=== PATIENT | female | born 1970 | race Two or more races ===

== ENCOUNTER 2024-09-25 14:10 | Outpatient (REF) | payer SELFPAY ==
[2024-09-25 16:04] LABS: Appearance Urine Clear; Color Urine Yellow; Glucose Urine UA Negative (Negative); Leukocyte Esterase Urine Negative (Negative); Nitrite Urine Negative (Negative); PH 6.5 (5.0-9.0); Specific Gravity - Urine 1.015 (1.005-1.025); Urine Blood Negative (Negative); Urine Ketones Negative (Negative); Urine Protein Negative (Neg-Trace)
[2024-09-25 16:07] LABS: Bacteria Urine None Seen (None Seen); Hyaline Casts Urine 0-2 /LPF (0-2); RBC Urine 0-2 /HPF (0-2); WBC Urine 0-5 /HPF (0-5)
--- OUTSIDE RECORDS SUMMARY | 2024-09-25 16:12 | XMS_ITS | Encounter Summary ---
Author Organization [facility] Address [address] [place] [address] Care Team Providers Care Gallery Or Museum Technician Name Role Phone Unavailable Primary Care Provider Unavailabl e Reason for Referral * Imaging (Routine) - Authorized Specialty Diagnoses / Procedures Referred By Satnam muhammad Referred To Contact Radiology Diagnoses Encounter for screening mammogram for malignant neoplasm of breast Procedures BI Mammogram Screening Tomosynthesis Bilateral Scarlett Perez MD [address] [place] [phone] Phone: tel: fax: [address] Phone: tel: fax: Referral ID Status Reason Start Date Expiration Date V isits Requested Visits Authorized [id number] Authorized 09/25/2024 09/25/2025 1 1 Reason for Visit * Reason Comments Generalized Body Aches Encounter Details Date Type Department Care Team (Latest Contact Info) Description 09/25/2024 1:40 PM EDT Office Visit [facility] [address] [place] [address] [phone] Scarlett Perez MD [address] [place] [address] [phone] H/O thyroidectomy (Primary Dx); Mixed hyperlipidemia; Sore throat; Primary HSV infection of mouth; Encounter for screening mammogram for malignant neoplasm of breast Social History Tobacco Use Types Packs/Day Years Used Date Smoking Tobacco: Never Smokeless Tobacco: Never Alcohol Use Standard Drinks/Week Comments Defer 0 (1 standard drink = 0.6 oz pur e alcohol) Alcohol Answer Date Recorded How often do you have a drink containing alcohol ? 0 09/25/2024 How many drinks containing a lcohol do you have on a typical day when you are drinking? 0 09/25/2024 How often do you have six or more drinks on one occasion? 0 09/25/2024 Comments Unknown Sex and Gender Information Value Date Recorded Sex Assigned at Female 09/05/2024 9:45 AM EST Legal Sex Female 9:44 AM EST Gender Identity Female 09/05/2024 9:45 AM EST Sexual Orientation Straight 09/05/2024 9 :45 AM EST documented as of this encounter Last Filed Vital Signs Vital Sign Reading Time Taken Comments Blood Pressure 122/73 09/25/2024 1:39 PM EDT Pulse 64 09/25/2024 1:39 PM EDT Temperature 36.7 ??C (98.1 ??F) 09/25/2024 1:39 PM ED T Respiratory Rate 18 09/25/2024 1:39 PM EDT Oxygen Saturation 98% 09/25/2024 1:39 PM EDT Inhaled Oxygen Concentration - - Weight 71.6 kg (157 lb 12.8 oz) 09/25/2024 1:39 PM EDT Height - - Body Mass Index - - documented in this encounter Progress Notes * Scarlett Perez MD - 09/25/2024 1:40 PM EDT SUBJECTIVE: Bonnie Worthy is a 53 y.o. year old female who presents for acute visit. Denies recent illness, ER visit, or hospitalization. Acute Concerns: LEARY, body aches, chills, L sided back pain, L ear pain for one day. She also notes L sided ear pain,and a cold sore on her upper lip. She has been vaccinated against Flu, though not against COVID this year. Flu and COVID negative in clinic Interim Updates: PMH: hypothyroidism PSH: thyroidectomy 20 years ago Hysterectomy 16 years ago Gallbladder 25 years ago , kids are 31 and 21 Meds: synthroid 100mcg (but has been out for over one month) No smoking, drinking, or illicit drug use Health Maintenance Mammo- due Pap- not needed due to her history of hysterectomy Patient Active Problem List Diagnosis Prediabetes Seasonal allergies Mixed hyperlipidemia H/O thyroidectomy History reviewed. No pertinent surgical history. No family history on file. Social History Social History Narrative Not on file Review of Systems Constitutional: Positive for activity change, appetite change and chills. Negative for diaphoresis,fatigue, fever and unexpected weight change. HENT: Positive for dental problem, ear pain and sore throat. Negative for congestion, drooling, eardischarge, mouth sores and nosebleeds. Lip lesion Eyes: Negative for photophobia, pain, discharge, redness, itching and visual disturbance. Respiratory: Negative for cough and shortness of breath. Cardiovascular: Negative. Gastrointestinal: Negative. Musculoskeletal: Negative. Skin: Negative. Neurological: Positive for headaches. Psychiatric/Behavioral: Negative. OBJECTIVE: Vitals: 09/25/24 1339 BP: 122/73 BP Location: Left arm Patient Position: Sitting BP Cuff Size: Adult Pulse: 64 Resp: 18 Temp: 98.1 ??F (36.7 ??C) TempSrc: Oral SpO2: 98% Weight: 157 lb 12.8 oz (71.6 kg) Physical Exam Vitals and nursing note reviewed. Constitutional: Appearance: Normal appearance. HENT: Head: Normocephalic and atraumatic. Right Ear: Hearing, tympanic membrane, ear canal and external ear normal. Left Ear: A middle ear effusion is present. Mouth/Throat: Comments: Upper lip with erythematous ulcerated lesion Cardiovascular: Rate and Rhythm: Normal rate and regular rhythm. Pulses: Normal pulses. Heart sounds: Normal heart sounds. Pulmonary: Effort: Pulmonary effort is normal. Breath sounds: Normal breath sounds. Skin: General: Skin is warm and dry. Neurological: General: No focal deficit present. Mental Status: She is alert and oriented to person, place, and time. Psychiatric: Mood and Affect: Mood normal. Behavior: Behavior normal. ASSESSMENT/PLAN Problem List Items Addressed This Visit Mixed hyperlipidemia Relevant Orders Comprehensive Metabolic Panel Lipid Panel, Standard Hemoglobin A1c H/O thyroidectomy - Primary Relevant Orders TSH W/Reflex to FT4 Other Visit Diagnoses Sore throat Relevant Orders POCT Rapid COVID Ag Influenza A (ID NOW Rapid Molecular) Influenza B (ID NOW Rapid Molecular) Urinalysis, Complete, with Reflex to Culture Primary HSV infection of mouth Relevant Medications valACYclovir (Valtrex) 1 g tablet Encounter for screening mammogram for malignant neoplasm of breast Relevant Orders BI Mammogram Screening Tomosynthesis Bilateral Follow Up: with new PCP months or sooner prn Allergies Allergen Reactions Fish-Derived Products Penicillin G Current Outpatient Medications: acetaminophen (Tylenol) 500 MG tablet, Take 1 tablet (500 mg) by mouth every 6 (six) hours if needed for mild pain for up to 7 days., Disp: 28 tablet, Rfl: 0 cetirizine (ZyrTEC) 10 MG tablet, Take 1 tablet (10 mg) by mouth Once per day. For ear pain, Disp: 30 tablet, Rfl: 0 clindamycin (Cleocin) 150 MG capsule, Take 2 capsules (300 mg) by mouth 4 times daily for 7 days., Disp: 56 capsule, Rfl: 0 ibuprofen 400 MG tablet, Take 1.5 tablets (600 mg) by mouth every 6 (six) hours for 7 days., Disp: 42 tablet, Rfl: 0 levothyroxine (Synthroid, Levoxyl) 100 MCG tablet, Take 100 mcg by mouth before breakfast., Disp: ,Rfl: valACYclovir (Valtrex) 1 g tablet, Take 2 tablets (2,000 mg) by mouth 2 times daily for 1 day., Disp: 4 tablet, Rfl: 5 Hong Konger Translation: Patient is bilingual and declines translation services documented in this encounter Plan of Treatment Upcoming Encounters Date Type Department Care Team (Late st Contact Info) Description 10/09/2024 11:00 AM EDT Office Visit [facility] [address] [place] [address] Espinal Saranyaanpreet [address] [place] [address] Scheduled Orders Name Type Priority Associated Diagnoses Orde r Schedule POCT Rapid COVID Ag Point of Care Testing Routine Sore throat Ordered: 09/25/2024 Influenza A (ID NOW Rapid Molecular) Point of Care Testing Routine Sore throat Ordered: 09/25/2024 Influenza B (ID NOW Rapid Molecular) Point of Care Testing Routine Sore throat Ordered: 09/25/2024 Comprehensive Metabolic Panel Lab Routine Mixed hyperlipidemia Expected: 09/25/2024 (Approximate), Expires: 09/25/2025 TSH W/Reflex to FT4 Lab Routine H/O thyroidectomy Expected: 09/25/2024 (Approximate), Expires: 09/25/2025 Lipid Panel, Standard Lab Routine Mixed hyperlipidemia Expected: 09/25/2024 (Approximate), Expires: 09/25/2025 Hemoglobin A1c Lab Routine Mixed hyperlipidemia Expected: 09/25/2024 (Approximate), Expires: 09/25/2025 BI Mammogram Screening Tomosynthesis Bilateral Imaging Routine Encounter for screening mammogram for malignant neoplasm of breast Expected: 09/25/2024, Expires: 11/25/2025 documented as of this encounter Procedures Procedure Name Priority Date/Time Associated Diagnosis Comments URINALYSIS, COMPLETE, WITH REFLEX TO CULTURE Routine 09/25/2024 2:13 PM EDT Sore throat documented in this encounter Results * Urinalysis, Complete, with Reflex to Culture (09/25/2024 2:13 PM EDT) Color Urine Yellow [facility] Appearance Urine Clear [facility] PH 6.5 5.0 - 9.0 [facility] Glucose Urine UA Negative Negative mg/dL [facility] Urine Blood Negative Negative [facility] Specific [place] - Urine 1.015 1.005 - 1.025 [facility] Urine Protein Negative Neg-Trace mg/dL [facility] Urine Ketones Negative Negative mg/dL [facility] Nitrite Urine Negative Negative [facility] Leukocyte Esterase Urine Negative Negative [facility] RBC Urine 0-2 0 - 2 /HPF [facility] Urine WBC 0-5 0 - 5 /HPF [facility] Urine Squamous Epithelial Cell 6-10 0 - 2 /HPF [facility] Urine Bacteria None Seen None Seen [facility] Hyaline Casts, Urine 0-2 0 - 2 /LPF [facility] Urine 09/25/2024 2:13 PM EDT 09/25/2024 3:58 PM EDT Narrative [facility] - 09/25/2024 4:07 PM EDT Urine, Clean Catch us Scarlett Perez MD LAB URINE ORDERABLES Final Res ult [facility] [address] [place] [address] [phone] documented in this encounter Visit Diagnoses Diagnosis H/O thyroidectomy- Primary Mixed hyperlipidemia Sore throat Acute pharyngitis Primary HSV infection of mouth Encounter for screening mammogram for malignant neoplasm of breast documented in this encounter
--- OUTSIDE RECORDS SUMMARY | 2024-09-25 16:12 | XMS_ITS | Encounter Summary ---
Author Organization [employer] Address [address] [place] [address] Care Team Providers Care Concrete Smoother Name Role Phone Unavailable Primary Care Provider Unavailabl e Reason for Visit * Reason Comments Routine Cleaning Dental Exam Encounter Details Date Type Department Care Team ([facility] st Contact Info) Description 09/06/2024 11:00 AM EST Office Visit [facility] [address] [place] [address] Shelby Abraham Social History Tobacco Use Types Packs/Day Years Used Date Smoking Tobacco: Never Smokeless Tobacco: Never Tobacco Cessation:Counseling Given: Not Answered Alcohol Use Standard Drinks/Week Comments Defer 0 (1 standard drink = 0.6 oz pur e alcohol) Comments Unknown Sex and Gender Information Value Date Recorded Sex Assigned at Female 09/05/2024 9:45 AM EST Legal Sex Female 9:44 AM EST Gender Identity Female 09/05/2024 9:45 AM EST Sexual Orientation Straight 09/05/2024 9: 45 AM EST documented as of this encounter Last Filed Vital Signs Vital Sign Reading Time Taken Comments Blood Pressure 128/84 09/06/2024 10:52 AM EST Pulse - - Temperature - - Respiratory Rate - - Oxygen Saturation - - Inhaled Oxygen Concentration - - Weight - - Height - - Body Mass Index - - documented in this encounter Progress Notes * Shelby Abraham - 09/06/2024 11:00 AM EST Patient ID: Bonnie Worthy is a 53 y.o. female. Time Out: Timeout Date: 09/06/24, Timeout Time: 1114 Location: [facility] Tooth: Maxilla and Mandible Procedure: X-rays and Prophylaxis Verified the above with patient, nurse assistant, and provider. Confirmed via patient's chart, intraorally and by radiographs. Stripper Machine Operator: not applicable Medical Hx: Vitals: Blood pressure 128/84. Medications, Med Hx reviewed with patient and updated in chart. Treatment Provided Dental procedures in this visit D1110 - PROPHYLAXIS - ADULT (Completed) Service provider: Shelby Salinas provider: Estrella Espinal [id number] - CASE PRESENTATION, DETAILED AND EXTENSIVE TREATMENT PLANNING (Completed) Service provider: Shelby Abraham Billjames provider: Estrella Espinal D1330 - ORAL HYGIENE INSTRUCTIONS (Completed) Service provider: Shelby Abraham Billjames provider: Estrella Espinal D0210 - INTRAORAL - COMPLETE SERIES OF RADIOGRAPHIC IMAGES (Completed) Service provider: Shelby Abraham Billjames provider: Estrella Espinal Instruments Used: Ultrasonic Scalers, Hand Scalers, and Prophy angle Fluoride: N/A Oral Cancer Screening: No lesions Head/Neck Exam: No Lesions Calculus: Light and Generalized Plaque: Light and Generalized Stain: Heavy and Generalized Bleeding: Light and Localized Gingiva: Perio Charting Completed, Recession- localized, and Erythematous OH: Poor Perio Chart: Completed Oral hygiene instructions provided to patient including brushing technique and flossing. Recommendations: Sidney two times daily, modified shah technique, Floss daily, Electric toothbrush, Soft bristle toothbrush, Sidney Tongue, Anti-sensitivity toothpaste Recall Frequency: 6 mo NV: Exam Hygienist: Shelby Abraham RDH documented in this encounter Plan of Treatment Upcoming Encounters Date Type Department Care Team (Late st Contact Info) Description 10/09/2024 11:00 AM EDT Office Visit [facility] [address] [place] [address] Espinal[place] cardenasrandall [address] [place] [address] Scheduled Orders Name Type Priority Associated Diagnoses Orde r Schedule COMPREHENSIVE ORAL EVALUATION - NEW OR ESTABLISHED PATIENT Dental Routine 1 Occurrence s starting 09/06/2024 documented as of this encounter Procedures Procedure Name Priority Date/Time Associated Diagnosis Comments PROPHYLAXIS - ADULT Routine 09/06/2024 1 1:00 AM EST ORAL HYGIENE INSTRUCTIONS Routine 02/19/ 2025 11:00 AM EST INTRAORAL - COMPLETE SERIES OF RADIOGRAPHIC IMAGES Routine 09/06/2024 11:00 AM EST CASE PRESENTATION, DETAILED AND EXTENSIVE TREATMENT PLANNING Routine 09/06/2024 11:00 AM EST documented in this encounter Visit Diagnoses Not on filedocumented in this encounter
--- OUTSIDE RECORDS SUMMARY | 2024-09-25 16:12 | XMS_ITS | Encounter Summary ---
Author Organization [employer] Address [address] [facility] [address] [place] [address] Care Team Providers Care Logistics Planner Name Role Phone Unavailable Primary Care Provider Unavailabl e Reason for Visit * Reason Comments Dental Pain Lower anterior gums hurt/ swollen Encounter Details Date Type Department Care Team ([facility] st Contact Info) Description 09/18/2024 2:00 PM EST Office Visit [facility] [address] [place] [address] Estrella Espinal [address] [place] [address] Social History Tobacco Use Types Packs/Day Years [...] AM EST documented as of this encounter Progress Notes * Estrella Espinal - 09/18/2024 2:00 PM EST Images from the original note were not included. Dental procedures in this visit D0140 - LIMITED ORAL EVALUATION - PROBLEM FOCUSED (Completed) Service provider: Estrella Espinal Billing provider: Estrella Espinal [id number] - CASE PRESENTATION, DETAILED AND EXTENSIVE TREATMENT PLANNING (Completed) Service provider: Estrella Espinal Billing provider: Estrella Espinal Patient ID: Bonnie Worthy is a 53 y.o. female. Time Out: Timeout Date: 09/18/24 (emergency), Timeout Time: 1414 Location: [facility] Tooth: Lower anterior teeth Procedure: Exam Verified the above with patient, radiology assistant, and provider. Confirmed via patient's chart, intraorally and by radiographs. Fur Trimmer: Yes. Language: Burmese. Fur Trimmer's Name: Pt's relative Chief Complaint Patient presents with Dental Pain Lower anterior gums hurt/ swollen Medical Hx: Vitals: There were no vitals taken for this visit. Past Medical History: Diagnosis Date Disease of thyroid gland History of ST elevation myocardial infarction (STEMI) Medications: Outpatient Encounter Medications as of 09/18/2024 Medication Sig Dispense Refill levothyroxine (Synthroid, Levoxyl) 100 MCG tablet Take 100 mcg by mouth before breakfast. acetaminophen (Tylenol) 500 MG tablet Take 1 tablet (500 mg) by mouth every 6 (six) hours if neededfor mild pain for up to 7 days. 28 tablet 0 albuterol 108 (90 Base) MCG/ACT inhaler Inhale 2 puffs every 4 (four) hours if needed. (Patient nottaking: Reported on 09/18/2024) clindamycin (Cleocin) 150 MG capsule Take 2 capsules (300 mg) by mouth 4 times daily for 7 days. 56capsule 0 ibuprofen 400 MG tablet Take 1.5 tablets (600 mg) by mouth every 6 (six) hours for 7 days. 42 tablet 0 loratadine (Claritin) 10 MG tablet Take 10 mg by mouth if needed each day. (Patient not taking: Reported on 09/18/2024) montelukast (Singulair) 10 MG tablet Take 10 mg by mouth at bedtime. (Patient not taking: Reported on 09/18/2024) Multiple Vitamin (Multi-Vitamin) tablet Take 1 tablet by mouth Once per day. (Patient not taking: Reported on 09/18/2024) omeprazole (PriLOSEC) [address] capsule Take 20 mg by mouth before breakfast. (Patient not taking: Reported on 09/18/2024) No facility-administered encounter medications on file as of 09/18/2024. 53 y/o female presents for an emergency exam seen by Dr. Estrella Espinal DMD. Chief Complaint: I have pain in lower anterior teeth since I got cleaning couple of days back Medical History: Patient does not report any changes in health issues that could alter the Treatment Plan. Medical consult / medical clearance needed: None KLETSEL DEHE WINTUN: Pain: moderate Duration: intermittent Pain radiating: no Postural variation: no Allergies: Reviewed in EHR Medications: Reviewed in EHR Radiographs X-rays taken today: none taken today Discussion: -Pt stated that patient has pain in lower anterior teeth since pt got cleaning done and also has sensitivity to cold and hot foods and beverages. -Upon exam, periapical abscess evident in relation to #23, #24 with redness, tenderness and inflammation in lower anterior gingival tissues in relation to #22-#27 region. -Redness and inflammation noted in relation #22. -#23, 24 grade 1-2 mobile; #25 chipped tooth (missing filling/trauma/accident??- pt not sure). -Periapical radiolucency evident in relation to #22, #24, #25 and periapical abscess in relation to#24, #25. -Pt was prescribed antibiotics and pain medications and re-evaluation will be done after 3 weeks. -Pt was also recommended comprehensive exam. -OHI reviewed. Emphasis was laid on maintaining good oral hygiene regimen at home along with regular visits to dentist. -Pt understood, was satisfied with our conversation and agreed with tx plan; dismissed in good condition. -All questions answered. Soft tissue exam: redness and inflammation in lower anterior gingiva and periapical abscess in relation to #24,25; OCS- negative Head and neck exam: Lymph Nodes, Lips, Palate, Buccal Mucosa, Floor of Mouth, Tongue, Tonsils, Alveolar Ridges, Oropharynx, Salivary Ducts, Vestibules - no abnormal findings. TMJ/Occlusal - TMJ is within normal limits. Oral Cancer Risk - low Oral Hygiene Instruction Provided - Yes Oral Hygiene Instructions: Cable two times daily, modified shah technique, Floss daily, Electric toothbrush, Soft bristle toothbrush, Cable Tongue. Referrals - None Treatment plan: -re-evaluation after 3 weeks -exam/x-rays as needed All questions answered and expressed understanding. Dismissed in good condition. Rx: Clindamycin 300 mg 4 times a day for 7 days Ibuprofen 600 mg every 6 hours prn for pain for 7 days Acetaminophen 500 mg every 6 hours prn for pain for 7 days NOTE- Pt mentioned pt is allergic to penicillins but was not sure, so clindamycin was prescribed. NV: re-evaluation after 3 weeks Mule Tender: Dulce Camarillo Dentist: Dr. Estrella Espinal, DMD documented in this encounter Plan of Treatment Upcoming Encounters Date Type Department Care Team ([facility] st Contact Info) Description 10/09/2024 11:00 AM EDT Office Visit [facility] [address] [place] [address] Estrella Espinal [address] [place] [address] Scheduled Orders Name Type Priority Associated Diagnoses Orde r Schedule RE-EVAL - LIMITED, PROBLEM FOCUSED (EST PATIENT; NOT POST-OP VISIT) Dental Routine [address] arting 09/18/2024 documented as of this encounter Procedures Procedure Name Priority Date/Time Associated Diagnosis Comments LIMITED ORAL EVALUATION - PROBLEM FOCUSED Routine 09/18/2024 2:00 PM EST CASE PRESENTATION, DETAILED AND EXTENSIVE TREATMENT PLANNING Routine 09/18/2024 2:00 PM EST documented in this encounter Visit Diagnoses Not on filedocumented in this encounter
--- OUTSIDE RECORDS SUMMARY | 2024-09-25 16:13 | XMS_ITS | Clinical Summary ---
Author Organization [employer] Address [address] [place] [address] Care Team Providers Care Erp Specialist Name Role Phone Unavailable Primary Care Provider Unavailabl e Allergies Active Allergy Reactions Criticality Noted Date Comments Fish-Derived Products 02/25/2024 Penicillin G 09/18/2024 Medications levothyroxine (Synthroid, Levoxyl) 100 MCG tablet Take 100 mcg by mouth before breakfast. 06/14/20 24 Active clindamycin (Cleocin) 150 MG capsule Take 2 capsules (300 mg) by mouth 4 times daily for 7 days. 56 capsule 09/19/19 25 025 Active ibuprofen 400 MG tablet Take 1.5 tablets (600 mg) by mouth every 6 (six) hours for 7 days. 42 tablet 09/19/19 25 025 Active acetaminophen (Tylenol) 500 MG tablet Take 1 tablet (500 mg) by mouth every 6 (six) hours if needed for mild pain for up to 7 days. 28 tablet 09/26/19 25 025 Active cetirizine (ZyrTEC) 10 MG tablet Take 1 tablet (10 mg) by mouth Once per day. For ear pain 30 tablet 09/26/19 25 025 Active valACYclovir (Valtrex) 1 g tabletIndicati ons:Primary HSV infection of mouth Take 2 tablets (2,000 mg) by mouth 2 times daily for 1 day. 4 tablet 5 09/26/19 25 025 Active albuterol 108 (90 Base) MCG/ACT inhaler Inhale 2 puffs every 4 (four) hours if needed. 02/25/20 24 025 Discontinued(Th erapy completed) omeprazole (PriLOSEC) [address] capsule Take 20 mg by mouth before breakfast. 06/14/20 025 Discontinued( erapy completed) Multiple Vitamin (Multi-Vitamin ) tablet Take 1 tablet by mouth Once per day. 04/18/20 025 Discontinued( erapy completed) montelukast (Singulair) 10 MG tablet Take 10 mg by mouth at bedtime. 02/25/20 025 Discontinued( erapy completed) loratadine (Claritin) 10 MG tablet Take 10 mg by mouth if needed each day. 02/25/20 025 Discontinued( erapy completed) acetaminophen (Tylenol) 500 MG tablet Take 1 tablet (500 mg) by mouth every 6 (six) hours if needed for mild pain for up to 7 days. 28 tablet 09/19/19 Discontinued(Re order (will not trigger notification to Pharmacy)) Active Problems Problem Noted Date Diagnosed Date Prediabetes 02/28/2024 Seasonal allergies 02/28/2024 Mixed hyperlipidemia 02/28/2024 H/O thyroidectomy 02/28/2024 Encounters Date Type Department Care Team Description 09/25/2024 1:40 PM EDT Office Visit [facility] [address] [place] [id number] Scarlett Perez MD H/O thyroidectomy (Primary Dx); Mixed hyperlipidemia; Sore throat; Primary HSV infection of mouth; Encounter for screening mammogram for malignant neoplasm of breast 09/18/2024 2:00 PM EST Office Visit [facility] [address] [place] [address] sEtrella Espinal 09/06/2024 11:00 AM EST Office Visit [facility] [address] [place] [address] Shelby Abraham from Last 3 Months Social History Tobacco Use Types Packs/Day Years [...] Orientation Straight 09/05/2024 9: 45 AM EST Last Filed Vital Signs Vital Sign Reading [...] - - Body Mass Index - - Plan of Treatment Upcoming Encounters Date Type Department Care Team (Late st Contact Info) Description 10/09/2024 11:00 AM EDT Office Visit [facility] [address] [place] [phone] Estrella Espinal [address] [place] [address] Health Maintenance Due Date Last Done Comments CT Colonography 1968 Colonoscopy 1968 Colorectal Cancer Screening 1968 Dental Oral Exam 1968 Depression Screening 1968 Diabetes: Hemoglobin A1C 1968 FIT DNA/Cologuard 1968 FIT 1968 FOBT 1968 SDOH Screening 1968 Sigmoidoscopy 1968 Hepatitis C Screening 1986 DTaP/Tdap/Td Vaccines (1 - Tdap) 10/27/1987 Hepatitis B Vaccines (1 of 3 - 19+ 3-dose series) 10/27/1987 Pap Smear 1989 Cervical Cancer Screening 1998 HPV/Cotest 1998 Mammogram 2008 Pneumococcal Vaccine: 50+ Ye ars (1 of 1 - PCV) 2018 Zoster Vaccines (1 of 2) 2018 COVID-19 Vaccine ( - 2023-2 5 season) 2024 Dental Prophylaxis 03/07/2025 09/06/2024 Dental X-Ray: Bitewings 09/07/2025 09/06/2024 Alcohol/Substance Use Screening 09/25/2025 Tobacco Screening 09/25/2025 09/25/2024 Dental X-Ray: Full Mouth 09/07/2027 09/06/2024 RSV Patients and Pa tients Aged 60 years or older (1 - 1-dose 75+ series) 10/27/2043 HIV Screening Completed 02/25/2024 Influenza Vaccine Completed 04/18/2024 HIB Vaccines Aged Out No longer eligi ble based on patient's age to complete this topic HPV Vaccines Aged Out No longer eligi ble based on patient's age to complete this topic Hepatitis A Vaccines Aged Out No long er eligible based on patient's age to complete this topic IPV Vaccines Aged Out No longer eligi ble based on patient's age to complete this topic Meningococcal Vaccine Aged Out No jostin alee eligible based on patient's age to complete this topic RSV under 20 months Aged Out No longe r eligible based on patient's age to complete this topic Rotavirus Vaccines Aged Out No longer eligible based on patient's age to complete this topic Procedures Procedure Name Priority Date/Time Associated Diagnosis Comments URINALYSIS, COMPLETE, WITH REFLEX TO CULTURE Routine 09/25/2024 2:13 PM EDT Sore throat CASE PRESENTATION, DETAILED AND EXTENSIVE TREATMENT PLANNING Routine 09/18/2024 2:00 PM EST LIMITED ORAL EVALUATION - PROBLEM FOCUSED Routine 09/18/2024 2:00 PM EST INTRAORAL - COMPLETE SERIES OF RADIOGRAPHIC IMAGES Routine 09/06/2024 11:00 AM EST ORAL HYGIENE INSTRUCTIONS Routine 09/06/2024 11:00 AM EST CASE PRESENTATION, DETAILED AND EXTENSIVE TREATMENT PLANNING Routine 09/06/2024 11:00 AM EST PROPHYLAXIS - ADULT Routine 09/06/2024 1 1:00 AM EST from Last 3 Months Results * Urinalysis, Complete, with Reflex to Culture (09/25/2024 2:13 PM EDT) Color Urine Yellow [facility] Appearance Urine Clear [facility] PH 6.5 5.0 - 9.0 [facility] Glucose Urine UA Negative Negative mg/dL [facility] Urine Blood Negative Negative [facility] Specific [place] - Urine 1.015 1.005 - 1.025 [facility] Urine Protein Negative Neg-Trace mg/dL [facility] Urine Ketones Negative Negative mg/dL [facility] Nitrite Urine Negative Negative [facility] Leukocyte Esterase Urine Negative Negative [facility] RBC Urine 0-2 0 - 2 /HPF [facility] Urine WBC 0-5 0 - 5 /HPF [facility] Urine Squamous Epithelial Cell 6-10 0 - 2 /HPF [facility] Urine Bacteria None Seen None Seen [facility] Hyaline Casts, Urine 0-2 0 - 2 /LPF [facility] Urine 09/25/2024 2:13 PM EDT 09/25/2024 3:58 PM EDT Narrative [facility] - 09/25/2024 4:07 PM EDT Urine, Clean Catch us Scarlett Perez MD LAB URINE ORDERABLES Final Res ult [facility] [address] [place] [address] [phone] from Last 3 Months Insurance [employer] HSN FULL DENTAL - HSN FULL (MEDICAID)
--- OUTSIDE RECORDS SUMMARY | 2024-09-25 16:13 | XMS_ITS | Clinical Summary ---
Author Organization [facility] Address [address] [place] [address] Care Team Providers Care Risk Manager Name Role Phone Robin Arriola NP Primary Care Provider [phone] Source Comments PLEASE NOTE, if this patient is a minor, it may be UNLAWFUL to discuss sensitive information that is contained in these records (such as FAMILY PLANNING, MENTAL HEALTH or SUBSTANCE ABUSE) with the minor patient's parent or other person without the patient's specific authorization.[facility] Allergies Active Allergy Reactions Criticality Noted Date Comments Diphth,Pertus(Acell),Tetanus Swelling 024 Fish Containing Products 02/25/2024 Medications loratadine (CLARITIN) 10 mg tabletIndications: Seasonal allergies Take 1 Tablet by mouth once daily as needed for allergies 90 Tablet 4 Active acetaminophen (TYLENOL) 500 mg tabletIndications: Body aches Take 1 Tablet by mouth every 6 (six) hours as needed for pain 30 Tablet 4 Active albuterol HFA 90 mcg/actuation inhalerIndications :SOB (shortness of breath) Inhale 2 Puffs into the lungs every 4 (four) hours as needed for shortness of breath 18 g 1 4 Active montelukast (SINGULAIR) 10 mg tabletIndications: SOB (shortness of breath) Take 1 Tablet by mouth nightly at bedtime 90 Tablet 4 Active multivitamin tabletIndications: Other fatigue Take 1 Tablet by mouth once daily for 90 days 30 Tablet 4 Active fluticasone (FLONASE) 50 mcg/actuation nasal sprayIndications:S easonal allergies,Need for vaccination Place 1 [place] in both nostrils once daily for 30 days 16 g 3 4 Active PARoxetine (PAXIL) 20 mg tabletIndications: Anxiety and depression Take 1 Tablet by mouth every morning for 120 days 30 Tablet 3 4 Active levothyroxine 100 mcg tabletIndications: H/O thyroidectomy Take 1 Tablet by mouth every morning before breakfast 90 Tablet 1 4 Active omeprazole (PRILOSEC) [address] capsuleIndications :Dyspepsia Take 1 Capsule by mouth every morning before breakfast 90 Capsule 4 Active Active Problems Problem Noted Date Diagnosed Date Prediabetes 02/28/2024 Mixed hyperlipidemia 02/28/2024 H/O thyroidectomy 02/28/2024 Seasonal allergies 02/28/2024 Immunizations Name Administration Dates Next Due Influenza (FLUBLOK),recombin ant,injectable,preservative Free 04/18/2024 Family History Medical History Relation Name Comments No Known Problems Brother X1 No Known Problems Father Coronary Artery Disease Mother Diabetes Mellitus II Mother HTN Mother Relation Name Status Comments Brother X1 Alive Father Mother Alive Social History Tobacco Use Types Packs/Day Years Used Date Smoking Tobacco: Never Smokeless Tobacco: Never Alcohol Use Standard Drinks/Week Comments Not Currently 0 (1 standard drink = 0.6 oz pur e alcohol) Social Connections Answer Date Recorded Connectedness 0 04/04/2024 Financial Resource Strain Answer Date R ecorded Financial Resource Strain 0 2023 Stress Answer Date Recorded Stress 0 02/25/2024 Physical Activity Answer Date Recorded Physical Activity 0 02/25/2024 Food Insecurity Answer Date Recorded Food 0 04/13/2024 Transportation Needs Answer Date Record ed Transportation 0 02/25/2024 Housing Stability Answer Date Recorded Housing 0 02/25/2024 Safety and Environment Answer Date Mack rded Safety 0 02/25/2024 Utilities Answer Date Recorded Utilities 0 02/25/2024 Employment Answer Date Recorded Stress 0 04/04/2024 Comments No Sex and Gender Information Value Date Recorded Sex Assigned at Female 02/24/2024 7:22 AM PDT Legal Sex Female 7:20 AM PDT Gender Identity Female 02/24/2024 7:22 AM PDT Sexual Orientation Straight 02/24/2024 7: 22 AM PDT Last Filed Vital Signs Vital Sign Reading Time Taken Comments Blood Pressure 130/80 04/18/2024 1:16 PM EDT Pulse 66 04/18/2024 1:16 PM EDT Temperature 36.9 ??C (98.5 ??F) 02/25/2024 9:30 AM ED T Respiratory Rate 16 04/18/2024 1:16 PM EDT Oxygen Saturation 98% 04/18/2024 1:16 PM EDT Inhaled Oxygen Concentration - - Weight 68 kg (150 lb) 06/14/2024 9:17 AM EST Height 132.1 cm (4' 4 ) 04/18/2024 1:16 PM EDT Body Mass Index 39 04/18/2024 1:16 PM EDT Plan of Treatment Health Maintenance Due Date Last Done Comments Imm-DTaP/Tdap/Td (1 - Tdap) 10/27/1987 Imm-Hepatitis B (1 of 3 - 19 + 3-dose series) 10/27/1987 Breast Cancer Screening (Mammogram) 2008 CT Colonography 2013 Colonoscopy 2013 Colorectal Cancer Screening 2013 FIT/gFOBT 2013 Fecal DNA 2013 Flexible Sigmoidoscopy 2013 Imm-Zoster, Recombinant (1 of 2) 2018 [id number] ( season) 2024 Alcohol and Drug Screen 07/19/2024 04/18/2024 Depression Monitoring 07/19/2024 04/18/2024 Diabetes Screening 02/24/2025 02/25/2024, 02/25/2024 Tobacco Screening 02/24/2025 02/25/2024 Hypertension Screening (#1) 04/18/2025 TSH Monitoring 04/19/2025 04/19/2024, 02/25/2024 Lipid Screening 02/24/2027 02/25/2024 HIV Screening Completed 02/25/2024 Hepatitis C Screening Completed 02/25/2024 Imm-Influenza Completed 04/18/2024 Procedures Procedure Name Priority Date/Time Associated Diagnosis Comments TSH W/RFLX FREE T4 Routine 04/19/2024 10 :00 AM EDT H/O thyroidectomy HIV 1/2 AG & AB W/RFLX (4TH GEN) Routine 02/25/2024 10:05 AM EDT Encounter to establish care Other fatigue SOB (shortness of breath) ACUTE HEPATITIS PANEL W/RFLX Routine 02/25/2024 10:05 AM EDT Encounter to establish care Other fatigue SOB (shortness of breath) HGA1C W/EAG Routine 02/25/2024 10:05 AM EDT Encounter to establish care Other fatigue SOB (shortness of breath) LIPIDS W RFLX TO DIRECT LDL Routine 02/25/2024 10:05 AM EDT Encounter to establish care Other fatigue SOB (shortness of breath) from Last 3 Months or Most Recently Relevant to Health Maintenance Results * TSH W/RFLX FREE T4 (04/19/2024 10:00 AM EDT) TSH W/REFLEX TO FT4 1.39 0.40 - 4.50 mIU/L [facility] Comment: ?Reference Range ?> or = 20 Years ??0.40-4.50 ? Ranges ?First trimester ?0.26-2.66 ?Second trimester ?? 0.55-2.73 ?Third trimester ?0.43-2.91 Blood Blood / Unknown 04/19/2024 1 0:00 AM EDT 04/19/2024 10:01 AM EDT Narrative [facility] - 04/20/2024 6:34 AM EDT FASTING:NO us Trevon Ramirez BARBERING TEACHER LAB - BLOOD DRAW Final Resul t [facility] [address] [address], [employer] [facility] [address] [place] [address] * HIV 1/2 AG & AB W/RFLX (4TH GEN) (02/25/2024 10:05 AM EDT) HIV AG/AB, 4TH GEN NON-REAC TIVE NON-REAC TIVE [facility] Comment: HIV-1 antigen and HIV-1/HIV-2 antibodies were not detected. There is no laboratory evidence of HIV infection. PLEASE NOTE: This information has been disclosed to you from records whose confidentiality may be protected by state law. ??If your state requires such protection, then the state law prohibits you from making any further disclosure of the information without the specific written consent of the person to whom it pertains, or as otherwise permitted by law. A general authorization for the release of medical or other information is NOT sufficient for this purpose. ?? For additional information please refer to http://education.[employer]/faq/EUC127 (This link is being provided for informational/ educational purposes only.) The performance of this assay has not been clinically validated in patients less than 2 years old. Blood Blood / Unknown 02/25/2024 1 0:05 AM EDT 02/25/2024 10:05 AM EDT Narrative [facility] - 02/26/2024 8:37 AM EDT FASTING:YES us Laura Mejia PA-C LAB - BLOOD DRAW Final Resul t [facility] [address] [address], [employer] [facility] [address] [place] [address] * (ABNORMAL) HGA1C W/EAG (02/25/2024 10:05 AM EDT) Pathologist [facility] HEMOGLOBIN A1C 6.0(H) <5.7 % of total Hgb [facility] Comment: For someone without known diabetes, a hemoglobin A1c value between 5.7% and 6.4% is consistent with prediabetes and should be confirmed with a follow-up test. For someone with known diabetes, a value <7% indicates that their diabetes is well controlled. A1c targets should be individualized based on duration of diabetes, age, comorbid conditions, and other considerations. This assay result is consistent with an increased risk of diabetes. Currently, no consensus exists regarding use of hemoglobin A1c for diagnosis of diabetes for children. EAG (MG/DL) 126 mg/dL [employer] [facility] EAG (MMOL/L) 7.0 mmol/L [employer] [facility] Blood Blood / Unknown 02/25/2024 1 0:05 AM EDT 02/25/2024 10:05 AM EDT Narrative [facility] - 02/26/2024 8:37 AM EDT FASTING:YES Laura Mejia PA-C LAB - BLOOD DRAW Edited Resu lt - Final [facility] [address] [address], [employer] [address] [address] * ACUTE HEPATITIS PANEL W/RFLX (02/25/2024 10:05 AM EDT) HEPATITIS A IGM ANTIBODY NON-REACT ELLYN NON-REACT ELLYN [facility] COMMENT [facility] HEPATITIS B SURFACE ANTIGEN NON-REACT ELLYN NON-REACT ELLYN [facility] COMMENT [facility] HEPATITIS B CORE IGM ANTIBODY NON-REACT ELLYN NON-REACT ELLYN [facility] COMMENT [facility] HEPATITIS C ANTIBODY NON-REACT ELLYN NON-REACT ELLYN [facility] Comment: HCV antibody was non-reactive. There is no laboratory evidence of HCV infection. In most cases, no further action is required. However, if recent HCV exposure is suspected, a test for HCV RNA (test code 07411) is suggested. For additional information please refer to http://education.[employer]/faq/JPC36r7 (This link is being provided for informational/ educational purposes only.) Blood Blood / Unknown 02/25/2024 1 0:05 AM EDT 02/25/2024 10:05 AM EDT Narrative [facility] - 02/26/2024 8:37 AM EDT FASTING:YES For additional information, please refer to http://[employer]/faq/ITW202 (This link is being provided for informational/ educational purposes only.) For additional information, please refer to http://[employer]/faq/DXD528 (This link is being provided for informational/ educational purposes only.) For additional information, please refer to http://[employer]/faq/KMB216 (This link is being provided for informational/ educational purposes only.) us Laura Mejia PA-C LAB - BLOOD DRAW Final Resul t [facility] [address] [place] [id number], [employer] [address] [address] * (ABNORMAL) LIPIDS W RFLX TO DIRECT LDL (02/25/2024 10:05 AM EDT) [facility] Signature CHOLESTEROL, TOTAL 242(H) <200 mg/dL [employer] [facility] HDL CHOLESTEROL 71 > OR = 50 mg/dL [employer] [facility] TRIGLYCERIDES 140 <150 mg/dL [employer] [facility] LDL-CHOLESTEROL 145(H) 99 mg/dL (calc) [facility] Comment: Reference range: <100 Desirable range <100 mg/dL for primary prevention; ?? <70 mg/dL for patients with CHD or diabetic patients with > or = 2 CHD risk factors. LDL-C is now calculated using the Velma calculation, which is a validated novel method providing better accuracy than the Friedewald equation in the estimation of LDL-C. Rosas GARCIA et al. TRUMAN. 2013;310(19): 7417-2943 (http://education.[employer]/faq/DAG703) CHOL/HDLC RATIO 3.4 <5.0 (calc) [facility] NON-HDL CHOLESTEROL 171(H) <130 mg/dL (calc) [facility] Comment: For patients with diabetes plus 1 major ASCVD risk factor, treating to a non-HDL-C goal of <100 mg/dL (LDL-C of <70 mg/dL) is considered a therapeutic option. Blood Blood / Unknown 02/25/2024 1 0:05 AM EDT 02/25/2024 10:05 AM EDT Narrative [facility] - 02/26/2024 8:37 AM EDT FASTING:YES Laura Mejia PA-C LAB - BLOOD DRAW Final Resul t [facility] [address] [address], [facility] [address] [place] [address] from Last 3 Months or Most Recently Relevant to Health Maintenance Insurance [place] MEDICA[employer] [place] Care Teams Risk Manager Relationship Specialty Start Date End Date Robin Arriola NP [address] [place] [address] PCP - General Family Medicine, KETTLE OPERATOR HEAD 05/11/24
[2024-09-25 16:35] LABS: Estimated Average Glucose 117 mg/dL; Hemoglobin A1C 129.7819 umol/L; Hemoglobin A1c % 5.7 % (<6.0)
[2024-09-25 17:32] LABS: Alanine Aminotransferase 43 U/L (0-31); Albumin Level 3.8 g/dL (3.5-5.0); Alkaline Phosphatase 103 U/L (39-117); Anion Gap 13 (12-20); Aspartate Amino Transferase 32 U/L (5-31); Bilirubin Total 0.5 mg/dL (0.0-1.0); Blood Urea Nitrogen 14 mg/dL (9-16); Calcium 8.6 mg/dL (8.4-10.2); Carbon Dioxide 26 mmol/L (22-29); Chloride 107 mmol/L (96-108); Cholesterol 149 mg/dL (<200); Estimated Glomerular Filt Rate > 60; Glucose Random 117 mg/dL (60-115); HDL Cholesterol 47 mg/dL (>40); LDL Cholesterol Calculated 67 mg/dL (<100); Potassium 4.2 mmol/L (3.3-5.1); Sodium 142 mmol/L (135-145); TSH reflex Free T4 1.73 uIU/mL (0.32-4.0); Total Protein 7.5 g/dL (6.5-8.0); Triglycerides 176 mg/dL (<150)
== END 2024-09-25 14:11 | disposition home or self-care (01) ==
LOC: HO.HHCL 14:10
PROVIDERS: Visit Provider General Practice
DX: E78.2 Mixed hyperlipidemia (principal); J02.9 Acute pharyngitis, unspecified; E89.0 Postprocedural hypothyroidism; Z13.1 Encounter for screening for diabetes mellitus
CPT/HCPCS: 36415; 80053; 80061; 81001; 83036; 84443

== ENCOUNTER 2024-11-23 10:33 | Outpatient (REF) | payer SELFPAY ==
--- OUTSIDE RECORDS SUMMARY | 2024-11-23 11:55 | XMS_ITS | Encounter Summary ---
Author Organization [employer] Address [address] [place] [address] Care Team Providers Care Customer Support Consultant Name Role Phone Unavailable Primary Care Provider Unavailabl e Reason for Visit * Reason Comments Rash Facial Swelling Encounter Details Date Type Department Care Team ([facility] Contact Info) Description 11/23/2024 9:40 AM EDT Office Visit [facility] [address] [place] [phone] Carmen Lombardi MD [address] [place] [phone] Facial swelling (Primary Dx); Rash Social History Tobacco Use Types Packs/Day Years [...] Sign Reading Time Taken Comments Blood Pressure 128/75 11/23/2024 9:42 AM EDT Pulse 74 11/23/2024 9:42 AM EDT Temperature 36.7 ??C (98 ??F) 11/23/2024 9:42 AM EDT Respiratory Rate 16 11/23/2024 9:42 AM EDT Oxygen Saturation 98% 11/23/2024 9:42 AM EDT Inhaled Oxygen Concentration - - Weight 72.8 kg (160 lb 9.6 oz) 11/23/2024 9:42 A M EDT Height - - Body Mass Index - - documented in this encounter Progress Notes * Kameron Armand - 11/23/2024 9:40 AM EDT Subjective Patient ID: Bonnie Worthy is a 54 y.o. female with past medical history of prediabetes, elevated cholesterol, and thyroid disease S/P thyroidectomy who presents to walk in clinic for Rash and Facial Swelling. Pt reports she has had 4 days of facial and arm rashes. She also reports hot flashes, dizziness andarm/leg pains. Pt notes she thinks she is going through menopause. Denies any allergen exposure, but notes she had a similar reaction to allergies in the past not to this extent. Review of Systems Constitutional: Negative for fatigue, fever and unexpected weight change. HENT: Positive for facial swelling. Respiratory: Negative for cough. Cardiovascular: Negative for chest pain. Gastrointestinal: Negative for abdominal pain. Genitourinary: Negative for difficulty urinating. Musculoskeletal: Positive for myalgias. Skin: Positive for rash. Objective Visit Vitals BP 128/75 (BP Location: Left arm, Patient Position: Sitting, BP Cuff Size: Adult) Pulse 74 Temp 98 ??F (36.7 ??C) (Temporal) Resp 16 Wt 160 lb 9.6 oz (72.8 kg) SpO2 98% Smoking Status Never Physical Exam Constitutional: Appearance: Normal appearance. Cardiovascular: Rate and Rhythm: Normal rate and regular rhythm. Heart sounds: Normal heart sounds. Pulmonary: Effort: Pulmonary effort is normal. Breath sounds: Normal breath sounds. Musculoskeletal: Cervical back: Normal range of motion and neck supple. Neurological: General: No focal deficit present. Mental Status: She is alert. Psychiatric: Behavior: Behavior normal. Problem List Items Addressed This Visit Facial swelling - Primary Mild generalized facial swelling. No angioedema. No sign of anaphylaxis. Discussed monitoring symptoms closely and return if any symptoms of anaphylaxis reaction occur. Likely due to mild allergic reaction versus underlying autoimmune component. -Ordered SALUD and DNA Antibody screenings. Relevant Orders DNA (ds) Antibody SALUD Screen,IFA, with Reflex to Titer and Pattern Rash Face and neck rash. Unknown etiology. Appearance similar to contact dermatitis. No sign of anaphylaxis. Discussed monitoring symptoms closely and return if any symptoms of anaphylaxis reaction occur.Likely due to mild allergic reaction versus underlying autoimmune component. -Ordered SALUD and DNA Antibody screenings. Relevant Orders DNA (ds) Antibody SALUD Screen,IFA, with Reflex to Titer and Pattern -No evidence of acute disease process. Suspect possible allergies, but also possible underlying possible autoimmune component. Symptoms mild. -Ordered labs. -ER precautions discussed. -Seek medical attention for worsening symptoms. I, Kameron Acuna, am serving as a scribe to document services personally performed by Dr. Kuo, based on the patient's response to questions by provider and providers statements to me. documented in this encounter Miscellaneous Notes * Assessment & Plan Note - Kameron Acuna - 11/23/2024 10:27 AM EDTAssociated Problem(s): Rash Face and neck rash. Unknown etiology. Appearance similar to contact dermatitis. No sign of anaphylaxis. Discussed monitoring symptoms closely and return if any symptoms of anaphylaxis reaction occur.Likely due to mild allergic reaction versus underlying autoimmune component. -Ordered SALUD and DNA Antibody screenings. * Assessment & Plan Note - Kameron Acuna - 11/23/2024 10:26 AM EDTAssociated Problem(s): Facial swelling Mild generalized facial swelling. No angioedema. No sign of anaphylaxis. Discussed monitoring symptoms closely and return if any symptoms of anaphylaxis reaction occur. Likely due to mild allergic reaction versus underlying autoimmune component. -Ordered SALUD and DNA Antibody screenings. documented in this encounter Plan of Treatment Upcoming Encounters Date Type Department Care Team (Late st Contact Info) Description 12/07/2024 10:30 AM EDT Office Visit [facility] [address] [place] [address] Estrella Espinal [address] [place] [address] 12/26/2024 9:45 AM EDT Office Visit [facility] [address] [place] [address] Scarlett Perez MD [address] [place], [place] [phone] Scheduled Orders Name Type Priority Associated Diagnoses Orde r Schedule DNA (ds) Antibody Lab Routine Facial swelling Rash Expected: 11/23/2024 (Approximate), Expires: 11/23/2025 SALUD Screen,IFA, with Reflex to Titer and Pattern Lab Routine Facial swelling Rash Expected: 11/23/2024 (Approximate), Expires: 11/23/2025 documented as of this encounter Visit Diagnoses Diagnosis Facial swelling- Primary Swelling, mass, or lump in head and neck Rash Rash and other nonspecific skin eruption documented in this encounter
--- OUTSIDE RECORDS SUMMARY | 2024-11-23 11:56 | XMS_ITS | Clinical Summary ---
Author Organization [email or web address] Address [address] [place] [address] Care Team Providers Care Care Nurse Rn Name Role Phone Unavailable Primary Care Provider Unavailabl e Allergies Active Allergy Reactions Criticality Noted Date Comments Fish-Derived Products 02/25/2024 Penicillin G 09/18/2024 Medications levothyroxine (Synthroid) 100 MCG tabletIndications :H/O thyroidectomy Take 1 tablet (100 mcg) by mouth before breakfast. 90 tablet 3 5 09/28/19 26 Active acetaminophen (Tylenol) 500 MG tablet Take 1 tablet (500 mg) by mouth every 6 (six) hours if needed for mild pain for up to 20 doses. 20 tablet 5 Active chlorhexidine (Peridex) 0.12 % solution Swish 15 mL morning and night for 1 minute. Spit, do not swallow. Do not eat or drink for 30 minutes following use. 473 mL 5 Active cetirizine (ZyrTEC) 10 MG tabletIndications :Seasonal allergies TAKE 1 TABLET BY MOUTH ONCE DAILY 90 tablet 5 Active chlorhexidine (Peridex) 0.12 % solution Swish 15 mL morning and night for 1 minute. Spit, do not swallow. Do not eat or drink for 30 minutes following use. 473 mL 5 Active acetaminophen (Tylenol) 500 MG tablet Take 1 tablet (500 mg) by mouth every 6 (six) hours if needed for mild pain for up to 20 doses. 20 tablet 5 Active ibuprofen 600 MG tablet Take 1 tablet (600 mg) by mouth every 6 (six) hours if needed for mild pain for up to 20 doses. 20 tablet Active predniSONE (Deltasone) 20 MG tablet 2 tabs po daily for 5 days 10 tablet Active clindamycin (Cleocin) 300 MG capsule Take 1 capsule (300 mg) by mouth 4 times daily for 7 days. 28 capsule 5 10/28/19 25 Active Problems Problem Noted Date Diagnosed Date Facial swelling 11/23/2024 Assessment & Plan (11/23/2024 10:26 AM EDT): Mild generalized facial swelling. No angioedema. No sign of anaphylaxis. Discussed monitoring symptoms closely and return if any symptoms of anaphylaxis reaction occur. Likely due to mild allergic reaction versus underlying autoimmune component. -Ordered SALUD and DNA Antibody screenings. Rash 11/23/2024 Assessment & Plan (11/23/2024 10:27 AM EDT): Face and neck rash. Unknown etiology. Appearance similar to contact dermatitis. No sign of anaphylaxis. Discussed monitoring symptoms closely and return if any symptoms of anaphylaxis reaction occur. Likely due to mild allergic reaction versus underlying autoimmune component. -Ordered SALUD and DNA Antibody screenings. Prediabetes 02/28/2024 Assessment & Plan (09/27/2024 4:28 PM EDT): A1C 5.7 Seasonal allergies 02/28/2024 Mixed hyperlipidemia 02/28/2024 H/O thyroidectomy 02/28/2024 Assessment & Plan (09/27/2024 4:28 PM EDT): Over 15 years ago Maintained on stable dose of 100mcg Synthroid daily Resolved Problems Problem Noted Date Diagnosed Date Resolved Date Facial rash 11/23/2024 11/23/2024 Encounters Date Type Department Care Team Description 11/23/2024 9:40 AM EDT Office Visit [facility] [address] [place], [place] [phone] Carmen Lombardi MD Facial swelling (Primary Dx); Rash 11/23/2024 Travel 10/20/2024 11:00 AM EDT Office Visit [facility] [address] [place], [place] [phone] Estrella Espinal 10/18/2024 Refill [facility] [address] [place] [phone] Scarlett Perez MD Seasonal allergies 10/09/2024 11:00 AM EDT Office Visit [facility] [address] [place] [address] Hilton Espinalrandall 09/27/2024 Telephone [facility] [address] [place] [phone] Fermín Hernandez MD Medication Question 09/27/2024 Telephone [facility] [address] [place] [phone] Fermín Hernandez MD Med Refill 09/25/2024 1:40 PM EDT Office Visit [facility] [address] [phone] Scarlett Perez MD H/O thyroidectomy (Primary Dx); Mixed hyperlipidemia; Sore throat; Primary HSV infection of mouth; Encounter for screening mammogram for malignant neoplasm of breast; Prediabetes; Seasonal allergies; Impacted cerumen of right ear 09/18/2024 2:00 PM EST Office Visit [facility] [address] [place] [address] Hilton Espinalrandall 09/06/2024 11:00 AM EST Office Visit [facility] [address] [place] [address] Shelby Abraham from Last 3 Months Social [...] Description 12/07/2024 10:30 AM EDT Office Visit [facility] [address] [place] [address] Estrella Espinal [address] [place] [address] 12/26/2024 9:45 AM EDT Office Visit [facility] [address] [place] [address] Scarlett Perez MD [address] [place] [address] Health Maintenance Due Date Last Done Comments CT Colonography 1968 Colonoscopy 1968 Colorectal Cancer Screening 1968 Depression Screening 1968 FIT DNA/Cologuard 1968 FIT 1968 FOBT 1968 SDOH Screening 1968 Sigmoidoscopy 1968 Hepatitis C Screening 1986 DTaP/Tdap/Td Vaccines (1 - Tdap) 10/27/1987 Hepatitis B Vaccines (1 of 3 - 19+ 3-dose series) 10/27/1987 Pap Smear 1989 Cervical Cancer Screening 1998 HPV/Cotest 1998 Mammogram 2008 Pneumococcal Vaccine: 50+ Years (1 of 1 - PCV) 2018 Zoster Vaccines (1 of 2) 2018 COVID-19 Vaccine (2023-2 5 season) 2024 Dental Prophylaxis 03/07/2025 09/06/2024 Dental Oral Exam 04/22/2025 10/20/2024 Dental X-Ray: Bitewings 09/07/2025 09/06/2024 Alcohol/Substance Use Screening 09/25/2025 09/25/2024 Diabetes: Hemoglobin A1C 09/25/2025 025, 02/25/2024 Tobacco Screening 11/23/2025 11/23/2024 Dental X-Ray: Full Mouth 09/07/2027 09/06/2024 RSV Patients and Patients Aged 60 years or older (1 - [...] Procedure Name Priority Date/Time Associated Diagnosis Comments CASE PRESENTATION, DETAILED AND EXTENSIVE TREATMENT PLANNING Routine 10/20/2024 11:00 AM EDT PERIODIC ORAL EVALUATION - ESTABLISHED PATIENT Routine 10/20/2024 11:00 AM EDT 15 O COMPOSITE FILLING Routine 10/20/2024 12:00 AM EDT 16 O AMALGAM FILLING Routine 10/20/2024 12:00 AM EDT 14 O AMALGAM FILLING Routine 10/20/2024 12:00 AM EDT 13 O COMPOSITE FILLING Routine 10/20/2024 12:00 AM EDT 12 O COMPOSITE FILLING Routine 10/20/2024 12:00 AM EDT 31 O COMPOSITE FILLING Routine 10/20/2024 12:00 AM EDT 18 O COMPOSITE FILLING Routine 10/20/2024 12:00 AM EDT 19 ANETA COMPOSITE FILLING Routine 10/20/2024 12:00 AM EDT 2 O COMPOSITE FILLING Routine 10/20/2024 12:00 AM EDT 3 DO COMPOSITE FILLING Routine 10/20/2024 12:00 AM EDT CASE PRESENTATION, DETAILED AND EXTENSIVE TREATMENT PLANNING Routine 10/09/2024 11:00 AM EDT INTRAORAL - PERIAPICAL FIRST RADIOGRAPHIC IMAGE Routine 10/09/2024 11:00 AM EDT RE-EVAL - LIMITED, PROBLEM FOCUSED (EST PATIENT; NOT POST-OP VISIT) Routine 10/09/2024 11:00 AM EDT URINALYSIS, COMPLETE, WITH REFLEX TO CULTURE Routine 09/25/2024 2:13 PM EDT Mixed hyperlipidemia HEMOGLOBIN A1C Routine 09/25/2024 2:13 PM EDT Mixed hyperlipidemia LIPID PANEL, STANDARD Routine 09/25/2024 2:13 PM EDT Mixed hyperlipidemia TSH W/REFLEX TO FT4 Routine 09/25/2024 2 :13 PM EDT H/O thyroidectomy COMPREHENSIVE METABOLIC PANEL Routine 09/25/2024 2:13 PM EDT Mixed hyperlipidemia CASE PRESENTATION, DETAILED AND EXTENSIVE TREATMENT PLANNING [...] (09/25/2024 2:13 PM EDT) Color Urine Yellow [facility] Appearance Urine Clear [facility] PH 6.5 5.0 - 9.0 [facility] Glucose Urine UA Negative Negative mg/dL [facility] Urine Blood Negative Negative [facility] Specific Gardner - Urine 1.015 1.005 - 1.025 [facility] Urine Protein Negative Neg-Trace mg/dL [facility] Urine Ketones Negative Negative mg/dL [facility] Nitrite Urine Negative Negative [facility] Leukocyte Esterase Urine Negative Negative [facility] RBC Urine 0-2 0 - 2 /HPF [facility] Urine WBC 0-5 0 - 5 /HPF [facility] Urine Squamous Epithelial Cell 6-10 0 - 2 /HPF [facility] Urine Bacteria None Seen None Seen [facility] Hyaline Casts, Urine 0-2 0 - 2 /LPF [facility] Urine 09/25/2024 2:13 PM EDT 09/25/2024 3:58 PM EDT Narrative [facility] - 09/25/2024 4:07 PM EDT Urine, Clean Catch Scarlett Perez MD LAB URINE ORDERABLES Final Res ult Performing Organization Address City/[facility] Co de Phone Number [facility] [address] [place] [phone] * TSH W/Reflex to FT4 (09/25/2024 2:13 PM EDT) TSH reflex Free T4 1.73 0.32 - 4.0 uIU/mL [facility] Blood Venous blood specimen / Unknown 09/25/2024 2:13 PM EDT 09/25/2024 4:07 PM EDT Scarlett Perez MD LAB BLOOD ORDERABLES Final Res ult Performing Organization Address [facility] Co de Phone Number [facility] [address] [place] [address] [phone] * Hemoglobin A1c (09/25/2024 2:13 PM EDT) Hemoglobin A1c 5.7 <6.0 % [facility] Comment:Hemoglobin A1C Refer ence Range Adults: 4.8 - 6.0 % Non diabetic: < 6.0 % Goal: < 7.0 %Additional Action Suggested: > 8.0 %Note: Hemoglobin A1c results are invalid for patients with abnormal amounts of HbF. Blood transfusions may impact the HbA1c concentration in the patient sample. Estimated Average Glucose 117 mg/dL [facility] Comment:eAG = Estimated ave rage glucose which is %A1C expressed asaverage glucose, using the formula of the S1N-[id number] Glucose study (ADAG), Diabetes Care, Vol.31,#8,Feb. 2007 Blood Venous blood specimen / Unknown 09/25/2024 2:13 PM EDT 09/25/2024 4:00 PM EDT us Scarlett Perez MD LAB BLOOD ORDERABLES Final Res ult [facility] [address] [place] [phone] * (ABNORMAL) Lipid Panel, Standard (09/25/2024 2:13 PM EDT) Triglycerides 176(H) <150 mg/dL [facility] Comment:Slight Lipemia.Glory able Triglyceride: less than 150 mg/dLBorderline High Triglyceride 150-199 mg/dLHigh Triglyceride: 200-499 mg/dLVery High Triglyceride: greater than or equal to 5OO mg/dL Cholesterol 149 <200 mg/dL [facility] Comment:Desirable Cholestero l: less than 200 mg/dLBorderline High Cholesterol: 200-239 mg/dLHigh Cholesterol: greater than 239 mg/dL LDL Cholesterol Calculated 67 <100 mg/dL [facility] Comment:Desirable LDL: less than 100 mg/dLNear Optimal/Above Optimal LDL: 110- 129 mg/dLBorderline High LDL: 130-159 mg/dLHigh LDL: 160-189 mg/dLVery High LDL: greater than or equal to 190 mg/dL HDL Cholesterol 47 >40 mg/dL [facility] Comment:Desirable HDL: great er than 40 mg/dL Note: This HDL assay may give artificially low results in patients with liver disease. Blood Venous blood specimen / Unknown 09/25/2024 2:13 PM EDT 09/25/2024 4:07 PM EDT Scarlett Perez MD LAB BLOOD ORDERABLES Final Res ult [facility] [address] [place] [address] [phone] * (ABNORMAL) Comprehensive Metabolic Panel (09/25/2024 2:13 PM EDT) Sodium 142 135 - 145 mmol/L [facility] Potassium 4.2 3.3 - 5.1 mmol/L [facility] Chloride 107 96 - 108 mmol/L [facility] Carbon Dioxide 26 22 - 29 mmol/L [facility] Anion Gap 13 12 - 20 [facility] Urea Nitrogen (BUN) 14 9 - 16 mg/dL [facility] Creatinine, Serum 0.76 0.5 - 1.4 mg/dL [facility] Estimated Glomerular Filt Rate >60 [facility] Comment:Chronic Kidney Disea se: Estimated GFR < 60 mL/min/[id number] Kidney Disease: Estimated GFR < 15 mL/min/1.73m2 Glucose 117(H) 60 - 115 mg/dL [facility] Calcium 8.6 8.4 - 10.2 mg/dL [facility] Bilirubin, Total 0.5 0.0 - 1.0 mg/dL [facility] Aspartate Amino Transferase 32(H) 5 - 31 U/L [facility] Alanine Aminotransferase 43(H) 0 - 31 U/L [facility] Total Protein 7.5 6.5 - 8.0 g/dL [facility] Albumin Level 3.8 3.5 - 5.0 g/dL [facility] Alkaline Phosphatase 103 39 - 117 U/L [facility] Blood Venous blood specimen / Unknown 09/25/2024 2:13 PM EDT 09/25/2024 4:07 PM EDT us Scarlett Perez MD LAB BLOOD ORDERABLES Final Res ult [facility] [address] [place] [phone] [phone] from Last 3 Months Insurance [place]MEDICAID[place] AD[place]
--- OUTSIDE RECORDS SUMMARY | 2024-11-23 11:56 | XMS_ITS | Encounter Summary ---
Author Organization [employer] Address [address] [place] [address] Care Team Providers Care Sanitarian Aide Name Role Phone Unavailable Primary Care Provider Unavailabl e Encounter Details Date Type Department Care Team (Latest Contact Info) Description 11/23/2024 Travel Social History Tobacco Use Types Packs/Day Years [...] AM EST documented as of this encounter Plan of Treatment Upcoming Encounters Date Type Department Care Team (Late st Contact Info) Description 12/07/2024 10:30 AM EDT Office Visit [facility] [address] [place] [address] Estrella Espinal [address] [place] [address] 12/26/2024 9:45 AM EDT Office Visit [facility] [address] [place] [address] Scarlett Perez MD [address] [place] [address] documented as of this encounter Visit Diagnoses Not on filedocumented in this encounter
--- OUTSIDE RECORDS SUMMARY | 2024-11-23 11:56 | XMS_ITS | Clinical Summary ---
Author Organization [facility] Address [address] [place] [address] Care Team Providers Care Ceramic Tiler Name Role Phone Robin Arriola NP Primary Care Provider [phone] Source Comments PLEASE NOTE, if this patient [...] sprayIndications:S easonal allergies,Need for vaccination Place 1 [place] in both nostrils once daily for 30 [...] H/O thyroidectomy 02/28/2024 Seasonal allergies 02/28/2024 Immunizations Immunization Administration Dates Next Due Influenza (FLUBLOK),recombin ant,injectable,preservative [...] 2013 Imm-Zoster, Recombinant (1 of 2) 2018 [id number]-73 ( season) 2024 Alcohol and Drug Screen 07/19/2024 04/18/2024 Depression Monitoring 07/19/2024 04/18/2024 Diabetes Screening 02/24/2025 02/25/2024, 02/25/2024 Tobacco Screening 02/24/2025 02/25/2024 Anxiety Screening 04/18/2025 04/18/2024 Hypertension Screening (#1) 04/18/2025 TSH Monitoring 04/19/2025 [...] TO FT4 1.39 0.40 - 4.50 mIU/L [employer] Comment: ?Reference Range ?> or = 20 Years ??0.40-4.50 ? Ranges ?First trimester ?0.26-2.66 ?Second trimester ?? 0.55-2.73 ?Third trimester ?0.43-2.91 Blood Blood / Unknown 04/19/2024 1 0:00 AM EDT 04/19/2024 10:01 AM EDT Narrative [employer] - 04/20/2024 6:34 AM EDT FASTING:NO us Trevon Ramirez VP & GENERAL COUNSEL LAB - BLOOD DRAW Final Resul t [employer] [address] [address], [facility] [address] [address] * HIV 1/2 AG & AB W/RFLX (4TH GEN) (02/25/2024 10:05 AM EDT) HIV AG/AB, 4TH GEN NON-REAC TIVE NON-REAC TIVE [employer] [facility] [facility] Comment: HIV-1 antigen and HIV-1/HIV-2 antibodies were [...] ?? For additional information please refer to http://education.Mofibo/faq/VTA619 (This link is being provided for informational/ educational purposes only.) The performance of this assay has not been clinically validated in patients less than 2 years old. Blood Blood / Unknown 02/25/2024 1 0:05 AM EDT 02/25/2024 10:05 AM EDT Narrative [employer] - 02/26/2024 8:37 AM EDT FASTING:YES us Laura Mejia PA-C LAB - BLOOD DRAW Final Resul t [facility] [address] [address], [facility] [address] [place] [address] * (ABNORMAL) HGA1C W/EAG (02/25/2024 10:05 AM EDT) HEMOGLOBIN A1C 6.0(H) <5.7 % of total Hgb [employer] [facility] Comment: For someone without known diabetes, a [...] diabetes for children. EAG (MG/DL) 126 mg/dL [facility] EAG (MMOL/L) 7.0 mmol/L [facility] Blood Blood / Unknown 02/25/2024 1 0:05 AM EDT 02/25/2024 10:05 AM EDT Narrative [employer] [facility] - 02/26/2024 8:37 AM EDT FASTING:YES Laura Mejia PA-C LAB - BLOOD DRAW Edited Resu lt - Final [facility] [address] [address], [facility] [address] [address] * ACUTE HEPATITIS PANEL W/RFLX (02/25/2024 10:05 AM EDT) HEPATITIS A IGM ANTIBODY NON-REACT ELLYN NON-REACT ELLYN [facility] COMMENT [facility] HEPATITIS B SURFACE ANTIGEN NON-REACT ELLYN NON-REACT ELLYN [facility] COMMENT [facility] HEPATITIS B CORE IGM ANTIBODY NON-REACT ELLYN NON-REACT ELLYN [facility] COMMENT [facility] HEPATITIS C ANTIBODY NON-REACT ELLYN NON-REACT ELLYN [facility] Comment: HCV antibody was non-reactive. There is no laboratory evidence of HCV infection. In most cases, no further action is required. However, if recent HCV exposure is suspected, a test for HCV RNA (test code 14469) is suggested. For additional information please refer to http://education.Kast.Thin Film Electronics ASA/faq/HGH36a9 (This link is being provided for informational/ educational purposes only.) Blood Blood / Unknown 02/25/2024 1 0:05 AM EDT 02/25/2024 10:05 AM EDT Narrative [employer] [facility] - 02/26/2024 8:37 AM EDT FASTING:YES For additional information, please refer to http://JFDI.Asia.Mofibo/faq/RTU318 (This link is being provided for informational/ educational purposes only.) For additional information, please refer to http://RegistryLove/faq/SAG543 (This link is being provided for informational/ educational purposes only.) For additional information, please refer to http://JFDI.Asia.Mofibo/faq/PXH795 (This link is being provided for informational/ educational purposes only.) Laura Mejia PA-C LAB - BLOOD DRAW Final Resul t [employer] [address] [place] [address], [facility] [address] [address] * (ABNORMAL) LIPIDS W RFLX TO DIRECT LDL (02/25/2024 10:05 AM EDT) CHOLESTEROL, TOTAL 242(H) <200 mg/dL [employer] [facility] HDL CHOLESTEROL 71 > OR = 50 mg/dL [employer] TRIGLYCERIDES 140 <150 mg/dL [employer] LDL-CHOLESTEROL 145(H) 99 mg/dL (calc) [employer] Comment: Reference range: <100 Desirable range <100 mg/dL for primary prevention; ?? <70 mg/dL for patients with CHD or diabetic patients with > or = 2 CHD risk factors. LDL-C is now calculated using the Velma calculation, which is a validated novel method providing better accuracy than the Friedewald equation in the estimation of LDL-C. Rosas GARCIA et al. TRUMAN. 2013;310(19): 3001-0040 (http://JFDI.Asia.GigSocial/faq/CUC692) CHOL/HDLC RATIO 3.4 <5.0 (calc) [employer] NON-HDL CHOLESTEROL 171(H) <130 mg/dL (calc) [employer] Comment: For patients with diabetes plus 1 major ASCVD risk factor, treating to a non-HDL-C goal of <100 mg/dL (LDL-C of <70 mg/dL) is considered a therapeutic option. Blood Blood / Unknown 02/25/2024 1 0:05 AM EDT 02/25/2024 10:05 AM EDT Narrative [facility] - 02/26/2024 8:37 AM EDT FASTING:YES us Laura Mejia PA-C LAB - BLOOD DRAW Final Resul t [facility] [address] [address], [facility] [address] [place] [address] from Last 3 Months or Most Recently Relevant to Health Maintenance Insurance [place] MEDICAID HEALTH SAFETY NET Care Teams Ceramic Tiler Relationship Specialty Start Date End Date Robin Arriola NP [address] [place] [address] PCP - General Family Medicine, FINNISH RUBBER 05/11/24
--- OUTSIDE RECORDS SUMMARY | 2024-11-23 11:56 | XMS_ITS | Encounter Summary ---
Author Organization [employer] Address [address] [facility] 7t [place] [address] Care Team Providers Care K 12 School Professional Name Role Phone Unavailable Primary Care Provider Unavailabl e Reason for Visit * Reason Onset Date Comments Med Refill 09/27/2024 Encounter Details Date Type Department Care Team ([facility] st Contact Info) Description 09/27/2024 Telephone [facility] MEDICINE [address] [place] [id number] Fermín Hernandez MD [address] [place] [address] Med Refill Social History Tobacco Use Types Packs/Day Years [...] AM EST documented as of this encounter Miscellaneous Notes * Telephone Encounter - Radames Welch - 09/27/2024 11:58 AM EDT TC from pt requesting medication refill. Medications needing refill : levothyroxine (Synthroid, Levoxyl) 100 MCG tablet To be sent to: [facility] - [place], [place] - [address] [facility] documented in this encounter Plan of Treatment Upcoming Encounters Date Type Department Care Team ([facility] st Contact Info) Description 12/07/2024 10:30 AM EDT Office Visit [facility] CHC ADULT DENTAL [address] [place] [address] Estrella Espinal [address] [place] [address] 12/26/2024 9:45 AM EDT Office Visit [facility] MEDICINE [address] [place] [address] Scarlett Perez MD [address] [place] [address] documented as of this encounter Visit Diagnoses Not on filedocumented in this encounter
[2024-11-27 11:14] LABS: Anti Nuclear Antibody Screen NEGATIVE (NEGATIVE)
[2024-11-30 07:08] LABS: Anti DNA DS Antibody <1 IU/mL
== END 2024-11-23 10:34 | disposition home or self-care (01) ==
LOC: HO.HHCL 10:33
PROVIDERS: Visit Provider Family Medicine
DX: R22.0 Localized swelling, mass and lump, head (principal); R21 Rash and other nonspecific skin eruption
CPT/HCPCS: 36415; 86038; 86225

== ENCOUNTER 2025-02-11 12:27 | Outpatient (REF) | payer MEDICAID, OTHER, SELFPAY ==
--- OUTSIDE RECORDS SUMMARY | 2025-02-12 13:19 | XMS_ITS | Patient Health Record ---
Author Organization [facility] Address [address] [place], [place] [id number] Care Team Providers Care Integrated Marketing Intern Name Role Phone MELVIN STORY Primary Care Provider Ruperto Hamilton Unavailable Unavailable Allergies No Known Allergies Reason For Referral No Information Medications Medication SIG (Take, Route, Frequency, Duration) Notes Start Date End Date Status Claritin 10 MG 1 tablet Orally Once a day Active Azithromycin 250 MG as directed Orally Active Clindamycin HCl 300 MG 2 capsules Orally every 8 hrs Active Colace 100 MG 1 capsule Orally Twi ce a day; Duration: 30 day(s) 03/28/2022 Active Levothyroxine Sodium 25 MCG 1 tablet in the morning on an empty stomach Orally Once a day Active Docusate Sodium 100 MG 1 tablet as neede d Orally Once a day Active Atorvastatin Calcium 10 MG 1 tablet Oral ly Once a day Active Social History Tobacco Use: Social History Observation Description Date Details (start date - stop date) Never Smoker NA - NA Tobacco Use/Smoking Question Answer Notes Are you a nonsmoker Alcohol Screen Question Answer Notes Did you have a drink contain ing alcohol in the past year? Yes How often did you have a dri nk containing alcohol in the past year? Monthly or less (1 point) Points 1 Interpretation Negative Problems Problem Type SNOMED Code ICD Code Onset Dates Problem Status W/U Status Risk Notes Problem Chronic idiopathic constipation (00849278) Chronic idiopathic constipation (K59.04) Active confirmed Plan Of Treatment No Information Insurance Providers Payer Name Payer Address Payer Phone Subscriber Number Group Number Insured Name Patient Relationship to Insured Coverage Start Date Coverage End Date [facility] [address] [place] [address] [id number] Bonnie Jean Self - patient is the insured MEDICAID [address] [place] [address] [id number] Bonnie Jean Self - patient is the insured Medical (General) History Medical History History ICD Code hypothyroidism Surgical History Surgery Date(Month/Year) thyroidectomy
--- OUTSIDE RECORDS SUMMARY | 2025-02-12 13:19 | XMS_ITS | Clinical Summary ---
Author Organization [facility] Address [address] [place] [address] Care Team Providers Care Banquet Coordinator Name Role Phone Robin Arriola NP Primary Care Provider [phone] Source Comments PLEASE NOTE, if this patient [...] sprayIndications:S easonal allergies,Need for vaccination Place [address] [place] in both nostrils once daily for 30 [...] 66 04/18/2024 1:16 PM EDT Temperature 36.9 C (98.5 F) 02/25/2024 9:30 AM EDT Respiratory Rate 16 04/18/2024 1:16 PM EDT [...] 2013 Fecal DNA 2013 Flexible Sigmoidoscopy 2013 Imm-Pneumococcal 50+ (1 of 1 - PCV) 2018 Imm-Zoster, Recombinant (1 of 2) 2018 [id number] (1 - 2023- season) 2024 Alcohol and Drug Screen 07/19/2024 04/18/2024 Depression Monitoring 07/19/2024 04/18/2024 Diabetes Screening 02/24/2025 02/25/2024, 02/25/2024 Tobacco Screening 02/24/2025 02/25/2024 Imm-Influenza (#1) 2025 04/18/2024 Anxiety Screening 04/18/2025 04/18/2024 Hypertension Screening (#1) 04/18/2025 TSH Monitoring 04/19/2025 04/19/2024, 02/25/2024 Lipid Screening 02/24/2027 02/25/2024 HIV Screening Completed 02/25/2024 Hepatitis C Screening Completed 02/25/2024 Procedures Procedure Name Priority Date/Time Associated Diagnosis [...] TO FT4 1.39 0.40 - 4.50 mIU/L [employer] [facility] Comment: Reference Range > or = 20 Years 0.40-4.50 Ranges First trimester 0.26-2.66 Second trimester 0.55-2.73 Third trimester 0.43-2.91 Blood Blood / Unknown 04/19/2024 1 0:00 AM EDT 04/19/2024 10:01 AM EDT Narrative [employer] [facility] - 04/20/2024 6:34 AM EDT FASTING:NO us Trevon Ramirez CLERICAL OFFICE LAB - BLOOD DRAW Final Resul t [employer] [address] [address], [employer] [address] [address] * HIV 1/2 AG & AB W/RFLX (4TH GEN) (02/25/2024 10:05 AM EDT) Pathologist [facility] HIV AG/AB, 4TH GEN NON-REAC TIVE NON-REAC TIVE [employer] Comment: HIV-1 antigen and HIV-1/HIV-2 antibodies were not detected. There is no laboratory evidence of HIV infection. PLEASE NOTE: This information has been disclosed to you from records whose confidentiality may be protected by state law. If your state requires such protection, then the state law prohibits you from making any further disclosure of the information without the specific written consent of the person to whom it pertains, or as otherwise permitted by law. A general authorization for the release of medical or other information is NOT sufficient for this purpose. For additional information please refer to http://education.PerTrac Financial Solutions/faq/ZLA443 (This link is being provided for informational/ educational purposes only.) The performance of this assay has not been clinically validated in patients less than 2 years old. Blood Blood / Unknown 02/25/2024 1 0:05 AM EDT 02/25/2024 10:05 AM EDT Narrative [employer] - 02/26/2024 8:37 AM EDT FASTING:YES us Laura Mejia PA-C LAB - BLOOD DRAW Final Resul t [employer] [address] [place] [address], [employer] [address] [place] [phone] * (ABNORMAL) HGA1C W/EAG (02/25/2024 10:05 AM EDT) Pathologist [facility] HEMOGLOBIN A1C 6.0(H) <5.7 % of total Hgb [employer] Comment: For someone without known diabetes, a [...] diabetes for children. EAG (MG/DL) 126 mg/dL [employer] [facility] EAG (MMOL/L) 7.0 mmol/L [employer] [facility] Blood Blood / Unknown 02/25/2024 1 0:05 AM EDT 02/25/2024 10:05 AM EDT Narrative [facility] - 02/26/2024 8:37 AM EDT FASTING:YES Laura Mejia PA-C LAB - BLOOD DRAW Edited Resu lt - Final [employer] [facility] [address] [address], [employer] [facility] [address] [place] [address] * HEPATITIS PANEL W/RFLX (02/25/2024 10:05 AM EDT) HEPATITIS A IGM ANTIBODY NON-REACT ELLYN NON-REACT ELLYN [employer] [facility] COMMENT [employer] [facility] HEPATITIS B SURFACE ANTIGEN NON-REACT ELLYN NON-REACT ELLYN [employer] [facility] COMMENT [employer] [facility] HEPATITIS B CORE IGM ANTIBODY NON-REACT ELLYN NON-REACT ELLYN [employer] [facility] COMMENT [employer] [facility] HEPATITIS C ANTIBODY NON-REACT ELLYN NON-REACT ELLYN [employer] [facility] Comment: HCV antibody was non-reactive. There is no laboratory evidence of HCV infection. In most cases, no further action is required. However, if recent HCV exposure is suspected, a test for HCV RNA (test code 37897) is suggested. For additional information please refer to http://M-SIX.[employer]/faq/DPL12v4 (This link is being provided for informational/ educational purposes only.) Blood Blood / Unknown 02/25/2024 1 0:05 AM EDT 02/25/2024 10:05 AM EDT Narrative [facility] - 02/26/2024 8:37 AM EDT FASTING:YES For additional information, please refer to http://Kuros Biosurgery/faq/ILL639 (This link is being provided for informational/ educational purposes only.) For additional information, please refer to http://M-SIX.[employer]/faq/HPM448 (This link is being provided for informational/ educational purposes only.) For additional information, please refer to http://M-SIX.[employer]/faq/CIH360 (This link is being provided for informational/ educational purposes only.) Laura Mejia PADoris LAB - BLOOD DRAW Final Resul t [employer] [address] [address], [employer] [facility] [address] [place] [address] * (ABNORMAL) LIPIDS W RFLX TO DIRECT LDL (02/25/2024 10:05 AM EDT) CHOLESTEROL, TOTAL 242(H) <200 mg/dL [employer] [facility] HDL CHOLESTEROL 71 > OR = 50 mg/dL [employer] [facility] TRIGLYCERIDES 140 <150 mg/dL [employer] [facility] LDL-CHOLESTEROL 145(H) 99 mg/dL (calc) [employer] [facility] Comment: Reference range: <100 Desirable range <100 mg/dL for primary prevention; <70 mg/dL for patients with CHD or diabetic patients with > or = 2 CHD risk factors. LDL-C is now calculated using the Rosas-Ganga calculation, which is a validated novel method providing better accuracy than the Friedewald equation in the estimation of LDL-C. Rosas GARCIA et al. TRUMAN. 2013;310(19): 9009-7499 (http://education.Quewey.Clip/faq/PYX649) CHOL/HDLC RATIO 3.4 <5.0 (calc) [employer] [facility] NON-HDL CHOLESTEROL 171(H) <130 mg/dL (calc) [employer] [facility] Comment: For patients with diabetes plus 1 major ASCVD risk factor, treating to a non-HDL-C goal of <100 mg/dL (LDL-C of <70 mg/dL) is considered a therapeutic option. Blood Blood / Unknown 02/25/2024 1 0:05 AM EDT 02/25/2024 10:05 AM EDT Narrative [employer] [facility] - 02/26/2024 8:37 AM EDT FASTING:YES us Laura Mejia PA-C LAB - BLOOD DRAW Final Resul t [facility] [address] [address], [facility] [address] [place] [address] from Last 3 Months or Most Recently Relevant to Health Maintenance Insurance [place] MED[place] HE[place] SAF[place]Y NET Care Teams Banquet Coordinator Relationship Specialty Start Date End Date Robin Arriola NP [address] [place] [address] PCP - General Family Medicine, RUBBER GOODS INSPECTOR 05/11/24
--- OUTSIDE RECORDS SUMMARY | 2025-02-12 13:19 | XMS_ITS | Encounter Summary ---
Author Organization [employer] Address [address] 7[address] [place] [address] Care Team Providers Care Clinical Manager Home Care Name Role Phone Scarlett Perez MD Primary Care Provider [phone] Reason for Visit * Reason Onset Date Comments Nurse Triage 02/08/2025 Encounter Details Date Type Department Care Team ([facility] st Contact Info) Description 02/08/2025 Telephone [facility] MEDICINE [address] [place], [place] [phone] Scarlett Perez MD [address] [place] [address] Nurse Triage Social History Tobacco Use Types Packs/Day Years Used Date Smoking Tobacco: Never Passive Smoke Exposure: Never Smokeless Tobacco: Never Alcohol Use Standard [...] more drinks on one occasion? 0 09/25/2024 Depression Answer Date Recorded Patient Health Questionnaire-9 Score 24 12/26/2024 Patient Health Questionnaire-9 Score 24 12/26/2024 Last PHQ-9: Questionnaire Data Not on file 0 12/26/2024 Housing Stability Answer Date Recorded What is your housing situation today? I have arsh wang 01/08/[address] you li ve. Do you have problems with any of the following? None of the above 01/08/2025 Food Insecurity Answer Date Recorded Within the past 12 months, y ou worried that your food would run out before you got money to buy more: Never True 01/08/2025 Within the past 12 months,th e food you bought just didn't last and you didn't have enough money to get more: Never True Transportation Answer Date Recorded In the past 12 months, has l ack of transportation kept you from medical appts, meetings, work or from getting things needed for daily living? No 01/08/2025 Utilities Answer Date Recorded In the past 12 months, has t he [employer], gas, oil or water cafegive threatened to shut off services in your home? No 01/08/2025 Depression Answer Date Recorded Patient Health Questionnaire-2 Score 5 12/26/2024 Internet Access Answer Date Recorded Internet Access Q1 No 01/08/2025 Internet Access Q2 I do not want or need it 12/18 Comments Unknown Sex and Gender Information Value Date Recorded Sex Assigned at Female 08/15/2024 11:45 AM EST Legal Sex Female 11:44 AM EST Gender Identity Female 08/15/2024 11:45 AM EST Sexual Orientation Straight 08/15/2024 11 :45 AM EST documented as of this encounter Miscellaneous Notes * Telephone Encounter - Asha Anderson RN - 02/08/2025 11:19 AM EDT Called pt. Back via [facility] ld teacher [phone] Ben. Pt. States that she went to [facility] ED x 5 days ago because she started to have some SOB. Pt had a CXR and it was negative. Pt. Denies any chest pain and states that she was told she has a stomach issue. Pt. States she is unsure of what stomach issues she may be having. Pt. States she has no problems with BM's or urinating. Pt states the pain was on her left side and she thought it was her heart but the ED Dr. Told her it is not her heart. Pt. States she is also having allergy sx. Pt. States that she has been taking her allergy medications but isstill having allergy sx. Pt. States that the ED Doctor told her she needs a referral to [facility] logist and also an plant etiologist. I will forward this message to clinical care coordinators to get [facility] ED note into pt chart and any imaging and labs. * Telephone Encounter - Bandar Morgan - 02/08/2025 11:17 AM EDT Tc from pt returning call regarding message prior. * Telephone Encounter - Asha Anderson RN - 02/08/2025 10:32 AM EDT Called pt. Via [facility] ld teacher [place] [phone]. No answer. Ingot Caster left message on pt. Voicemailto call back [facility] nurses at [phone]. Called alternate phone number [phone]. No answer ld teacher left message on pt. Voice mail tocall back [facility] nurses at [phone]. RE: Eye allergy. * Telephone Encounter - Bandar Morgan - 02/08/2025 10:26 AM EDT Symptom: Eye Allergy Outcome: Schedule an appointment to be seen within 3 days Reason: Caller denied all higher acuity questions Please contact pt at [phone]. (Croatian Speaker) documented in this encounter Plan of Treatment Upcoming Encounters Date Type Department Care Team (Late st Contact Info) Description 05/03/2025 10:30 AM EDT Office Visit [facility] OPTOMETRY [address] [place], [place] [phone] Serene Ellsworth, OD [address] [place] [address] documented as of this encounter Visit Diagnoses Not on filedocumented in this encounter Additional Health Concerns Assessment Noted Time PHQ-9 Depression Total Score: 24 025 9:25 AM EDT documented as of this encounter Care Teams Clinical Manager Home Care Relationship Specialty Start Date End Date Scarlett Perez MD [address] [place] [address] PCP - General Family Medicine 12/25/24 documented as of this encounter
== END 2025-02-11 12:28 | disposition home or self-care (01) ==
LOC: HO.HHCLNP 12:27
PROVIDERS: Visit Provider Family Medicine
DX: R10.84 Generalized abdominal pain (principal)
CPT/HCPCS: 87338

== ENCOUNTER 2025-02-22 10:14 | Outpatient (REF) | payer OTHER, SELFPAY ==
--- OUTSIDE RECORDS SUMMARY | 2025-02-22 10:44 | XMS_ITS | Clinical Summary ---
Author Organization [employer] Address [address] [facility] 7[address] [place] [address] Care Team Providers Care Residential Plumber Name Role Phone Scarlett Perez MD Primary Care Provider [phone] Allergies Active Allergy Reactions Criticality Noted Date Comments Fish-Derived Products 02/25/2024 Penicillin G 09/18/2024 Shellfish Allergy 12/26/2024 Medications * This document contains information received from the source organization and may not represent a complete record from that organization. levothyroxine (Synthroid) 100 MCG tabletIndication s:H/O thyroidectomy Take 1 tablet (100 mcg) by mouth before breakfast. 90 tablet 3 09/28/19 25 2025 Active acetaminophen (Tylenol) 500 MG tablet Take 1 tablet (500 mg) by mouth every 6 (six) hours if needed for mild pain for up to 20 doses. 20 tablet 10/10/19 25 Active chlorhexidine (Peridex) 0.12 % solution Swish 15 mL morning and night for 1 minute. Spit, do not swallow. Do not eat or drink for 30 minutes following use. 473 mL 10/10/19 25 Active Additional Information Patient not taking.Reported on 12/07/2024 cetirizine (ZyrTEC) 10 MG tabletIndication s:Seasonal allergies TAKE 1 TABLET BY MOUTH ONCE DAILY 90 tablet 10/19/19 25 Active chlorhexidine (Peridex) 0.12 % solution Swish 15 mL morning and night for 1 minute. Spit, do not swallow. Do not eat or drink for 30 minutes following use. 473 mL 10/21/19 25 Active acetaminophen (Tylenol) 500 MG tablet Take 1 tablet (500 mg) by mouth every 6 (six) hours if needed for mild pain for up to 20 doses. 20 tablet 10/21/19 25 Active ibuprofen 600 MG tablet Take 1 tablet (600 mg) by mouth every 6 (six) hours if needed for mild pain for up to 20 doses. 20 tablet 10/21/19 25 Active chlorhexidine (Peridex) 0.12 % solution Swish 15 mL morning and night for 1 minute. Spit, do not swallow. Do not eat or drink for 30 minutes following use. 473 mL 12/08/19 25 Active diphenhydrAMINE (BENADryl) 25 MG tabletIndication s:Rash,Seasonal allergies Take 1 tablet (25 mg) by mouth if needed at bedtime for itching or allergies. 30 tablet 1 12/28/19 25 Active predniSONE (Deltasone) 20 MG tabletIndication s:Facial swelling Take 1 tablet (20 mg) by mouth Once daily as needed (allergic reaction of skin swelling). 5 tablet 12/28/19 25 Active PARoxetine (Paxil) 10 MG tabletIndication s:Symptoms, such as flushing, sleeplessness, headache, lack of concentration, associated with the menopause Take 1 tablet (10 mg) by mouth in the morning. For menopause symtpoms 30 tablet 11 12/28/19 25 2025 Active azithromycin (Zithromax) 250 MG tablet Take 2 tabs day and then 1 tab daily 6 tablet 01/23/20 25 Active pseudoephedrine (Sudafed) 30 MG tablet Take 1 tablet (30 mg) by mouth every 4 (four) hours if needed for congestion for up to 10 days. 30 tablet 01/23/20 25 Active famotidine (Pepcid) 20 MG tabletIndication s:Gastritis, presence of bleeding unspecified, unspecified chronicity, unspecified gastritis type Take 1 tablet (20 mg) by mouth 2 times daily. 60 tablet 02/09/20 25 2025 Active Omeprazole 20 MG tablet delayed-releaseI ndications:Gastr oesophageal reflux disease without esophagitis Take 1 tablet (20 mg) by mouth before breakfast. 90 tablet 12/28/19 25 2024 Discontinued Active Problems Problem Noted Date Diagnosed Date Severe episode of recurrent major depressive disorder, without psychotic features 12/26/2024 MARIAH (generalized anxiety disorder) 12/26/2024 Facial swelling 11/23/2024 Assessment & Plan (11/23/2024 [...] Resolved Date Facial rash 11/23/2024 11/23/2024 Encounters * This document contains information received from the source organization and may not represent a complete record from that organization. Date Type Department Care Team Description 02/22/2025 9:40 AM EDT Office Visit [facility] [address] [place] [id number] Yuan Devine MD RUQ abdominal pain (Primary Dx) 02/22/2025 Travel 02/08/2025 4:00 PM EDT Office Visit [facility] [address] [place] [address] Carmen Lombardi MD Gastritis, presence of bleeding unspecified, unspecified chronicity, unspecified gastritis type (Primary Dx); Generalized abdominal pain; Colon cancer screening 02/08/2025 Travel 02/08/2025 Telephone [facility] [address] [place] [phone] Scarlett Perez MD Nurse Triage 01/22/2025 10:40 AM EDT Office Visit [facility] [address] [address] Amy Haynes MD Acute non-recurrent maxillary sinusitis (Primary Dx) 01/22/2025 Travel 01/05/[address] [address] Scarlett Perez MD Referral 12/26/2024 9:45 AM EDT Office Visit [address] [address] Scarlett Perez MD Gastroesophageal reflux disease without esophagitis (Primary Dx); Dietary counseling; Exercise counseling; Overweight; Inadequate housing utilities; Facial swelling; Rash; Seasonal allergies; Severe episode of recurrent major depressive disorder, without psychotic features (CMS/HCC); Symptoms, such as flushing, sleeplessness, headache, lack of concentration, associated with the menopause; MARIAH (generalized anxiety disorder) 12/26/2024 Travel 12/25/[address] [address] Niesha Au MD Chart Prep 12/18/2024 Patient Outreach [address] [address] Scarlett Perez MD 12/07/2024 10:30 AM EDT Office Visit [facility] [address] [place] [address] Estrella Espinal 11/23/2024 9:40 AM EDT Office Visit [facility] [address] [address] Carmen Lombardi MD Facial swelling (Primary Dx); Rash 11/23/2024 Travel from Last 3 Months Social History Tobacco Use Types Packs/Day Years Used Date Smoking Tobacco: Never Passive Smoke Exposure: Never Smokeless Tobacco: Never Tobacco Cessation:Counseling Given: [...] your housing situation today? I have arsh kathleen 01/08/[address] you li [...] the past 12 months, has t he electric, gas, oil or water company threatened to shut off services in your [...] Orientation Straight 08/15/2024 11 :45 AM EST Last Filed Vital Signs Vital Sign Reading Time Taken Comments Blood Pressure 121/78 02/22/2025 9:30 AM EDT Pulse 76 02/22/2025 9:30 AM EDT Temperature 36.9 C (98.4 F) 02/22/2025 9:30 AM EDT Respiratory Rate 18 02/22/2025 9:30 AM EDT Oxygen Saturation 99% 02/22/2025 9:30 AM EDT Inhaled Oxygen Concentration - - Weight 71.2 kg (157 lb) 02/22/2025 9:30 AM EDT Height 160 cm (5' 3 ) 01/22/2025 10:11 AM EDT Body Mass Index 27.81 01/22/2025 10:11 AM EDT Plan of Treatment Upcoming Encounters Date Type Department Care Team (Late st Contact Info) Description 05/03/2025 10:30 AM EDT Office Visit [facility] [address] [place], [place] [phone] Tarka, Serene, OD [address] [place] [address] Health Maintenance Due Date Last Done Comments CT Colonography 1968 Colonoscopy 1968 Colorectal Cancer Screening 1968 FIT DNA/Cologuard 1968 FIT 1968 FOBT 1968 Sigmoidoscopy 1968 Hepatitis C Screening 1986 DTaP/Tdap/Td Vaccines (1 - Tdap) 10/27/1987 Hepatitis B Vaccines (1 of 3 - 19+ 3-dose series) 10/27/1987 Pap Smear 1989 Cervical Cancer Screening 1998 HPV/Cotest 1998 Mammogram 2008 Pneumococcal Vaccine: 50+ Years (1 of 1 - PCV) 2018 Zoster Vaccines (1 of 2) 2018 COVID-19 Vaccine (1 - 2023-2 5 season) 2024 Dental Prophylaxis 03/07/2025 09/06/2024 Influenza Vaccine (#1) 2025 04/18/2024 Dental Oral Exam 04/22/2025 10/20/2024 Depression Monitoring 06/27/2025 12/26/2024 , 12/26/2024 Dental X-Ray: Bitewings 09/07/2025 09/06/2024 Diabetes: Hemoglobin A1C 09/25/2025 09/25/2024 Alcohol/Substance Use Screening 12/26/2025 12/26/2024 Disability Screening 12/26/2025 12/26/2024 SDOH Screening 12/26/2025 12/26/2024 Tobacco Screening 02/22/2026 02/22/2025 Dental X-Ray: Full Mouth 09/07/2027 09/06/2024 RSV Patients and Patients Aged 60 years or older (1 - 1-dose 75+ series) 10/27/2043 HIV Screening Completed 02/25/2024, 02/25/2024 HIB Vaccines Aged Out No longer eligi [...] patient's age to complete this topic Meningococcal B Vaccine Aged Out No l onger eligible based on patient's age to complete [...] Procedure Name Priority Date/Time Associated Diagnosis Comments HELICOBACTER PYLORI AG, EIA, STOOL Routine 02/11/2025 7:00 PM EDT Generalized abdominal pain POCT RAPID COVID ANTIGEN Routine 01/22/2025 1:52 PM EDT Acute non-recurrent maxillary sinusitis CASE PRESENTATION, DETAILED AND EXTENSIVE TREATMENT PLANNING Routine 12/07/2024 10:30 AM EDT 18 O RESIN-BASED COMPOSITE - 1 SURF, POSTERIOR Routine 12/07/2024 10:30 AM EDT SALUD SCREEN, IFA, W/REFL TITER AND PATTERN Routine 11/23/2024 10:35 AM EDT Facial swelling Rash DNA (DS) ANTIBODY Routine 11/23/2024 10: 35 AM EDT Facial swelling Rash PERIODIC ORAL EVALUATION - ESTABLISHED PATIENT Routine 10/20/2024 11:00 AM EDT HEMOGLOBIN A1C Routine 09/25/2024 2:13 PM EDT Mixed hyperlipidemia PROPHYLAXIS - ADULT Routine 09/06/2024 1 1:00 AM EST INTRAORAL - COMPLETE SERIES OF RADIOGRAPHIC IMAGES Routine 09/06/2024 11:00 AM EST from Last 3 Months or Most Recently Relevant to Health Maintenance Results * Helicobacter pylori??Antigen, EIA, Stool (02/11/2025 7:00 PM EDT) Pathologist [facility] H pylori Ag Stool SEE NOTE [facility] Comment:HELICOBACTER PYLORI AG, EIA, STOOL Micro Number: [id number] Test Status: Final Specimen Source: Stool Specimen Quality: Adequate H.pylori Ag: Not Detected Antimicrobials, proton pump inhibitors, and bismuth preparations inhibit H. pylori and ingestion up to two weeks prior to testing may cause false negative results. If clinically indicated the test should be repeated on a new specimen obtained two weeks after discontinuing treatment. Reference Range: Not DetectedTHIS TEST WAS PERFORMED AT:[employer] [address] [phone] TERRY MD Stool Rectal contents / Unknown 02/11/2025 7:00 PM EDT 02/12/2025 12:29 PM EDT Carmen Lombardi MD LAB BODY FLUIDS AND STOOLS ORDERABLES Final Result [facility] [address] [place] [phone] * POCT Rapid COVID Ag (01/22/2025 1:52 PM EDT) [facility] Rapid COVID Ag Negative Swab 01/22/2025 1:52 PM EDT Amy Haynes MD POINT OF CARE TEST ENTER/EDIT OR DERABLES Final Result * DNA (ds) Antibody (11/23/2024 10:35 AM EDT) [facility] Anti DNA DS Antibody <1 IU/mL [facility] Comment:IU/mL Interpretation < or = 4 Negative 5-9 Indeterminate > or = 10 PositiveTHIS TEST WAS PERFORMED AT:[employer] [address] [address]IGPXALEONEL TERRY MD Blood Venous blood specimen / Unknown 11/23/2024 10:35 AM EDT 11/23/2024 11:12 AM EDT Carmen Lombardi MD LAB BLOOD ORDERABLES Final Result Performing Organization Address City/[facility]/ZIP Co de Phone Number [facility] [address] [place] [address] [phone] * SALUD Screen,IFA, with Reflex to Titer and Pattern (11/23/2024 10:35 AM EDT) Anti Nuclear Antibody Screen NEGATIVE NEGATIVE [facility] Comment:SALUD IFA is a first l ine screen for detecting thepresence of up to approximately 150 autoantibodies invarious autoimmune diseases. A negative SALUD IFA resultsuggests an SALUD-associated autoimmune disease is notpresent at this time, but is not definitive. If thereis high clinical suspicion for Sjogren's syndrome,testing for anti-SS-A/Ro antibody should be considered.Anti-Rhoda-1 antibody should be considered for clinicallysuspected inflammatory myopathies.AC-0: NegativeInternational Consensus on SALUD Patterns(https://doi.org/10.1515/hkdy-0499-5255)For additional information, please refer tohttp://education.Ynsect/faq/QJJ014(This link is being provided for informational/educational purposes only.)THIS TEST WAS PERFORMED AT:[facility] [place] [phone] TERRY MD SALUD Titer TNP [facility] SALUD Pattern TNP [facility] SALUD TITER 2 (REF LAB) TNP [facility] SALUD Pattern 2 [facility] T[facility] 3 [facility] PATTERN 3 [facility] Blood Venous blood specimen / Unknown 11/23/2024 10:35 AM EDT 11/23/2024 11:12 AM EDT Carmen Lombardi MD LAB BLOOD ORDERABLES Final Result [facility] [address] [place] [address] [phone] * Hemoglobin A1c (09/25/2024 2:13 PM EDT) Hemoglobin A1c 5.7 <6.0 % [facility] Comment:Hemoglobin A1C Refer ence Range Adults: 4.8 - 6.0 % Non diabetic: < 6.0 % Goal: < 7.0 %Additional Action Suggested: > 8.0 %Note: Hemoglobin A1c results are invalid for patients with abnormal amounts of HbF. Blood transfusions may impact the HbA1c concentration in the patient sample. Estimated Average Glucose 117 mg/dL [facility] Comment:eAG = Estimated ave rage glucose which is %A1C expressed asaverage glucose, using the formula of the Q0N-HbkuzcoNixncva Glucose study (ADAG), Diabetes Care, Vol.31,#8,Feb. 2007 Blood Venous blood specimen / Unknown 09/25/2024 2:13 PM EDT 09/25/2024 4:00 PM EDT us Scarlett Perez MD LAB BLOOD ORDERABLES Final Res ult Performing Organization Address [facility]/ZIP Co de Phone Number [facility] [address] [place] [address] [phone] from Last 3 Months or Most Recently Relevant to Health Maintenance Insurance [facility] 2 HSN PARTIAL DENTAL - HSN FULL (MEDICAID) DENTAL-[facility] MEDICAID LIMITED ADULT Care Teams Residential Plumber Relationship Specialty Start Date End Date Scarlett Perez MD [address] [place] [phone] PCP - General Family Medicine 12/25/24
--- OUTSIDE RECORDS SUMMARY | 2025-02-22 10:45 | XMS_ITS | Patient Health Record ---
Author Organization [facility] Address [address] [place], [place] [id number] Care Team Providers Care Attorney At Law Name Role Phone MELVIN STORY Primary Care [...] Status Risk Notes Problem Chronic idiopathic constipation (73326087) Chronic idiopathic constipation (K59.04) Active confirmed Plan Of Treatment No Information Insurance Providers Payer Name Payer Address Payer Phone Subscriber Number Group Number Insured Name Patient Relationship to Insured Coverage Start Date Coverage End Date [facility] [address] [place] [address] [id number] Bonnie Jean Self - patient is the insured MEDICAID [address] [place] [address] [id number] Bonnie Jean Self - patient is the insured Medical (General) History Medical History History ICD Code hypothyroidism Surgical History Surgery Date(Month/Year) thyroidectomy
--- OUTSIDE RECORDS SUMMARY | 2025-02-22 10:45 | XMS_ITS | Clinical Summary ---
Author Organization [facility] Address [address] [place] [address] Care Team Providers Care Electrodynamicist Name Role Phone Robin Arriola NP Primary Care Provider [phone] Source Comments PLEASE NOTE, if this patient [...] sprayIndications:S easonal allergies,Need for vaccination Place 1 [place] in both nostrils once daily for 30 [...] 2018 Imm-Zoster, Recombinant (1 of 2) 2018 Dyc-QMDFW-95 (1 - 2023- season) 2024 Alcohol and [...] TO FT4 1.39 0.40 - 4.50 mIU/L [facility] Comment: Reference Range > or = 20 Years 0.40-4.50 Ranges First trimester 0.26-2.66 Second trimester 0.55-2.73 Third trimester 0.43-2.91 Blood Blood / Unknown 04/19/2024 1 0:00 AM EDT 04/19/2024 10:01 AM EDT Narrative [employer] [facility] - 04/20/2024 6:34 AM EDT FASTING:NO us Trevon Ramirez ANTHROPOLOGY LECTURER LAB - BLOOD DRAW Final Resul t [employer] [address] [address], [facility] [address] [address] * HIV 1/2 AG & AB W/RFLX (4TH GEN) (02/25/2024 10:05 AM EDT) Pathologist [facility] [place] HIV AG/AB, 4TH GEN NON-REAC TIVE NON-REAC TIVE [employer] Comment: HIV-1 antigen and HIV-1/HIV-2 antibodies were [...] purpose. For additional information please refer to http://education.[employer] Energy/faq/VAG293 (This link is being provided for informational/ educational purposes only.) The performance of this assay has not been clinically validated in patients less than 2 years old. Blood Blood / Unknown 02/25/2024 1 0:05 AM EDT 02/25/2024 10:05 AM EDT Narrative [employer] - 02/26/2024 8:37 AM EDT FASTING:YES us Laura Mejia PA-C LAB - BLOOD DRAW Final Resul t [employer] [address] [place] [phone], [employer] [facility] [address] [place] [phone] * (ABNORMAL) HGA1C W/EAG (02/25/2024 10:05 AM EDT) Pathologist [facility] [place] HEMOGLOBIN A1C 6.0(H) <5.7 % of total Hgb [facility] Comment: For someone without known diabetes, a [...] diabetes for children. EAG (MG/DL) 126 mg/dL [facility] EAG (MMOL/L) 7.0 mmol/L [facility] Blood Blood / Unknown 02/25/2024 1 0:05 AM EDT 02/25/2024 10:05 AM EDT Narrative [facility] - 02/26/2024 8:37 AM EDT FASTING:YES Laura Mejia PA-C LAB - BLOOD DRAW Edited Resu lt - Final [facility] [address] [address], [facility] [address] [place] [address] * HEPATITIS PANEL W/RFLX (02/25/2024 10:05 AM EDT) HEPATITIS A IGM ANTIBODY NON-REACT ELLYN NON-REACT ELLYN [facility] COMMENT [facility] HEPATITIS B SURFACE ANTIGEN NON-REACT ELLYN NON-REACT ELLYN [facility] COMMENT [facility] HEPATITIS B CORE IGM ANTIBODY NON-REACT ELLYN NON-REACT ELLYN [facility] COMMENT [facility] HEPATITIS C ANTIBODY NON-REACT ELLYN NON-REACT ELLYN [facility] Comment: HCV antibody was non-reactive. There is no laboratory evidence of HCV infection. In most cases, no further action is required. However, if recent HCV exposure is suspected, a test for HCV RNA (test code 00798) is suggested. For additional information please refer to http://[employer]/faq/FDI79s7 (This link is being provided for informational/ educational purposes only.) Blood Blood / Unknown 02/25/2024 1 0:05 AM EDT 02/25/2024 10:05 AM EDT Narrative [facility] - 02/26/2024 8:37 AM EDT FASTING:YES For additional information, please refer to http://R[employer] TV/faq/XHI378 (This link is being provided for informational/ educational purposes only.) For additional information, please refer to http://[employer]irc[employer]/faq/HLL447 (This link is being provided for informational/ educational purposes only.) For additional information, please refer to http://Aircrm.[employer]/faq/WUX767 (This link is being provided for informational/ educational purposes only.) Laura Mejia PADoris LAB - BLOOD DRAW Final Resul t [facility] [address] [address], [facility] [address] [place] [address] * (ABNORMAL) LIPIDS W RFLX TO DIRECT LDL (02/25/2024 10:05 AM EDT) CHOLESTEROL, TOTAL 242(H) <200 mg/dL [facility] HDL CHOLESTEROL 71 > OR = 50 mg/dL [facility] TRIGLYCERIDES 140 <150 mg/dL [facility] LDL-CHOLESTEROL 145(H) 99 mg/dL (calc) [facility] Comment: Reference range: <100 Desirable range <100 mg/dL for primary prevention; <70 mg/dL for patients with CHD or diabetic patients with > or = 2 CHD risk factors. LDL-C is now calculated using the Rosas-Ganga calculation, which is a validated novel method providing better accuracy than the Friedewald equation in the estimation of LDL-C. Rosas GARCIA et al. TRUMAN. 2013;310(19): 9219-5226 (http://education.netprice.com.CloudCar/faq/NAB173) CHOL/HDLC RATIO 3.4 <5.0 (calc) [facility] NON-HDL CHOLESTEROL 171(H) <130 mg/dL (calc) [employer] Comment: For patients with diabetes plus 1 major ASCVD risk factor, treating to a non-HDL-C goal of <100 mg/dL (LDL-C of <70 mg/dL) is considered a therapeutic option. Blood Blood / Unknown 02/25/2024 1 0:05 AM EDT 02/25/2024 10:05 AM EDT Narrative [employer] [facility] - 02/26/2024 8:37 AM EDT FASTING:YES us Laura Mejia PA-C LAB - BLOOD DRAW Final Resul t [facility] [address] [address], [facility] [address] [place] [address] from Last 3 Months or Most Recently Relevant to Health Maintenance Insurance [place] Care Teams Electrodynamicist Relationship Specialty Start Date End Date Robin Arriola NP [address] [place] [address] PCP - General Family Medicine, PIT SUPERVISOR 05/11/24
[2025-02-22 11:31] LABS: MANUAL DIFF FLAG NO
[2025-02-22 11:43] LABS: Hematocrit 41.2 % (37.0-47.0); Hemoglobin 13.7 g/dl (12.0-16.0); Imm Gran Abs Auto 0.02 X10*3/uL (0.00-0.03); Imm Gran Pct Auto 0.4 % (0.0-0.4); Lymphocytes Absolute Auto 2.0 X10*3/uL (1.2-4.9); Mean Corpuscular HGB Conc 33.3 g/dl (31.0-35.0); Mean Corpuscular Hemoglobin 28.1 pg (27.0-33.0); Mean Corpuscular Volume 84.6 fL (80.0-98.0); NRBC Abs Auto 0.000 X10*3/uL (0.0-0.012); NRBC Pct Auto 0.0 /100WBC (0.0-0.2); Platelet Count 371 X10*3/uL (160-400); Red Blood Count 4.87 X10*6/uL (4.20-5.50); White Blood Count 5.2 X10*3/uL (4.8-10.8)
[2025-02-22 11:51] LABS: Alanine Aminotransferase 22 U/L (0-31); Albumin Level 4.5 g/dL (3.5-5.0); Alkaline Phosphatase 85 U/L (39-117); Anion Gap 10 (12-20); Aspartate Amino Transferase 24 U/L (5-31); Blood Urea Nitrogen 13 mg/dL (9-16); Calcium 9.3 mg/dL (8.4-10.2); Carbon Dioxide 30 mmol/L (22-29); Chloride 105 mmol/L (96-108); Estimated Glomerular Filt Rate > 60; Potassium 4.0 mmol/L (3.3-5.1); Sodium 141 mmol/L (135-145); Total Protein 7.8 g/dL (6.5-8.0)
[2025-02-27 15:07] LABS: Immunoglobulin A 408 mg/dL (47-310)
== END 2025-02-22 10:15 | disposition home or self-care (01) ==
LOC: HO.HHCL 10:14
PROVIDERS: PCP Family Medicine; Visit Provider Family Medicine
DX: R10.11 Right upper quadrant pain (principal)
CPT/HCPCS: 36415; 80053; 82784; 85025; 85652; 86140; 86364

== ENCOUNTER 2025-04-24 11:59 | Outpatient (REF) | payer OTHER, SELFPAY ==
--- NOTE | ~2025-04-24 | XR_ITS ---
EXAMINATION: XR SHOULDER, LEFT CLINICAL INFORMATION: atraumatic left shoulder pain COMPARISON: None available. TECHNIQUE: AP external rotation, Grashey, scapular Y, and axillary views of the left shoulder. FINDINGS: Normal bone mineralization. No fracture, dislocation, or suspicious bone lesion. Normal alignment. The glenohumeral joint is normal. The AC joint demonstrates mild spurring. There is a type II acromion. No undersurface spurring. The subacromial space is preserved. Remainder of the soft tissue and bony structures appear normal. XR/XR shoulder LT min 2V IMPRESSION: 1. No acute bony or soft tissue abnormality of the left shoulder. Electronically signed by: Isidro Rodriguez MD 04/24/2025 12:22 PM EDT
--- OUTSIDE RECORDS SUMMARY | 2025-04-24 10:40 | XMS_ITS | Encounter Summary ---
Author Organization [employer] Address [address] [facility] 7[address] [place] [address] Care Team Providers Care Intervention Nurse Name Role Phone Scarlett Perez MD Primary Care Provider [phone] Reason for Referral * Consultation (Routine) - Pending Review Specialty Diagnoses / Procedures Referred By Satnam muhammad Referred To Contact Orthopaedic Surgery Diagnoses Chronic left shoulder pain Trigger ring finger of left hand Scott Birmingham MD [address] [place] [phone] Phone: tel: fax: Referral ID Status Reason Start Date Expiration Date Visits Requested Visits Authorized [id number] Pending Review Specialty Services Required 04/24/2025 04/24/2026 1 1 Reason for Visit * Reason Comments Arm Pain Encounter Details Date Type Department Care Team (Late st Contact Info) Description 04/24/2025 10:40 AM EDT Office Visit [facility] [address] [place] [phone] Scott Birmingham MD [address] [place] [phone] Chronic left shoulder pain (Primary Dx); Trigger ring finger of left hand; Influenza-like symptoms; Acute otitis externa of left ear, unspecified type Social History Tobacco Use Types Packs/Day Years [...] Sign Reading Time Taken Comments Blood Pressure 134/81 04/24/2025 11:03 AM EDT Pulse 83 04/24/2025 11:03 AM EDT Temperature 36.4 C (97.5 F) 04/24/2025 11:03 AM EDT Respiratory Rate 18 04/24/2025 11:03 AM EDT Oxygen Saturation 98% 04/24/2025 11:03 AM EDT Inhaled Oxygen Concentration - - Weight 74 kg (163 lb 3.2 oz) 04/24/2025 11:03 AM EDT Height - - Body Mass Index 28.91 01/22/2025 10:11 AM EDT documented in this encounter Progress Notes * Scott Birmingham MD - 04/24/2025 10:40 AM EDT Subjective Patient ID: Bonnie Worthy is a 54 y.o. female. 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 No fever, chills. Tried TheraFlu. States has h/o asthma, was prescribed albuterol HFA in past. Also has several month h/o pain in left shoulder with associated pain in adjacent neck and arm. Pain is not present at rest; pain occurs with ROM of left shoulder. Tried ibuprofen, Tylenol with little relief. No trauma, tick bite, rash, family h/o gout. Also has several month h/o left ring finger becoming stuck in flexion. Also has worsening pain in left ear, started a while ago. Wears left hearing aid, uses Q-tips in ear canals. Lives alone. Yesterday was with a friend who has similar symptoms. Works as [employer]. Never smoked. Patient Active Problem List Diagnosis Date Noted Severe episode of recurrent major depressive disorder, without psychotic features ([facility]/HCC) (HCC) 12/26/2024 MARIAH (generalized anxiety disorder) 12/26/2024 Facial swelling 11/23/2024 Rash 11/23/2024 Prediabetes 02/28/2024 Seasonal allergies 02/28/2024 Mixed hyperlipidemia 02/28/2024 H/O thyroidectomy 02/28/2024 The following portions of the chart were reviewed this encounter and updated as appropriate: Tobacco Allergies Meds Problems Med Hx Surg Hx Fam Hx Review of Systems Constitutional: Negative for fever. HENT: Positive for ear pain and sneezing. Respiratory: Positive for cough, shortness of breath and wheezing. Cardiovascular: Negative for chest pain. Gastrointestinal: Negative for abdominal pain. Musculoskeletal: Positive for arthralgias. Skin: Negative for rash. Neurological: Positive for headaches. Objective Physical Exam Constitutional: Appearance: Normal appearance. HENT: Right Ear: Tympanic membrane, ear canal and external ear normal. Left Ear: Tympanic membrane and external ear normal. Tenderness present. Nose: Nose normal. Mouth/Throat: Mouth: Mucous membranes are moist. Pharynx: Oropharynx is clear. Eyes: Conjunctiva/sclera: Conjunctivae normal. Pupils: Pupils are equal, round, and reactive to light. Cardiovascular: Rate and Rhythm: Normal rate and regular rhythm. Pulses: Radial pulses are 2+ on the left side. Heart sounds: No murmur heard. Pulmonary: Effort: Pulmonary effort is normal. Breath sounds: Normal breath sounds. Musculoskeletal: General: Normal range of motion. Cervical back: No tenderness. Comments: Left shoulder: tenderness anteriorly. Abduction limited to 90 degrees due to pain. Left ring finger: On flexion, becomes stuck in flexion at PIP joint. When pulled back into extension, has full ROM. Skin: Findings: No rash. Neurological: Mental Status: She is alert. Gait: Gait is intact. Psychiatric: Mood and Affect: Mood normal. Behavior: Behavior normal. Procedures Assessment/Plan Diagnoses and all orders for this visit: Chronic left shoulder pain X-rays of left shoulder mild degenerative changes with done in [facility] appear to show no acute findingswhen I reviewed images. Will call pt if radiologist reading differs. Prescribed lidocaine patches and tizanidine. I placed the patient in a shoulder immobilizer for comfort. Referred to orthopedic surgery. - XR Shoulder 2+ Views Left; Future Trigger ring finger of left hand Referred to orthopedic surgery. Influenza-like symptoms Negative rapid Covid and Influenza tests. Prescribed Flonase, refilled albuterol HFA and prescribed chamber. Prescribed prednisone. Return to clinic if not improving - POCT Rapid COVID Ag - Influenza A (ID NOW Rapid Molecular) - Influenza B (ID NOW Rapid Molecular) Acute otitis externa of left ear, unspecified type advised to avoid Q-tips. Prescribed Cipro HC eardrops. Return to clinic if not improving Other orders - fluticasone (Flonase Allergy Relief) 50 MCG/ACT nasal spray; Administer 1 spray into each nostrilOnce per day. Shake gently. Before first use, prime pump. After use, clean tip and replace cap. - albuterol 108 (90 Base) MCG/ACT inhaler; Inhale 2 puffs every 4 (four) hours if needed for wheezing or shortness of breath. - predniSONE (Deltasone) 20 MG tablet; Take 2 tablets (40 mg) by mouth Once per day for 5 days. - Spacer/Aero-Holding Chambers (OptiChamber Nicole) misc; 1 each every 4 (four) hours if needed (asthma). - tiZANidine (Zanaflex) 2 MG tablet; Take 1 tablet (2 mg) by mouth every 6 (six) hours if needed for muscle spasms for up to 10 days. - lidocaine (Lidoderm) 5 % patch; Apply 1 patch topically Once per day. Remove & discard patch within 12 hours or as directed by MD. documented in this encounter Plan of Treatment Upcoming Encounters Date Type Department Care Team (Late st Contact Info) Description 05/03/2025 10:30 AM EDT Office Visit [facility] [address] [place] [address] Serene Ellsworth, OD [address] [place] [address] 05/16/2025 3:00 PM EDT Office Visit [facility] [address] [place] [address] Scarlett Perez MD [address] [place] [address] Scheduled Referrals Name Type Priority Associated Diagnoses Order Schedule Referral to Orthopaedic Surgery Outpatient Referral Routine Chronic left shoulder pain Trigger ring finger of left hand Expected: 04/24/2025 (Approximate), Expires: 04/24/2026 documented as of this encounter Procedures Procedure Name Priority Date/Time Associated Diagnosis Comments XR SHOULDER 2+ VIEWS LEFT Routine 04/24/2025 12:17 PM EDT Chronic left shoulder pain POCT INFLUENZA B (ID NOW RAPID MOLECULAR) Routine 04/24/2025 11:50 AM EDT Influenza-like symptoms POCT INFLUENZA A (ID NOW RAPID MOLECULAR) Routine 04/24/2025 11:50 AM EDT Influenza-like symptoms POCT RAPID COVID ANTIGEN Routine 04/24/2025 11:50 AM EDT Influenza-like symptoms documented in this encounter Results * XR Shoulder 2+ Views Left (04/24/2025 12:17 PM EDT) Anatomical Region Laterality Modality Upper Extremities, Shoulder Left Radi ographic Imaging 04/24/2025 12:1 7 PM EDT Narrative 04/24/2025 12:24 PM EDT [facility] [address] [place] [address] XRay Report Signed Patient: Bonnie Worthy MR#: [id number] : 1970 Acct:[id number] Age/Sex: 54 / F ADM Date: 04/24/25 Loc: HO.HHCX Attending Dr: cSott Birmingham MD Ordering Physician: SCOTT BIRMINGHAM MD Date of Service: 04/24/25 Procedure(s): XR shoulder LT min 2V Accession Number(s): [id number] cc: SCOTT BIRMINGHAM MD Reason for Exam: atraumatic left shoulder pain EXAMINATION: XR SHOULDER, LEFT CLINICAL INFORMATION: atraumatic left shoulder pain COMPARISON: None available. TECHNIQUE: AP external rotation, Grashey, scapular Y, and axillary views of the left shoulder. FINDINGS: Normal bone mineralization. No fracture, dislocation, or suspicious bone lesion. Normal alignment. The glenohumeral joint is normal. The AC joint demonstrates mild spurring. There is a type II acromion. No undersurface spurring. The subacromial space is preserved. Remainder of the soft tissue and bony structures appear normal. XR/XR shoulder LT min 2V IMPRESSION: 1. No acute bony or soft tissue abnormality of the left shoulder. Electronically signed by: Isidro Rodriguez MD 04/24/2025 12:22 PM EDT Dictated By: Isidro Rodriguez MD Signed By: <Electronically signed by Isidro Rodriguez MD in OV> 04/24/25 1222 DD/ 1217 TD/TT: 04/24/25 1217 Cold Rolling Supervisor: Procedure Note Donotuseinterpreter, Image - 04/24/2025 [facility] [address] [place] [address] XRay Report Signed Patient: Silverio Worthy#: [id number] : 1970Acct:[id number] Age/Sex: 54 / FADM Date: 04/24/25 Loc: HO.HHCX Attending Dr: Scott Birmingham MD Ordering Physician: SCOTT BIRMINGHAM MD Date of Service: 04/24/25 Procedure(s): XR shoulder LT min 2V Accession Number(s): [id number] cc: SCOTT BIRMINGHAM MD Reason for Exam: atraumatic left shoulder pain EXAMINATION: XR SHOULDER, LEFT CLINICAL INFORMATION: atraumatic left shoulder pain COMPARISON: None available. TECHNIQUE: AP external rotation, Grashey, scapular Y, and axillary views of the left shoulder. FINDINGS: Normal bone mineralization. No fracture, dislocation, or suspicious bone lesion. Normal alignment. The glenohumeral joint is normal. The AC joint demonstrates mild spurring. There is a type II acromion. No undersurface spurring. The subacromial space is preserved. Remainder of the soft tissue and bony structures appear normal. XR/XR shoulder LT min 2V IMPRESSION: 1. No acute bony or soft tissue abnormality of the left shoulder. Electronically signed by: Isidro Rodriguez MD 04/24/2025 12:22 PM EDT Dictated By: Isidro Rodriguez MD Signed By: <Electronically signed by Isidro Rodriguez MD in OV> 04/24/25 1222 DD/ 1217 TD/TT: 04/24/25 1217 Cold Rolling Supervisor: Scott Birmingham MD IMG XR PROCEDURES Final Result * Influenza B (ID NOW Rapid Molecular) (04/24/2025 11:50 AM EDT) Influenza B Negative Negative, Indeterminate [facility] Swab 04/24/2025 11:5 0 AM EDT us Scott Birmingham MD POINT OF CARE TEST ENTER/EDIT OR DERABLES Final Result Performing Organization Address [facility] Co de Phone Number [facility] [address] [place] [phone] * Influenza A (ID NOW Rapid Molecular) (04/24/2025 11:50 AM EDT) Influenza A Negative Negative, Indeterminate [facility] Swab 04/24/2025 11:5 0 AM EDT us Scott Birmingham MD POINT OF CARE TEST ENTER/EDIT OR DERABLES Final Result Performing Organization Address [facility] Co de Phone Number [facility] [address] [place] [phone] * POCT Rapid COVID Ag (04/24/2025 11:50 AM EDT) Rapid COVID Ag Negative [facility] Swab 04/24/2025 11:5 0 AM EDT us Scott Birmingham MD POINT OF CARE TEST ENTER/EDIT OR DERABLES Final Result Performing Organization Address [facility] de Phone Number [facility] [address] [place] [phone] documented in this encounter Visit Diagnoses Diagnosis Chronic left shoulder pain- Primary Pain in joint, shoulder region Trigger ring finger of left hand Influenza-like symptoms Other general symptoms Acute otitis externa of left ear, unspecified type documented in this encounter Additional Health Concerns Assessment Noted Time PHQ-9 Depression Total Score: 24 025 9:25 AM EDT documented as of this encounter Care Teams Intervention Nurse Relationship Specialty Start Date End Date Scarlett Perez MD [address] [place] [address] PCP - General Family Medicine 12/25/24 documented as of this encounter
--- OUTSIDE RECORDS SUMMARY | 2025-04-24 15:03 | XMS_ITS | Encounter Summary ---
Author Organization [employer] Address [address] [place] [address] Care Team Providers Care Emergency Room Tech Name Role Phone Scarlett Perez MD Primary Care Provider [phone] Encounter Details Date Type Department Care Team ([facility] st Contact Info) Description 03/01/2025 Results Follow-Up [facility] [address] [place] [phone] Yuan Devine MD [address] [place] [phone] CBC auto differential, C-reactive Protein, Sed Rate by Modified Westergren, Additional followed-up results: 2 Social History Tobacco Use Types Packs/Day Years [...] Description 05/03/2025 10:30 AM EDT Office Visit [facility] [address] [place] [address] Taralicia Serene, OD [address] [place] [address] 05/16/2025 3:00 PM EDT Office Visit [facility] [address] [place] [address] Scarlett Perez MD [address] [place] [address] documented as of this encounter Visit Diagnoses Not on filedocumented in this encounter Additional Health Concerns Assessment Noted Time PHQ-9 Depression Total Score: 24 025 9:25 AM EDT documented as of this encounter Care Teams Emergency Room Tech Relationship Specialty Start Date End Date Scarlett Perez MD [address] [place] [address] PCP - General Family Medicine 12/25/24 documented as of this encounter
--- OUTSIDE RECORDS SUMMARY | 2025-04-24 15:03 | XMS_ITS | Patient Health Record ---
Author Organization [facility] Address [address] [place], [place] [id number] Care Team Providers Care Day Camp Counselor Name Role Phone MELVIN STORY Primary Care [...] Status Risk Notes Problem Chronic idiopathic constipation (14239733) Chronic idiopathic constipation (K59.04) Active confirmed Plan Of Treatment No Information Insurance Providers Payer Name Payer Address Payer Phone Subscriber Number Group Number Insured Name Patient Relationship to Insured Coverage Start Date Coverage End Date [facility] [address] [place] [address] [id number] Bonnie Jean Self - patient is the insured MEDICAID [address] [place] [address] [id number] Bonnie Jean Self - patient is the insured Medical (General) History Medical History History ICD Code hypothyroidism Surgical History Surgery Date(Month/Year) thyroidectomy
--- OUTSIDE RECORDS SUMMARY | 2025-04-24 15:03 | XMS_ITS | Encounter Summary ---
Author Organization [employer] Address [address] [facility] [address] [place] [address] Care Team Providers Care Spray Foam Installer Name Role Phone Scarlett Perez MD Primary Care Provider [phone] Reason for Visit * Reason Onset Date Comments Med Refill 09/27/2024 Encounter Details Date Type Department Care Team ([facility] st Contact Info) Description 09/27/2024 Telephone [facility] [address] [place], [place] [phone] Fermín Hernandez MD [address] [place] [address] Med Refill Social History Tobacco Use Types [...] 100 MCG tablet To be sent to: [facility] - [place], [place] - [address] [place] [address] documented in this encounter Plan of Treatment Upcoming Encounters Date Type Department Care Team (Late st Contact Info) Description 05/03/2025 10:30 AM EDT Office Visit [facility] [address] [place] [address] Serene Ellsworth, OD [address] [place] [address] 05/16/2025 3:00 PM EDT Office Visit [facility] [address] [place] [address] Scarlett Perez MD [address] [place] [phone] documented as of this encounter Visit Diagnoses Not on filedocumented in this encounter Care Teams Spray Foam Installer Relationship Specialty Start Date End Date Scarlett Perez MD [address] [place] [phone] PCP - General Family Medicine 12/25/24 documented as of this encounter
--- OUTSIDE RECORDS SUMMARY | 2025-04-24 15:03 | XMS_ITS | Clinical Summary ---
Author Organization [employer] Address [address] [place] [address] Care Team Providers Care Foundry Tender Name Role Phone Scarlett Perez MD Primary Care Provider [phone] Allergies Active Allergy Reactions Criticality Noted Date Comments Fish-Derived Products 02/25/2024 Penicillin G 09/18/2024 Shellfish Allergy 12/26/2024 Medications * This document contains information received from the source organization and may not represent a complete record from that organization. levothyroxine (Synthroid) 100 MCG tabletIndications :H/O thyroidectomy Take 1 tablet (100 mcg) by mouth before breakfast. 90 tablet 3 5 026 Active acetaminophen (Tylenol) 500 MG tablet Take 1 tablet (500 mg) by mouth every 6 (six) hours if needed for mild pain for up to 20 doses. 20 tablet 5 Active chlorhexidine (Peridex) 0.12 % solution Swish 15 mL morning and night for 1 minute. Spit, do not swallow. Do not eat or drink for 30 minutes following use. 473 mL 5 Active Additional Information Patient not taking.Reported on 12/07/2024 cetirizine (ZyrTEC) 10 MG tabletIndications :Seasonal allergies [...] minutes following use. 473 mL 5 Active diphenhydrAMINE (BENADryl) 25 MG tabletIndications :Rash,Seasonal allergies Take 1 tablet (25 mg) by mouth if needed at bedtime for itching or allergies. 30 tablet 1 5 Active predniSONE (Deltasone) 20 MG tabletIndications :Facial swelling Take 1 tablet (20 mg) by mouth Once daily as needed (allergic reaction of skin swelling). 5 tablet 5 Active PARoxetine (Paxil) 10 MG tabletIndications :Symptoms, such as flushing, sleeplessness, headache, lack of concentration, associated with the menopause Take 1 tablet (10 mg) by mouth in the morning. For menopause symtpoms 30 tablet 11 5 026 Active azithromycin (Zithromax) 250 MG tablet Take 2 tabs day and then 1 tab daily 6 tablet 5 Active pseudoephedrine (Sudafed) 30 MG tablet Take 1 tablet (30 mg) by mouth every 4 (four) hours if needed for congestion for up to 10 days. 30 tablet 5 Active famotidine (Pepcid) 20 MG tabletIndications :Gastritis, presence of bleeding unspecified, unspecified chronicity, unspecified gastritis type Take 1 tablet (20 mg) by mouth 2 times daily. 60 tablet 11 5 026 Active fluticasone (Flonase Allergy Relief) 50 MCG/ACT nasal spray Administer 1 spray into each nostril Once per day. Shake gently. Before first use, prime pump. After use, clean tip and replace cap. 16 g 12 5 026 Active albuterol 108 (90 Base) MCG/ACT inhaler Inhale 2 puffs every 4 (four) hours if needed for wheezing or shortness of breath. 18 g 1 5 Active predniSONE (Deltasone) 20 MG tablet Take 2 tablets (40 mg) by mouth Once per day for 5 days. 10 tablet 5 Active Spacer/Aero-Holdi ng Chambers (OptiChamber Nicole) misc 1 each every 4 (four) hours if needed (asthma). 1 each 5 Active tiZANidine (Zanaflex) 2 MG tablet Take 1 tablet (2 mg) by mouth every 6 (six) hours if needed for muscle spasms for up to 10 days. 30 tablet 5 Active lidocaine (Lidoderm) 5 % patch Apply 1 patch topically Once per day. Remove & discard patch within 12 hours or as directed by MD. 30 patch 2 5 Active ciprofloxacin-hyd rocortisone (Cipro HC Otic) otic suspension Administer 3 drops into each ear 2 times daily for 7 days. 10 mL 5 Active Active Problems Problem Noted Date Diagnosed Date Severe episode of recurrent major depressive disorder, without psychotic features (CMS/HCC) 12/26/2024 MARIAH (generalized anxiety disorder) 12/26/2024 Facial [...] Encounters Date Type Department Care Team Description 04/24/2025 10:40 AM EDT Office Visit [facility] [address] [address] Scott Birmingham MD Chronic left shoulder pain (Primary Dx); Trigger ring finger of left hand; Influenza-like symptoms; Acute otitis externa of left ear, unspecified type 03/21/2025 Telephone [facility] [address] [place] [phone] Yuan Devine MD 03/01/2025 Results [facility] [address] [address] Yuan Devine MD CBC auto differential, C-reactive Protein, Sed Rate by Modified Westergren, Additional followed-up results: 2 02/22/2025 9:40 AM EDT Office Visit [address] [address] Yuan Devine MD RUQ abdominal pain (Primary Dx) 02/22/2025 Travel 02/08/2025 4:00 PM EDT Office Visit [address] [address] Carmen Lombardi MD Gastritis, presence of bleeding unspecified, unspecified chronicity, unspecified gastritis type (Primary Dx); Generalized abdominal pain; Colon cancer screening 02/08/2025 Travel 02/08/2025 Telephone [facility] [address] [place] [phone] Scarlett Perez MD Nurse Triage 01/22/2025 10:40 AM EDT Office Visit [address] [address] Amy Haynes MD Acute non-recurrent maxillary sinusitis (Primary Dx) 01/22/2025 Travel from Last 3 Months Social History [...] 3.2 oz) 04/24/2025 11:03 AM EDT Height 160 cm (5' 3 ) 01/22/2025 10:11 AM EDT Body Mass Index 28.91 01/22/2025 10:11 AM EDT Plan of Treatment Upcoming Encounters Date Type Department Care Team (Late st Contact Info) Description 05/03/2025 10:30 AM EDT Office Visit [facility] [address] [place] [address] Serene Ellsworth, OD [address] [place] [address] 05/16/2025 3:00 PM EDT Office Visit [facility] [address] [place] [address] Scarlett Perez MD [address] [place] [address] Health Maintenance Due Date Last Done Comments CT Colonography 1968 Colonoscopy 1968 Colorectal Cancer Screening 1968 FIT DNA/Cologuard 1968 FIT 1968 FOBT 1968 Sigmoidoscopy 1968 Hepatitis C Screening 1986 DTaP/Tdap/Td Vaccines (1 - Tdap) 10/27/1987 Hepatitis A Vaccines (1 of 2 - Risk 2-dose series) 10/27/1987 Hepatitis B Vaccines (1 of 3 - 19+ 3-dose series) 10/27/1987 Pap Smear 1989 Cervical Cancer Screening 1998 HPV/Cotest 1998 Mammogram 2008 Pneumococcal Vaccine: 50+ Years (1 of 1 - PCV) 2018 Zoster Vaccines (1 of 2) 2018 Dental Prophylaxis 03/07/2025 09/06/2024 COVID-19 Vaccine (1 - 2023-2 5 season) 2025 Influenza Vaccine (#1) 2025 04/18/2024 Dental Oral Exam 04/22/2025 10/20/2024 Depression Monitoring 06/27/2025 12/26/2024 , 12/26/2024 Dental X-Ray: Bitewings 09/07/2025 09/06/2024 Diabetes: Hemoglobin A1C 09/25/2025 09/25/2024 Alcohol/Substance Use Screening 12/26/2025 12/26/2024 Disability Screening 12/26/2025 12/26/2024 SDOH Screening 12/26/2025 12/26/2024 Tobacco Screening 04/24/2026 04/24/2025 Dental X-Ray: Full Mouth 09/07/2027 09/06/2024 RSV [...] Routine 04/24/2025 11:50 AM EDT Influenza-like symptoms COMPREHENSIVE METABOLIC PANEL Routine 02/22/2025 10:20 AM EDT RUQ abdominal pain CELIAC DISEASE COMPREHENSIVE PANEL Routine 02/22/2025 10:20 AM EDT RUQ abdominal pain SED RATE BY MODIFIED WESTERGREN Routine 02/22/2025 10:20 AM EDT RUQ abdominal pain C-REACTIVE PROTEIN Routine 02/22/2025 10 :20 AM EDT RUQ abdominal pain CBC WITH AUTO DIFFERENTIAL Routine 02/22/2025 10:20 AM EDT RUQ abdominal pain HELICOBACTER PYLORI AG, EIA, STOOL Routine 02/11/2025 7:00 PM EDT Generalized abdominal pain POCT RAPID COVID ANTIGEN Routine 01/22/2025 1:52 PM EDT Acute non-recurrent maxillary sinusitis PERIODIC ORAL EVALUATION - ESTABLISHED PATIENT Routine 10/20/2024 11:00 AM EDT HEMOGLOBIN A1C Routine 09/25/2024 2:13 PM EDT Mixed hyperlipidemia PROPHYLAXIS - ADULT Routine 09/06/2024 1 1:00 AM EST INTRAORAL - COMPLETE SERIES OF RADIOGRAPHIC IMAGES Routine 09/06/2024 11:00 AM EST from Last 3 Months or Most Recently Relevant to Health Maintenance Results * XR Shoulder 2+ Views Left (04/24/2025 12:17 PM EDT) Anatomical Region Laterality Modality Upper Extremities, Shoulder Left Radi ographic Imaging 04/24/2025 12:1 7 PM EDT Narrative 04/24/2025 12:24 PM EDT [address] [address] XRay Report Signed Patient: Bonnie Worthy MR#: [id number] : 1970 Acct:[id number] Age/Sex: 54 / F ADM Date: 04/24/25 Loc: HO.CX Attending Dr: Scott Birmingham MD Ordering Physician: SCOTT BIRMINGHAM MD Date of Service: 04/24/25 Procedure(s): XR shoulder LT min 2V Accession Number(s): [id number] cc: SCOTT BIRMINGHAM MD Reason for Exam: [...] 04/24/25 1222 DD/ 1217 TD/TT: 04/24/25 1217 Chef Broiler Or Fry: Procedure Note Donotuseinterpreter, Image - 04/24/[address] [address] XRay Report Signed Patient: Silverio Worthy#: [id number] : 1970Acct:[id number] Age/Sex: 54 / FADM Date: 04/24/25 Loc: HO.CX Attending Dr: Scott Birmingham MD Ordering Physician: SCOTT BIRMINGHAM MD Date of Service: 04/24/25 Procedure(s): XR shoulder LT min 2V Accession Number(s): [id number] cc: SCOTT BIRMINGHAM MD Reason for Exam: [...] Isidro Rodriguez MD 04/24/2025 12:22 PM EDT RP Dictated By: Isidro Rodriguez MD Signed By: <Electronically signed by Isidro Rodriguez MD in OV> 04/24/25 1222 DD/ 1217 TD/TT: 04/24/25 1217 Chef Broiler Or Fry: Scott Birmingham MD IMG XR PROCEDURES Final Result * Influenza B (ID NOW Rapid Molecular) (04/24/2025 11:50 AM EDT) Pathologist [facility] Influenza B Negative Negative, Indeterminate [facility] Swab 04/24/2025 11:5 0 AM EDT Scott Birmingham MD POINT OF CARE TEST ENTER/EDIT OR DERABLES Final Result [facility] [address] [place] [phone] * Influenza A (ID NOW Rapid Molecular) (04/24/2025 11:50 AM EDT) Influenza A Negative Negative, Indeterminate [facility] Swab 04/24/2025 11:5 0 AM EDT Scott Birmingham MD POINT OF CARE TEST ENTER/EDIT OR DERABLES Final Result Performing Organization Address City/[facility]/ZIP Co de Phone Number [facility] [address] [place] [address] [phone] * POCT Rapid COVID Ag (04/24/2025 11:50 AM EDT) Only the most recent of2 resultswithin the time period is included. Rapid COVID Ag Negative [facility] Swab 04/24/2025 11:5 0 AM EDT Scott Birmingham MD POINT OF CARE TEST ENTER/EDIT OR DERABLES Final Result Performing Organization Address [facility] Co de Phone Number [facility] [address] [place] [address] [phone] * (ABNORMAL) CBC auto differential (02/22/2025 10:20 AM EDT) [facility] White Blood Count 5.2 4.8 - 10.8 X10*3/uL [facility] Red Blood Count 4.87 4.20 - 5.50 X10*6/uL [facility] Hemoglobin 13.7 12.0 - 16.0 g/dl [facility] Hematocrit 41.2 37.0 - 47.0 % [facility] Mean Corpuscular Volume 84.6 80.0 - 98.0 fL [facility] Mean Corpuscular Hemoglobin 28.1 27.0 - 33.0 pg [facility] Mean Corpuscular HGB Conc 33.3 31.0 - 35.0 g/dl [facility] Red Cell Distribution Width 13.2 11.0 - 16.0 % [facility] Platelet Count 371 160 - 400 X10*3/uL [facility] Mean Platelet Volume 10.1 9.4 - 12.3 fL [facility] Neutrophils Percent Auto 44.7(L) 45 - 73 % [facility] Imm Gran Pct Auto 0.4 0.0 - 0.4 % [facility] Lymphocytes Percent Auto 38.2 20 - 40 % [facility] Monocytes Percent Auto 9.4 2 - 11 % [facility] Eosinophils Percent Auto 6.7(H) 0 - 4 % [facility] Basophils Percent Auto 0.6 0 - 2 % [facility] NRBC Pct Auto 0.0 0.0 - 0.2 /100WBC [facility] Neutrophils Absolute Auto 2.3 2.0 - 8.3 x10*3/uL [facility] Imm Gran Abs Auto 0.02 0.00 - 0.03 X10*3/uL [facility] Lymphocytes Absolute Auto 2.0 1.2 - 4.9 X10*3/uL [facility] Monocytes Absolute Auto 0.5 0.1 - 1.2 X10*3/uL [facility] Eosinophils Absolute Auto 0.4 0.0 - 0.4 X10*3/uL [facility] Basophils Absolute Auto 0.0 0.0 - 0.2 X10*3/uL [facility] NRBC Abs Auto 0.000 0.0 - 0.012 X10*3/uL [facility] Blood Venous blood specimen / Unknown 02/22/2025 10:20 AM EDT 02/22/2025 11:25 AM EDT us Yuan Devine MD LAB BLOOD ORDERABLES Final Resul t [facility] [address], [place] [phone] * (ABNORMAL) Celiac Disease Comprehensive Panel (02/22/2025 10:20 AM EDT) Immunoglobulin A, Qn, Serum 408(A) 47 - 310 mg/dL [facility] Comment:THIS TEST WAS PERFOR MED AT:[email or web address] [place] [phone] TERRY MD Transglutaminase IgA <1.0 U/mL [facility] Comment:Value Interpretation ----- <15.0 Antibody not detected> or = 15.0 Antibody detected Interpretation SEE NOTE [facility] Comment:No serological evide nce of celiac disease.Total serum IgA is elevated. Consider mucosalinflammatory conditions or underlying gammopathy. Blood Venous blood specimen / Unknown 02/22/2025 10:20 AM EDT 02/22/2025 11:25 AM EDT us Yuan Devine MD LAB BLOOD ORDERABLES Final Resul t Performing Organization Address [facility] Co de Phone Number [facility] [address] [place] [phone] * Sed Rate by Modified Westergren (02/22/2025 10:20 AM EDT) Erythrocyte Sedimentation Rate 12 0 - 20 MM/HR [facility] Comment:Patients with polycy themia and many hemoglobin abnormalitiesmay have depressed sed rates whereas patients with anemiamay have elevated sed rates. Blood Venous blood specimen / Unknown 02/22/2025 10:20 AM EDT 02/22/2025 11:25 AM EDT us Yuan Devine MD LAB BLOOD ORDERABLES Final Resul t Performing Organization Address [facility] de Phone Number [facility] [address] [place] [phone] * C-reactive Protein (02/22/2025 10:20 AM EDT) C Reactive Protein 0.10 < or = 0.50 mg/dL [facility] Blood Venous blood specimen / Unknown 02/22/2025 10:20 AM EDT 02/22/2025 11:25 AM EDT us Yuan Devine MD LAB BLOOD ORDERABLES Final Resul t Performing Organization Address [facility] Co de Phone Number [facility] [address] [place] [phone] * (ABNORMAL) Comprehensive Metabolic Panel (02/22/2025 10:20 AM EDT) Sodium 141 135 - 145 mmol/L [facility] Potassium 4.0 3.3 - 5.1 mmol/L [facility] Chloride 105 96 - 108 mmol/L [facility] Carbon Dioxide 30(H) 22 - 29 mmol/L [facility] Anion Gap 10(L) 12 - 20 [facility] Urea Nitrogen (BUN) 13 9 - 16 mg/dL [facility] Creatinine, Serum 0.63 0.5 - 1.4 mg/dL [facility] Estimated Glomerular Filt Rate >60 [facility] Comment:Chronic Kidney Disea se: Estimated GFR < 60 mL/min/1.82o0Aagmov Kidney Disease: Estimated GFR < 15 mL/min/1.73m2 Glucose 89 60 - 115 mg/dL [facility] Calcium 9.3 8.4 - 10.2 mg/dL [facility] Bilirubin, Total 1.4(H) 0.0 - 1.0 mg/dL [facility] Aspartate Amino Transferase 24 5 - 31 U/L [facility] Alanine Aminotransferase 22 0 - 31 U/L [facility] Total Protein 7.8 6.5 - 8.0 g/dL [facility] Albumin Level 4.5 3.5 - 5.0 g/dL [facility] Alkaline Phosphatase 85 39 - 117 U/L [facility] Blood Venous blood specimen / Unknown 02/22/2025 10:20 AM EDT 02/22/2025 11:25 AM EDT us Yuan Devine MD LAB BLOOD ORDERABLES Final Resul t [facility] [address] [place] [phone] * Helicobacter pylori??Antigen, EIA, Stool (02/11/2025 7:00 PM EDT) H pylori Ag Stool SEE NOTE [facility] Comment:HELICOBACTER PYLORI AG, EIA, STOOL Micro Number: [id number] Test Status: Final Specimen Source: Stool Specimen Quality: Adequate H.pylori Ag: Not Detected Antimicrobials, proton pump inhibitors, and bismuth preparations inhibit H. pylori and ingestion up to two weeks prior to testing may cause false negative results. If clinically indicated the test should be repeated on a new specimen obtained two weeks after discontinuing treatment. Reference Range: Not DetectedTHIS TEST WAS PERFORMED AT:[employer] [address] [phone] TERRY MD Stool Rectal contents / Unknown 02/11/2025 7:00 PM EDT 02/12/2025 12:29 PM EDT Carmen Lombardi MD LAB BODY FLUIDS AND STOOLS ORDERABLES Final Result Performing Organization Address [facility] Co de Phone Number [facility] [address] [place] [phone] * Hemoglobin A1c (09/25/2024 2:13 PM EDT) Hemoglobin A1c 5.7 <6.0 % [facility] Comment:Hemoglobin A1C Refer ence Range Adults: 4.8 - 6.0 % Non diabetic: < 6.0 % Goal: < 7.0 %Additional Action Suggested: > 8.0 %Note: Hemoglobin A1c results are invalid for patients with abnormal amounts of HbF. Blood transfusions may impact the HbA1c concentration in the patient sample. Estimated Average Glucose 117 mg/dL [facility] Comment:eAG = Estimated ave rage glucose which is %A1C expressed asaverage glucose, using the formula of the [id number] Glucose study (ADAG), Diabetes Care, Vol.31,#8,Feb. 2007 Blood Venous blood specimen / Unknown 09/25/2024 2:13 PM EDT 09/25/2024 4:00 PM EDT Scarlett Perez MD LAB BLOOD ORDERABLES Final Res ult Performing Organization Address [facility] Co de Phone Number [facility] [address] [place] [phone] from Last 3 Months or Most Recently Relevant to Health Maintenance Insurance [facility] 2 HSN PARTIAL DENTAL - HSN FULL (MEDICAID) DENTAL-[facility] MEDICAID LIMITED ADULT Care Teams Foundry Tender Relationship Specialty Start Date End Date Scarlett Perez MD [address] [place] [phone] PCP - General Family Medicine 12/25/24
--- OUTSIDE RECORDS SUMMARY | 2025-04-24 15:03 | XMS_ITS | Clinical Summary ---
Author Organization [facility] Address [address] [place] [address] Care Team Providers Care Journeyman Pressman Name Role Phone Robin Arriola NP Primary Care Provider [phone] Source Comments PLEASE NOTE, if this patient [...] sprayIndications:S easonal allergies,Need for vaccination Place 1 [place] in both nostrils once daily for 30 [...] 2018 Imm-Zoster, Recombinant (1 of 2) 2018 Alcohol and Drug Screen 07/19/2024 04/18/2024 Depression Annual Screen 07/19/2024 04/18/2024 Diabetes Screening 02/24/2025 02/25/2024, 02/25/2024 [id number] ( season) 2025 Imm-Influenza (#1) 2025 04/18/2024 Anxiety Screening 04/18/2025 04/18/2024 Hypertension Screening (#1) 04/18/2025 TSH Monitoring 04/19/2025 04/19/2024, 02/25/2024 Tobacco Screening 06/14/2025 06/14/2024 Lipid Screening 02/24/2029 02/25/2024 HIV Screening Completed 02/25/2024 Hepatitis C [...] TO FT4 1.39 0.40 - 4.50 mIU/L [facility] Comment: Reference Range > or = 20 Years 0.40-4.50 Ranges First trimester 0.26-2.66 Second trimester 0.55-2.73 Third trimester 0.43-2.91 Blood Blood / Unknown 04/19/2024 1 0:00 AM EDT 04/19/2024 10:01 AM EDT Narrative [facility] - 04/20/2024 6:34 AM EDT FASTING:NO us Trevon Ramirez PATIENT RELATIONS LIAISON LAB - BLOOD DRAW Final Resul t [facility] [address] [address], [facility] [address] [address] * HIV 1/2 AG & AB W/RFLX (4TH GEN) (02/25/2024 10:05 AM EDT) HIV AG/AB, 4TH GEN NON-REAC TIVE NON-REAC TIVE [facility] Comment: HIV-1 antigen and HIV-1/HIV-2 antibodies were [...] purpose. For additional information please refer to http://education.eSpace/faq/BDR929 (This link is being provided for informational/ educational purposes only.) The performance of this assay has not been clinically validated in patients less than 2 years old. Blood Blood / Unknown 02/25/2024 1 0:05 AM EDT 02/25/2024 10:05 AM EDT Narrative [email or web address] - 02/26/2024 8:37 AM EDT FASTING:YES Laura Mejia PA-C LAB - BLOOD DRAW Final Resul t [email or web address] [address] [place] [id number], [facility] [address] [place] [id number] * (ABNORMAL) HGA1C W/EAG (02/25/2024 10:05 AM EDT) Pathologist [facility] HEMOGLOBIN A1C 6.0(H) <5.7 % of total Hgb [facility] Comment: For someone without known diabetes, a [...] diabetes for children. EAG (MG/DL) 126 mg/dL [facility] EAG (MMOL/L) 7.0 mmol/L [facility] Blood Blood / Unknown 02/25/2024 1 0:05 AM EDT 02/25/2024 10:05 AM EDT Narrative [facility] - 02/26/2024 8:37 AM EDT FASTING:YES Laura LANCASTERC LAB - BLOOD DRAW Edited Resu lt - Final [facility] [address] [address], [facility] [address] [address] * HEPATITIS PANEL W/RFLX (02/25/2024 10:05 AM EDT) HEPATITIS A IGM ANTIBODY NON-REACT ELLYN NON-REACT ELLYN [facility] COMMENT [facility] HEPATITIS B SURFACE ANTIGEN NON-REACT ELLYN NON-REACT ELLYN [facility] COMMENT [facility] HEPATITIS B CORE IGM ANTIBODY NON-REACT ELLYN NON-REACT ELLYN [facility] COMMENT [facility] HEPATITIS C ANTIBODY NON-REACT ELLYN NON-REACT ELLYN [facility] Comment: HCV antibody was non-reactive. There is no laboratory evidence of HCV infection. In most cases, no further action is required. However, if recent HCV exposure is suspected, a test for HCV RNA (test code 20939) is suggested. For additional information please refer to http://Synchronized.eSpace/faq/EHG13z4 (This link is being provided for informational/ educational purposes only.) Blood Blood / Unknown 02/25/2024 1 0:05 AM EDT 02/25/2024 10:05 AM EDT Narrative [facility] - 02/26/2024 8:37 AM EDT FASTING:YES For additional information, please refer to http://nuvoTV/faq/KPU106 (This link is being provided for informational/ educational purposes only.) For additional information, please refer to http://education.eSpace/faq/LGV031 (This link is being provided for informational/ educational purposes only.) For additional information, please refer to http://Synchronized.eSpace/faq/BSO348 (This link is being provided for informational/ educational purposes only.) Laura Mejia PA-C LAB - BLOOD DRAW Final Resul t [facility] [address] [address], [facility] [address] [place] [address] * (ABNORMAL) LIPIDS W RFLX TO DIRECT LDL (02/25/2024 10:05 AM EDT) CHOLESTEROL, TOTAL 242(H) <200 mg/dL [facility] HDL CHOLESTEROL 71 > OR = 50 mg/dL [facility] TRIGLYCERIDES 140 <150 mg/dL [facility] LDL-CHOLESTEROL 145(H) 99 mg/dL (calc) [facility] Comment: Reference range: <100 Desirable range <100 mg/dL for primary prevention; <70 mg/dL for patients with CHD or diabetic patients with > or = 2 CHD risk factors. LDL-C is now calculated using the Rosas-Schuler calculation, which is a validated novel method providing better accuracy than the Friedewald equation in the estimation of LDL-C. Rosas GARCIA et al. TRUMAN. 2013;310(19): 4551-2350 (http://education.Adometry By Google.Hybrid Logic/faq/DHE422) CHOL/HDLC RATIO 3.4 <5.0 (calc) [facility] NON-HDL CHOLESTEROL 171(H) <130 mg/dL (calc) [facility] Comment: For patients with diabetes plus 1 major ASCVD risk factor, treating to a non-HDL-C goal of <100 mg/dL (LDL-C of <70 mg/dL) is considered a therapeutic option. Blood Blood / Unknown 02/25/2024 1 0:05 AM EDT 02/25/2024 10:05 AM EDT Narrative [facility] - 02/26/2024 8:37 AM EDT FASTING:YES us Laura Mejia PA-C LAB - BLOOD DRAW Final Resul t [facility] [address] [address], [facility] [address] [place] [address] from Last 3 Months or Most Recently Relevant to Health Maintenance Insurance [place] [employer] [place] Care Teams Journeyman Pressman Relationship Specialty Start Date End Date Robin Arriola NP [address] [place] [address] PCP - General Family Medicine, QUALITY IMPROVEMENT CONSULTANT 05/11/24
== END 2025-04-24 12:00 | disposition home or self-care (01) ==
LOC: HO.HHCX 11:59
PROVIDERS: Visit Provider Emergency Medicine
DX: M25.512 Pain in left shoulder (principal); G89.29 Other chronic pain
CPT/HCPCS: 73030

== ENCOUNTER → 2025-04-24 12:01 | Outpatient (BNV) | payer OTHER, SELFPAY | PROVIDERS: Visit Provider Radiology Diagnostic Radiology | DX: M19.012 Primary osteoarthritis, left shoulder (principal) | CPT/HCPCS: 73030 ==

== ENCOUNTER 2025-05-17 09:54 | Outpatient (REF) | payer OTHER, SELFPAY ==
--- OUTSIDE RECORDS SUMMARY | 2025-05-16 15:00 | XMS_ITS | Encounter Summary ---
Author Organization [employer] Address [address] [facility] 7[address] [place] [address] Care Team Providers Care Director Pharmaceutical Name Role Phone Scarlett Perez MD Primary Care Provider [phone] Reason for Referral * Imaging (Routine) - Authorized Specialty Diagnoses / Procedures Referred By Contac t Referred To Contact Radiology Diagnoses Pelvic pain Procedures US OB Pelvis with Transvaginal Scarlett Perez MD [address] [place] [address] Phone: tel: fax: [address] Phone: tel: fax: Referral ID Status Reason Start Date Expiration Date V isits Requested Visits Authorized [id number] Authorized 05/16/2025 05/16/2026 1 1 * Imaging (Routine) - Authorized Specialty Diagnoses / Procedures Referred By Contac t Referred To Contact Radiology Diagnoses Pelvic pain Procedures Us Pelvis complete Scarlett Perez MD [address] [place] [address] Phone: tel: fax: [address] Phone: tel: fax: Referral ID Status Reason Start Date Expiration Date V isits Requested Visits Authorized [id number] Authorized 05/16/2025 05/16/2026 1 1 Reason for Visit * Reason Comments Follow-up Encounter Details Date Type Department Care Team (Late st Contact Info) Description 05/16/2025 3:00 PM EDT Office Visit [facility] [address] [place] [address] Scarlett Perez MD [address] [place] [address] Second hand smoke exposure (Primary Dx); Prediabetes; Facial swelling; Symptoms, such as flushing, sleeplessness, headache, lack of concentration, associated with the menopause; H/O thyroidectomy; Pelvic pain; Encounter for immunization Social History Tobacco Use Types Packs/Day Years [...] Answer Date Recorded Patient Health Questionnaire-9 Score 0 05/16/2025 Patient Health Questionnaire-9 Score 0 05/16/2025 Last PHQ-9: Questionnaire Data Not on file 1 Housing Stability Answer Date Recorded What is [...] Answer Date Recorded Patient Health Questionnaire-2 Score 0 05/16/2025 Internet Access Answer Date Recorded Internet Access [...] Sign Reading Time Taken Comments Blood Pressure 104/80 05/16/2025 2:52 PM EDT Pulse 70 05/16/2025 2:52 PM EDT Temperature 36.8 C (98.3 F) 05/16/2025 2:52 PM EDT Respiratory Rate 20 05/16/2025 2:52 PM EDT Oxygen Saturation 97% 05/16/2025 2:52 PM EDT Inhaled Oxygen Concentration - - Weight 75.1 kg (165 lb 9.6 oz) 05/16/2025 2:52 P M EDT Height 160 cm (5' 3 ) 05/16/2025 2:52 PM EDT Body Mass Index 29.33 05/16/2025 2:52 PM EDT documented in this encounter Functional Status * Over the past 2 weeks, how often have you been bothered by any of the following problems? Question Answer Date of Assessment Author Patient Health Questionnaire -2 Score 0 05/16/2025 3:13 PM EDT Priscilla Ely MA * Little interest or pleasure in doing things Answer Date of Assessment Author Not at all 05/16/2025 3:13 PM EDT Priscilla Ely MA * Feeling down, depressed, or hopeless Answer Date of Assessment Author Not at all 05/16/2025 3:13 PM EDT Priscilla Ely [place] * Trouble falling or staying asleep, or sleeping too much Answer Date of Assessment Author Not at all 05/16/2025 3:13 PM EDT Priscilla Ely [place] * Feeling tired or having little energy Answer Date of Assessment Author Not at all 05/16/2025 3:13 PM EDT Priscilla Ely MA * Poor appetite or overeating Answer Date of Assessment Author Not at all 05/16/2025 3:13 PM SMAT Priscilla Ely MA * Feeling bad about yourself - or that you are a failure or have let yourself or your family down Answer Date of Assessment Author Not at all 05/16/2025 3:13 PM EDT Priscilla Ely MA * Trouble concentrating on things, such as reading the newspaper or watching television Answer Date of Assessment Author Not at all 05/16/2025 3:13 PM EDT Priscilla Ely MA * Moving or speaking so slowly that other people could have noticed? Or the opposite - being so fidgety or restless that you have been moving around a lot more than usual. Answer Date of Assessment Author Not at all 05/16/2025 3:13 PM EDT Priscilla Ely MA * Thoughts that you would be better off or hurting yourself in some way Answer Date of Assessment Author Not at all 05/16/2025 3:13 PM EDT Priscilla Ely MA * Patient Health Questionnaire-9 Score Answer Date of Assessment Author 0 05/16/2025 3:13 PM Priscilla Oquendo MA * Over the last 2 weeks, how often have you been bothered by any of the following problems? Question Answer Date of Assessment Author Feeling nervous, anxious, or on edge 0 05/16/2025 3:13 PM EDT Priscilla Ely MA Not being able to stop or co ntrol worrying 0 05/16/2025 3:13 PM SAMT Priscilla Ely MA Worrying too much about diff erent things 0 05/16/2025 3:13 PM EDT Priscilla Ely MA Trouble relaxing 0 05/16/2025 3:13 PM EDT Priscilla Alexander MA Being so restless that it is hard to sit still 0 05/16/2025 3:13 PM EDT Priscilla Ely MA Becoming easily annoyed or irritable 0 05/16/2025 3:13 PM EDT Priscilla Ely MA Feeling afraid as if somethi ng awful might happen 0 05/16/2025 3:13 PM EDT Priscilla Ely MA MARIAH-7 Total Score 0 05/16/2025 3:13 PM EDT Priscilla Ely MA documented as of this encounter Plan of Treatment Scheduled Orders Name Type Priority Associated Diagnoses Orde r Schedule Hemoglobin A1c Lab Routine Pelvic pain Expected: 05/16/2025 (Approximate), Expires: 05/16/2026 FSH Lab Routine Pelvic pain Expected: 05/16/2025, Expires: 05/16/2026 LH Lab Routine Pelvic pain Expected: 05/16/2025 (Approximate), Expires: 05/16/2026 Estrogen, Total, Serum Lab Routine Pelvic pain Expected: 05/16/2025 (Approximate), Expires: 05/16/2026 Us Pelvis complete Imaging Routine Pelvic pain Expected: 05/16/2025, Expires: 05/16/2026 US OB Pelvis with Transvaginal Imaging Routine Pelvic pain Expected: 05/16/2025, Expires: 05/16/2026 documented as of this encounter Procedures Procedure Name Priority Date/Time Associated Diagnosis Comments XR CHEST 2 VIEWS Routine 05/17/2025 10:2 0 AM EDT Second hand smoke exposure POCT GLUCOSE Routine 05/16/2025 2:53 PM EDT Prediabetes documented in this encounter Results * XR Chest 2 Views (05/17/2025 10:20 AM EDT) Anatomical Region Laterality Modality Chest Radiographic Jen ging 05/17/2025 10:2 0 AM EDT Narrative 05/17/2025 10:29 AM EDT [address] [address] XRay Report Signed Patient: Bonnie Worthy MR#: [id number] : 1970 Acct:[id number] Age/Sex: 54 / F ADM Date: 05/17/25 Loc: .[facility] Attending Dr: Scarlett Perez MD Ordering Physician: Scarlett Perez Date of Service: 05/17/25 Procedure(s): XR chest 2V Accession Number(s): [id number] cc: Scarlett Perez Reason for Exam: feels choking, SOB, rib pain EXAMINATION: XR CHEST CLINICAL INFORMATION: feels choking, SOB, rib pain COMPARISON: None available. TECHNIQUE: 2 views of the chest were obtained. FINDINGS: Lungs: No focal consolidation or evidence of pulmonary edema. Pleura: No pleural effusion or pneumothorax. Heart/Mediastinum: Cardiomediastinal silhouette is within normal limits. Bones: No displaced rib fractures. XR/XR chest 2V IMPRESSION: No acute cardiopulmonary process. If clinical concern for rib fracture, consider dedicated radiographs of the ribs. Electronically signed by: Eliane Arriaga MD 05/17/2025 10:26 AM EDT RP Dictated By: Eliane Arriaga MD Signed By: <Electronically signed by Eliane Arriaga MD in OV> 05/17/25 1026 DD/ 1020 TD/TT: 05/17/25 1021 Manager Agency: Procedure Note Donotuseinterpreter, Image - 05/17/[address] [address] XRay Report Signed Patient: Silverio Worthy#: [id number] : 1970Acct:[id number] Age/Sex: 54 / FADM Date: 05/17/25 Loc: [facility] Attending Dr: Scarlett Perez MD Ordering Physician: Scarlett Perez Date of Service: 05/17/25 Procedure(s): XR chest 2V Accession Number(s): [id number] cc: Scarlett Perez Reason for Exam: feels choking, SOB, rib pain EXAMINATION: XR CHEST CLINICAL INFORMATION: feels choking, SOB, rib pain COMPARISON: None available. TECHNIQUE: 2 views of the chest were obtained. FINDINGS: Lungs: No focal consolidation or evidence of pulmonary edema. Pleura: No pleural effusion or pneumothorax. Heart/Mediastinum: Cardiomediastinal silhouette is within normal limits. Bones: No displaced rib fractures. XR/XR chest 2V IMPRESSION: No acute cardiopulmonary process. If clinical concern for rib fracture, consider dedicated radiographs of the ribs. Electronically signed by: Eliane Arriaga MD 05/17/2025 10:26 AM EDT RP Dictated By: Eliane Arriaga MD Signed By: <Electronically signed by Eliane Arriaga MD in [facility]> 05/17/25 1026 DD/ 1020 TD/TT: 05/17/25 1021 Manager Agency: Scarlett Perez MD IMG XR PROCEDURES Edited Resul t - Final * POCT Glucose (05/16/2025 2:53 PM EDT) Glucose Blood, POC 109 60 - 200 mg/dL [employer] Media Lot # [id number] Lot# Expiration Date Blood Capillary blood specimen / Unknown 05/16/2025 2:53 PM EDT Scarlett Perez MD POINT OF CARE TEST ENTER/EDIT ORDERABLES Final Result documented in this encounter Visit Diagnoses Diagnosis Second hand smoke exposure- Primary Accidental poisoning by second-hand tobacco smoke Prediabetes Other abnormal glucose Facial swelling Swelling, mass, or lump in head and neck Symptoms, such as flushing, sleeplessness, headache, lack of concentration, associated with the menopause H/O thyroidectomy Pelvic pain Encounter for immunization documented in this encounter Additional Health Concerns Assessment Noted Time PHQ-9 Depression Total Score: 0 05/16/20 25 3:13 PM EDT documented as of this encounter Care Teams Director Pharmaceutical Relationship Specialty Start Date End Date Scarlett Perez MD [address] [place] [id number] PCP - General Family Medicine 12/25/24 documented as of this encounter
--- NOTE | ~2025-05-17 | XR_ITS ---
EXAMINATION: XR CHEST CLINICAL INFORMATION: feels choking, SOB, rib pain COMPARISON: None available. TECHNIQUE: 2 views of the chest were obtained. FINDINGS: Lungs: No focal consolidation or evidence of pulmonary edema. Pleura: No pleural effusion or pneumothorax. Heart/Mediastinum: Cardiomediastinal silhouette is within normal limits. Bones: No displaced rib fractures. XR/XR chest 2V IMPRESSION: No acute cardiopulmonary process. If clinical concern for rib fracture, consider dedicated radiographs of the ribs. Electronically signed by: Eliane Arriaga MD 05/17/2025 10:26 AM EDT
--- OUTSIDE RECORDS SUMMARY | 2025-05-17 10:30 | XMS_ITS | Encounter Summary ---
Author Organization [employer] Address [address] [place] [address] Care Team Providers Care Log Brander Name Role Phone Scarlett Perez MD Primary Care Provider [phone] Reason for Visit * Reason Comments Acupuncture Encounter Details Date Type Department Care Team ([facility] Contact Info) Description 05/17/2025 10:30 AM EDT Office Visit [facility] [address] [place] [address] [phone] Arrived Social History Tobacco Use Types Packs/Day Years [...] as of this encounter Plan of Treatment Not on file documented as of this encounter Visit Diagnoses Not on filedocumented in this encounter Additional Health Concerns Assessment Noted Time PHQ-9 Depression Total Score: 0 05/16/20 25 3:13 PM EDT documented as of this encounter Care Teams Log Brander Relationship Specialty Start Date End Date Scarlett Perez MD [address] [place] [address] PCP - General Family Medicine 12/25/24 documented as of this encounter
--- OUTSIDE RECORDS SUMMARY | 2025-05-17 11:45 | XMS_ITS | Clinical Summary ---
Author Organization [employer] Address [address] [facility] [address] [place] [address] Care Team Providers Care Metal Turner Name Role Phone Scarlett Perez MD Primary Care Provider [phone] Allergies Active Allergy Reactions Criticality Noted Date Comments Fish Protein-Containing Drug Products 02/25/2024 Penicillin G 09/18/2024 Shellfish Allergy 12/26/2024 Medications * This document contains information received from the source organization and may not represent a complete record from that organization. cetirizine (ZyrTEC) 10 MG tabletIndications :Seasonal allergies TAKE 1 TABLET BY MOUTH ONCE DAILY 90 tablet 025 Active acetaminophen (Tylenol) 500 MG tablet Take 1 tablet (500 mg) by mouth every 6 (six) hours if needed for mild pain for up to 20 doses. 20 tablet 025 Active chlorhexidine (Peridex) 0.12 % solution Swish 15 mL morning and night for 1 minute. Spit, do not swallow. Do not eat or drink for 30 minutes following use. 473 mL 025 Active famotidine (Pepcid) 20 MG tabletIndications :Gastritis, presence of bleeding unspecified, unspecified chronicity, unspecified gastritis type Take 1 tablet (20 mg) by mouth 2 times daily. 60 tablet 11 025 2025 Active fluticasone (Flonase Allergy Relief) 50 MCG/ACT nasal spray Administer 1 spray into each nostril Once per day. Shake gently. Before first use, prime pump. After use, clean tip and replace cap. 16 g 12 025 2025 Active albuterol 108 (90 Base) MCG/ACT inhaler Inhale 2 puffs every 4 (four) hours if needed for wheezing or shortness of breath. 18 g 1 2025 Active Spacer/Aero-Holdi ng Chambers (OptiChamber Nicole) misc 1 each every 4 (four) hours if needed (asthma). 1 each Active lidocaine (Lidoderm) 5 % patch Apply 1 patch topically Once per day. Remove & discard patch within 12 hours or as directed by MD. 30 patch 2 2025 Active omeprazole (PriLOSEC) [address] capsule Take 20 mg by mouth Once per day. Active ibuprofen 600 MG tablet Take 1 tablet (600 mg) by mouth every 6 (six) hours if needed for mild pain for up to 20 doses. 20 tablet Active predniSONE (Deltasone) 20 MG tabletIndications :Facial swelling Take 1 tablet (20 mg) by mouth Once daily as needed (allergic reaction of skin swelling). 5 tablet Active PARoxetine (Paxil) 10 MG tabletIndications :Symptoms, such as flushing, sleeplessness, headache, lack of concentration, associated with the menopause Take 1 tablet (10 mg) by mouth in the morning. For menopause symtpoms 90 tablet 3 2025 Active levothyroxine (Synthroid) 100 MCG tabletIndications :H/O thyroidectomy Take 1 tablet (100 mcg) by mouth before breakfast. 90 tablet 3 2025 Active levothyroxine (Synthroid) 100 MCG tabletIndications :H/O thyroidectomy Take 1 tablet (100 mcg) by mouth before breakfast. 90 tablet 3 2024 Discontinued(R eorder (will not trigger notification to Pharmacy)) acetaminophen (Tylenol) 500 MG tablet Take 1 tablet (500 mg) by mouth every 6 (six) hours if needed for mild pain for up to 20 doses. 20 tablet 2024 Discontinued(T herapy completed) chlorhexidine (Peridex) 0.12 % solution Swish 15 mL morning and night for 1 minute. Spit, do not swallow. Do not eat or drink for 30 minutes following use. 473 mL 2024 Discontinued(T herapy completed) chlorhexidine (Peridex) 0.12 % solution Swish 15 mL morning and night for 1 minute. Spit, do not swallow. Do not eat or drink for 30 minutes following use. 473 mL 2024 Discontinued(T herapy completed) ibuprofen 600 MG tablet Take 1 tablet (600 mg) by mouth every 6 (six) hours if needed for mild pain for up to 20 doses. 20 tablet 2024 Discontinued(R eorder (will not trigger notification to Pharmacy)) diphenhydrAMINE (BENADryl) 25 MG tabletIndications :Rash,Seasonal allergies Take 1 tablet (25 mg) by mouth if needed at bedtime for itching or allergies. 30 tablet 1 2024 Discontinued predniSONE (Deltasone) 20 MG tabletIndications :Facial swelling Take 1 tablet (20 mg) by mouth Once daily as needed (allergic reaction of skin swelling). 5 tablet 2024 Discontinued(R eorder (will not trigger notification to Pharmacy)) PARoxetine (Paxil) 10 MG tabletIndications :Symptoms, such as flushing, sleeplessness, headache, lack of concentration, associated with the menopause Take 1 tablet (10 mg) by mouth in the morning. For menopause symtpoms 30 tablet 11 2024 Discontinued(R eorder (will not trigger notification to Pharmacy)) azithromycin (Zithromax) 250 MG tablet Take 2 tabs day and then 1 tab daily 6 tablet 2024 Discontinued(T herapy completed) pseudoephedrine (Sudafed) 30 MG tablet Take 1 tablet (30 mg) by mouth every 4 (four) hours if needed for congestion for up to 10 days. 30 tablet 2024 Discontinued(T herapy completed) predniSONE (Deltasone) 20 MG tablet Take 2 tablets (40 mg) by mouth Once per day for 5 days. 10 tablet 2024 tiZANidine (Zanaflex) 2 MG tablet Take 1 tablet (2 mg) by mouth every 6 (six) hours if needed for muscle spasms for up to 10 days. 30 tablet 025 2024 Discontinued(T herapy completed) ciprofloxacin-hyd rocortisone (Cipro HC Otic) otic suspension Administer 3 drops into each ear 2 times daily for 7 days. 10 mL 025 2024 ondansetron ODT (Zofran-ODT) 4 MG disintegrating tablet 025 2024 Discontinued(T herapy completed) Active Problems Problem Noted Date Diagnosed Date [...] Encounters Date Type Department Care Team Description 05/17/2025 10:30 AM EDT Office Visit [facility] MEDICINE [address] [place] [address] Arrived 05/17/2025 Travel 05/16/2025 3:00 PM EDT Office Visit [facility] MEDICINE [address] [place] [phone] Scarlett Perez MD Second hand smoke exposure (Primary Dx); Prediabetes; Facial swelling; Symptoms, such as flushing, sleeplessness, headache, lack of concentration, associated with the menopause; H/O thyroidectomy; Pelvic pain; Encounter for immunization 05/16/2025 Travel 05/15/2025 Telephone [facility] MEDICINE [address] [place] [phone] Scarlett Perez MD chart prep 05/03/2025 10:30 AM EDT Office Visit [facility] OPTOMETRY [address] [place] [phone] Serene Ellsworth, TRISHA Presbyopia (Primary Dx); Pterygium, right; Pinguecula of left eye; Combined forms of age-related cataract of both eyes 05/03/2025 Travel 04/24/2025 10:40 AM EDT Office Visit [facility] WALK-IN CENTER [address] [place] [phone] Scott Birmingham MD Chronic left shoulder pain (Primary Dx); Trigger ring finger of left hand; Influenza-like symptoms; Acute otitis externa of left ear, unspecified type 03/21/2025 Telephone [facility] [address] [place] [phone] Yuan Devine MD 03/01/2025 Results Follow-Up [facility] [address] [place] [phone] Yuan Devine MD CBC auto differential, C-reactive Protein, Sed Rate by Modified Westergren, Additional followed-up results: 2 02/22/2025 9:40 AM EDT Office Visit [facility] [address] [place] [phone] Yuan Devine MD RUQ abdominal pain (Primary Dx) 02/22/2025 Travel from Last 3 Months Immunizations Immunization Administration Dates Next Due Influenza, Recombinant, injectable, preservative free 04/18/2024 Influenza, seasonal, injectable, preservative fr ee 05/16/2025 Social History Tobacco Use Types Packs/Day Years Used Date Smoking Tobacco: Never Passive Smoke Exposure: Never Smokeless Tobacco: Never Tobacco Cessation:Counseling Given: Not Answered Alcohol Use Standard Drinks/Week Comments Not Currently [...] Mass Index 29.33 05/16/2025 2:52 PM EDT Plan of Treatment Health Maintenance Due Date Last Done Comments CT Colonography 1968 Colonoscopy 1968 Colorectal Cancer Screening 1968 FIT DNA/Cologuard 1968 FIT 1968 FOBT 1968 Sigmoidoscopy 1968 Hepatitis C Screening 1986 DTaP/Tdap/Td Vaccines (1 - Tdap) 10/27/1987 Hepatitis A Vaccines (1 of 2 - Risk 2-dose series) 10/27/1987 Hepatitis B Vaccines (1 of 3 - 19+ 3-dose series) 10/27/1987 Mammogram 2008 Pneumococcal Vaccine: 50+ Years (1 of 1 - PCV) 2018 Zoster Vaccines (1 of 2) 2018 Dental Prophylaxis 03/07/2025 09/06/2024 COVID-19 Vaccine (1 - 2023-2 5 season) 2025 Dental Oral Exam 04/22/2025 10/20/2024 Dental X-Ray: Bitewings 09/07/2025 09/06/2024 Diabetes: Hemoglobin A1C 09/25/2025 09/25/2024 Alcohol/Substance Use Screening 12/26/2025 12/26/2024 Disability Screening 12/26/2025 12/26/2024 SDOH Screening 12/26/2025 12/26/2024 Depression Screening 05/16/2026 05/16/2025, 05/16/2025 Tobacco Screening 05/16/2026 05/16/2025 Dental X-Ray: Full Mouth 09/07/2027 09/06/2024 RSV Patients and Patients Aged 60 years or older (1 - 1-dose 75+ series) 10/27/2043 HIV Screening Completed 02/25/2024 Influenza Vaccine Completed 05/16/2025, 04/18/2024 HIB Vaccines Aged Out No longer [...] GLUCOSE Routine 05/16/2025 2:53 PM EDT Prediabetes XR SHOULDER 2+ VIEWS LEFT Routine 04/24/2025 [...] 02/22/2025 10:20 AM EDT RUQ abdominal pain PERIODIC ORAL EVALUATION - ESTABLISHED PATIENT Routine 10/20/2024 11:00 AM EDT HEMOGLOBIN A1C Routine 09/25/2024 2:13 PM EDT Mixed hyperlipidemia PROPHYLAXIS - ADULT Routine 09/06/2024 1 1:00 AM EST INTRAORAL - COMPLETE SERIES OF RADIOGRAPHIC IMAGES Routine 09/06/2024 11:00 AM EST from Last 3 Months or Most Recently Relevant to Health Maintenance Results * XR Chest 2 Views (05/17/2025 10:20 AM EDT) Anatomical Region Laterality Modality Chest Radiographic Jen ging 05/17/2025 10:2 0 AM EDT Narrative 05/17/2025 10:29 AM EDT [place] [address] XRay Report Signed Patient: Bonnie Worthy MR#: [id number] : 1970 Acct:[id number] Age/Sex: 54 / F ADM Date: 05/17/25 Loc: HO.HHCL Attending Dr: Scarlett Perez MD Ordering Physician: Scarlett Perez Date of Service: 05/17/25 Procedure(s): XR chest 2V Accession Number(s): [id number] cc: Scarlett Perez Reason for Exam: feels [...] of the ribs. Electronically signed by: Eliane Arriaag MD 05/17/2025 10:26 AM EDT RP Dictated By: Eliane Arriaga MD Signed By: <Electronically signed by Eliane Arriaga MD in OV> 05/17/25 1026 DD/ 1020 TD/TT: 05/17/25 1021 Icing Machine Operator: Procedure Note Donotuseinterpreter, Image - 05/17/[address] [address] XRay Report Signed Patient: Silverio Worthy#: [id number] : 1970Acct:[id number] Age/Sex: 54 / FADM Date: 05/17/25 Loc: [facility] Attending Dr: Scarlett Perez MD Ordering Physician: Scarlett Perez Date of Service: 05/17/25 Procedure(s): XR chest 2V Accession Number(s): [id number] cc: Scarlett Perez Reason for Exam: feels [...] 05/17/25 1026 DD/ 1020 TD/TT: 05/17/25 1021 Icing Machine Operator: Scarlett Perez MD IMG XR PROCEDURES Edited Resul t - Final * POCT Glucose (05/16/2025 2:53 PM EDT) Glucose Blood, POC 109 60 - 200 mg/dL QC Media Lot # [id number] Lot# Expiration Date Blood Capillary blood specimen / Unknown 05/16/2025 2:53 PM EDT Scarlett Perez MD POINT OF CARE TEST ENTER/EDIT ORDERABLES Final Result * XR Shoulder 2+ Views Left (04/24/2025 12:17 PM EDT) Anatomical Region Laterality Modality Upper Extremities, Shoulder Left Radi ographic Imaging 04/24/2025 12:1 7 PM EDT Narrative 04/24/2025 12:24 [place] [address] XRay Report Signed Patient: Bonnie Worthy MR#: [id number] : 1970 Acct:[id number] Age/Sex: 54 / F ADM Date: 04/24/25 Loc: HO.HHCX Attending Dr: Scott Birmingham MD Ordering Physician: SCOTT BIRMINGHAM MD Date of Service: 04/24/25 Procedure(s): XR shoulder LT min 2V Accession Number(s): [id number] cc: SCOTT BIRMINGHAM MD Reason for Exam: [...] Rodriguez MD in OV> 04/24/25 1222 DD/ 16 TD/TT: 04/24/251216 Icing Machine Operator: Procedure Note Donotuseinterpreter, Image - 04/24/[address] [address] XRay Report Signed Patient: Silverio Worthy#: [id number] : 1970Acct:[id number] Age/Sex: 54 / FADM Date: 04/24/25 Loc: HO.HHCX Attending Dr: Scott Birmingham MD Ordering Physician: SCOTT BIRMINGHAM MD Date of Service: 04/24/25 Procedure(s): XR shoulder LT min 2V Accession Number(s): [id number] cc: SCOTT BIRMINGHAM MD Reason for Exam: [...] Rodriguez MD in OV> 04/24/25 1222 DD/ TD/TT: 04/24/251216 Icing Machine Operator: us Scott Birmingham MD IMG XR PROCEDURES Final Result * Influenza B (ID NOW Rapid Molecular) (04/24/2025 11:50 AM EDT) Pathologist [facility] Influenza B Negative Negative, Indeterminate [facility] Swab 04/24/2025 11:5 0 AM EDT us Scott Birmingham MD POINT OF CARE TEST ENTER/EDIT OR DERABLES Final Result Performing Organization Address City/[facility]/ZIP Co de Phone Number [facility] [address] [place] [phone] * Influenza A (ID NOW Rapid Molecular) (04/24/2025 11:50 AM EDT) [facility] Influenza A Negative Negative, Indeterminate [facility] Swab 04/24/2025 11:5 0 AM EDT us Scott Birmingham MD POINT OF CARE TEST ENTER/EDIT OR DERABLES Final Result Performing Organization Address [facility] Co de Phone Number [facility] [address] [place] [phone] * POCT Rapid COVID Ag (04/24/2025 11:50 AM EDT) Pathologist [facility] Rapid COVID Ag Negative [facility] Swab 04/24/2025 11:5 0 AM EDT us Scott Birmingham MD POINT OF CARE TEST ENTER/EDIT OR DERABLES Final Result Performing Organization Address [facility] Co de Phone Number [facility] [address] [place] [phone] * (ABNORMAL) CBC auto differential (02/22/2025 10:20 AM EDT) [facility] White Blood Count 5.2 4.8 - 10.8 X10*3/uL [facility] Red Blood Count 4.87 4.20 - 5.50 X10*6/uL [facility] Hemoglobin 13.7 12.0 - 16.0 g/dl [facility] Hematocrit 41.2 37.0 - 47.0 % [facility] Mean Corpuscular Volume 84.6 80.0 - 98.0 fL [facility] Mean Corpuscular Hemoglobin 28.1 27.0 - 33.0 pg [facility] Mean Corpuscular HGB Conc 33.3 31.0 - 35.0 g/dl [facility] Red Cell Distribution Width 13.2 11.0 - 16.0 % [facility] Platelet Count 371 160 - 400 X10*3/uL [facility] Mean Platelet Volume 10.1 9.4 - 12.3 fL [facility] Neutrophils Percent Auto 44.7(L) 45 - 73 % [facility] Imm Gran Pct Auto 0.4 0.0 - 0.4 % [facility] Lymphocytes Percent Auto 38.2 20 - 40 % [facility] Monocytes Percent Auto 9.4 2 - 11 % [facility] Eosinophils Percent Auto 6.7(H) 0 - 4 % [facility] Basophils Percent Auto 0.6 0 - 2 % [facility] NRBC Pct Auto 0.0 0.0 - 0.2 /100WBC [facility] Neutrophils Absolute Auto 2.3 2.0 - 8.3 x10*3/uL [facility] Imm Gran Abs Auto 0.02 0.00 - 0.03 X10*3/uL [facility] Lymphocytes Absolute Auto 2.0 1.2 - 4.9 X10*3/uL [facility] Monocytes Absolute Auto 0.5 0.1 - 1.2 X10*3/uL [facility] Eosinophils Absolute Auto 0.4 0.0 - 0.4 X10*3/uL [facility] Basophils Absolute Auto 0.0 0.0 - 0.2 X10*3/uL [facility] NRBC Abs Auto 0.000 0.0 - 0.012 X10*3/uL [facility] Blood Venous blood specimen / Unknown 02/22/2025 10:20 AM EDT 02/22/2025 11:25 AM EDT Yuan Devine MD LAB BLOOD ORDERABLES Final Resul t Performing Organization Address [facility] de Phone Number [facility] [address] [place] [phone] * (ABNORMAL) Celiac Disease Comprehensive Panel (02/22/2025 10:20 AM EDT) Immunoglobulin A, Qn, Serum 408(A) 47 - 310 mg/dL [facility] Comment:THIS TEST WAS PERFOR MED AT:[facility] [place] [phone] TERRY MD Transglutaminase IgA <1.0 U/mL [facility] Comment:Value Interpretation ----- <15.0 Antibody not detected> or = 15.0 Antibody detected Interpretation SEE NOTE [facility] Comment:No serological evide nce of celiac disease.Total serum IgA is elevated. Consider mucosalinflammatory conditions or underlying gammopathy. Blood Venous blood specimen / Unknown 02/22/2025 10:20 AM EDT 02/22/2025 11:25 AM EDT us Yuan Devine MD LAB BLOOD ORDERABLES Final Resul t Performing Organization Address [facility] Co de Phone Number [facility] [address] [place] [phone] * Sed Rate by Modified Satinderren (02/22/2025 10:20 AM EDT) Erythrocyte Sedimentation Rate 12 0 - 20 MM/HR [facility] Comment:Patients with polycy themia and many hemoglobin abnormalitiesmay have depressed sed rates whereas patients with anemiamay have elevated sed rates. Blood Venous blood specimen / Unknown 02/22/2025 10:20 AM EDT 02/22/2025 11:25 AM EDT us Yuan Devine MD LAB BLOOD ORDERABLES Final Resul t Performing Organization Address [facility] Co de Phone Number [facility] [address] [place] [place] [phone] * C-reactive Protein (02/22/2025 10:20 AM EDT) C Reactive Protein 0.10 < or = 0.50 mg/dL [facility] Blood Venous blood specimen / Unknown 02/22/2025 10:20 AM EDT 02/22/2025 11:25 AM EDT us Yuan Devine MD LAB BLOOD ORDERABLES Final Resul t Performing Organization Address [facility] de Phone Number [facility] [address] [place] [phone] * (ABNORMAL) Comprehensive Metabolic Panel (02/22/2025 10:20 AM EDT) Sodium 141 135 - 145 mmol/L [facility] Potassium 4.0 3.3 - 5.1 mmol/L [facility] Chloride 105 96 - 108 mmol/L [facility] Carbon Dioxide 30(H) 22 - 29 mmol/L [facility] Anion Gap 10(L) 12 - 20 [facility] Urea Nitrogen (BUN) 13 9 - 16 mg/dL [facility] Creatinine, Serum 0.63 0.5 - 1.4 mg/dL [facility] Estimated Glomerular Filt Rate >60 [facility] Comment:Chronic Kidney Disea se: Estimated GFR < 60 mL/min/[id number] Kidney Disease: Estimated GFR < 15 mL/min/1.73m2 Glucose 89 60 - 115 mg/dL [facility] Calcium 9.3 8.4 - 10.2 mg/dL [facility] Bilirubin, Total 1.4(H) 0.0 - 1.0 mg/dL [facility] Aspartate Amino Transferase 24 5 - 31 U/L [facility] Alanine Aminotransferase 22 0 - 31 U/L [facility] Total Protein 7.8 6.5 - 8.0 g/dL [facility] Albumin Level 4.5 3.5 - 5.0 g/dL [facility] Alkaline Phosphatase 85 39 - 117 U/L [facility] Blood Venous blood specimen / Unknown 02/22/2025 10:20 AM EDT 02/22/2025 11:25 AM EDT us Yuan Devine MD LAB BLOOD ORDERABLES Final Resul t Performing Organization Address [facility] de Phone Number [facility] [address] [place] [phone] * Hemoglobin A1c (09/25/2024 2:13 PM EDT) Hemoglobin A1c 5.7 <6.0 % [facility] Comment:Hemoglobin A1C Refer ence Range Adults: 4.8 - 6.0 % Non diabetic: < 6.0 % Goal: < 7.0 %Additional Action Suggested: > 8.0 %Note: Hemoglobin A1c results are invalid for patients with abnormal amounts of HbF. Blood transfusions may impact the HbA1c concentration in the patient sample. Estimated Average Glucose 117 mg/dL [facility] Comment:eAG = Estimated ave rage glucose which is %A1C expressed asaverage glucose, using the formula of the [id number] Glucose study (ADAG), Diabetes Care, Vol.31,#8,Aug. 2007 Blood Venous blood specimen / Unknown 09/25/2024 2:13 PM EDT 09/25/2024 4:00 PM EDT us Scarlett Perez MD LAB BLOOD ORDERABLES Final Res ult Performing Organization Address [facility] Co de Phone Number [facility] [address] [place] [phone] from Last 3 Months or Most Recently Relevant to Health Maintenance Insurance [facility] 2 HSN PARTIAL DENTAL - HSN FULL (MEDICAID) DENTAL-[facility] MEDICA[facility] LIMITED ADULT Care Teams Metal Turner Relationship Specialty Start Date End Date Scarlett Perez MD [address] [place] [address] PCP - General Family Medicine 12/25/24
--- OUTSIDE RECORDS SUMMARY | 2025-05-17 11:45 | XMS_ITS | Encounter Summary ---
Author Organization [employer] Address [address] [place] [address] Care Team Providers Care Sandwich Artist Name Role Phone Scarlett Perez MD Primary Care Provider [phone] Reason for Visit * Reason Onset Date Comments chart prep 05/15/2025 Encounter Details Date Type Department Care Team ([facility] st Contact Info) Description 05/15/2025 Telephone [facility] MEDICINE [address] [place], [place] [phone] Scarlett Perez MD [address] [place] [address] chart prep Social History Tobacco Use Types Packs/Day Years [...] the past 12 months, has t he [employer], gas, oil or water company threatened to [...] encounter Miscellaneous Notes * Telephone Encounter - Priscilla Ely MA - 05/15/2025 3:05 PM EDT Chart Prep Labs: done Images: done Referrals: complete Vaccines due: Covid, Flu, PCV20, Hep B, Hep A, Zoster, and DTAP Screenings: colonoscopy and mammogram Overdue care gaps: Glucose, PHQ-9, and MARIAH-7 documented in this encounter Plan of Treatment Not on file documented as of this encounter Visit Diagnoses Not on filedocumented in this encounter Additional Health Concerns Assessment Noted Time PHQ-9 Depression Total Score: 24 025 9:25 AM EDT documented as of this encounter Care Teams Sandwich Artist Relationship Specialty Start Date End Date Scarlett Perez MD [address] [place] [address] PCP - General Family Medicine 12/25/24 documented as of this encounter
--- OUTSIDE RECORDS SUMMARY | 2025-05-17 11:46 | XMS_ITS | Clinical Summary ---
Author Organization [facility] Address [address] [place] [address] Care Team Providers Care Communications Administrator Name Role Phone Robin Arriola NP Primary Care Provider [phone] Source Comments PLEASE NOTE, if this patient [...] sprayIndications:S easonal allergies,Need for vaccination Place 1 [place] in both nostrils once daily for 30 [...] 07/19/2024 04/18/2024 Diabetes Screening 02/24/2025 02/25/2024, 02/25/2024 [id number] ( season) 2025 Imm-Influenza (#1) 2025 04/18/2024 [...] TO FT4 1.39 0.40 - 4.50 mIU/L [employer] [facility] Comment: Reference Range > or = 20 Years 0.40-4.50 Ranges First trimester 0.26-2.66 Second trimester 0.55-2.73 Third trimester 0.43-2.91 Blood Blood / Unknown 04/19/2024 1 0:00 AM EDT 04/19/2024 10:01 AM EDT Narrative [employer] [facility] - 04/20/2024 6:34 AM EDT FASTING:NO us Trevon Ramirez DIVISION SUPERVISOR LAB - BLOOD DRAW Final Resul t [employer] [address] [address], [employer] [address] [address] * HIV 1/2 AG & AB W/RFLX (4TH GEN) (02/25/2024 10:05 AM EDT) HIV AG/AB, 4TH GEN NON-REAC TIVE NON-REAC TIVE [employer] Comment: HIV-1 antigen and HIV-1/HIV-2 antibodies were [...] purpose. For additional information please refer to http://education.FaceBuzz/faq/RPM595 (This link is being provided for informational/ educational purposes only.) The performance of this assay has not been clinically validated in patients less than 2 years old. Blood Blood / Unknown 02/25/2024 1 0:05 AM EDT 02/25/2024 10:05 AM EDT Narrative [employer] - 02/26/2024 8:37 AM EDT FASTING:YES Laura Mejia PA-C LAB - BLOOD DRAW Final Resul t [employer] [address] [place] [id number], [employer] [address] [place] [phone] * (ABNORMAL) HGA1C W/EAG (02/25/2024 10:05 AM EDT) Pathologist [facility] [place] HEMOGLOBIN A1C 6.0(H) <5.7 % of total Hgb [employer] Comment: For someone without known diabetes, a [...] diabetes for children. EAG (MG/DL) 126 mg/dL [employer] [facility] EAG (MMOL/L) 7.0 mmol/L [employer] [facility] Blood Blood / Unknown 02/25/2024 1 0:05 AM EDT 02/25/2024 10:05 AM EDT Narrative [employer] [facility] - 02/26/2024 8:37 AM EDT FASTING:YES Laura LANCASTERC LAB - BLOOD DRAW Edited Resu lt - Final [employer] [facility] [address] [address], [employer] [address] [address] * HEPATITIS PANEL W/RFLX (02/25/2024 10:05 AM EDT) HEPATITIS A IGM ANTIBODY NON-REACT ELLYN NON-REACT ELLYN [employer] [facility] COMMENT [employer] [facility] HEPATITIS B SURFACE ANTIGEN NON-REACT ELLYN NON-REACT ELLYN [employer] [facility] COMMENT [employer] [facility] HEPATITIS B CORE IGM ANTIBODY NON-REACT ELLYN NON-REACT ELLYN [employer] [facility] COMMENT [employer] [facility] HEPATITIS C ANTIBODY NON-REACT ELLYN NON-REACT ELLYN [employer] [facility] Comment: HCV antibody was non-reactive. There is no laboratory evidence of HCV infection. In most cases, no further action is required. However, if recent HCV exposure is suspected, a test for HCV RNA (test code 45207) is suggested. For additional information please refer to http://lucierna.FaceBuzz/faq/IZN79m9 (This link is being provided for informational/ educational purposes only.) Blood Blood / Unknown 02/25/2024 1 0:05 AM EDT 02/25/2024 10:05 AM EDT Narrative [facility] [facility] - 02/26/2024 8:37 AM EDT FASTING:YES For additional information, please refer to http://CogniK/faq/MSA271 (This link is being provided for informational/ educational purposes only.) For additional information, please refer to http://education.FaceBuzz/faq/EBM784 (This link is being provided for informational/ educational purposes only.) For additional information, please refer to http://lucierna.FaceBuzz/faq/MNW326 (This link is being provided for informational/ educational purposes only.) Laura Mejia PA-C LAB - BLOOD DRAW Final Resul t [employer] [facility] [address] [address], [employer] [facility] [address] [place] [address] * (ABNORMAL) LIPIDS W RFLX TO DIRECT LDL (02/25/2024 10:05 AM EDT) CHOLESTEROL, TOTAL 242(H) <200 mg/dL [employer] HDL CHOLESTEROL 71 > OR = 50 mg/dL [employer] [facility] TRIGLYCERIDES 140 <150 mg/dL [employer] [facility] LDL-CHOLESTEROL 145(H) 99 mg/dL (calc) [employer] [employer] [facility] Comment: Reference range: <100 Desirable range <100 mg/dL for primary prevention; <70 mg/dL for patients with CHD or diabetic patients with > or = 2 CHD risk factors. LDL-C is now calculated using the Rosas-Schuler calculation, which is a validated novel method providing better accuracy than the Friedewald equation in the estimation of LDL-C. Rosas GARCIA et al. TRUMAN. 2013;310(19): 3540-1408 (http://education.Yuntaa.[employer] Security/faq/GYE928) CHOL/HDLC RATIO 3.4 <5.0 (calc) [employer] [employer] [facility] NON-HDL CHOLESTEROL 171(H) <130 mg/dL (calc) [employer] [employer] [facility] Comment: For patients with diabetes plus 1 major ASCVD risk factor, treating to a non-HDL-C goal of <100 mg/dL (LDL-C of <70 mg/dL) is considered a therapeutic option. Blood Blood / Unknown 02/25/2024 1 0:05 AM EDT 02/25/2024 10:05 AM EDT Narrative [employer] [facility] - 02/26/2024 8:37 AM EDT FASTING:YES us Laura Mejia PA-C LAB - BLOOD DRAW Final Resul t [facility] [address] [address], [facility] [address] [place] [address] from Last 3 Months or Most Recently Relevant to Health Maintenance Insurance [place] MED[place] Care Teams Communications Administrator Relationship Specialty Start Date End Date Robin Arriola NP [address] [place] [address] PCP - General Family Medicine, GLASS POLISHER 05/11/24
--- OUTSIDE RECORDS SUMMARY | 2025-05-17 11:46 | XMS_ITS | Patient Health Record ---
Author Organization [facility] Address [address] [place], [place] [id number] Care Team Providers Care Unified Communications Engineer Name Role Phone MELVIN STORY Primary Care [...] Status Risk Notes Problem Chronic idiopathic constipation (29487712) Chronic idiopathic constipation (K59.04) Active confirmed Plan Of Treatment No Information Insurance Providers Payer Name Payer Address Payer Phone Subscriber Number Group Number Insured Name Patient Relationship to Insured Coverage Start Date Coverage End Date [facility] [address] [place] [address] [id number] Bonnie Jean Self - patient is the insured MEDICAID [address] [place] [address] [id number] Bonnie Jean Self - patient is the insured Medical (General) History Medical History History ICD Code hypothyroidism Surgical History Surgery Date(Month/Year) thyroidectomy
--- OUTSIDE RECORDS SUMMARY | 2025-05-17 11:46 | XMS_ITS | Encounter Summary ---
Author Organization [employer] Address [address] [facility] 7t [place] [address] Care Team Providers Care Whipped Topping Finisher Name Role Phone Scarlett Perez MD Primary Care Provider [phone] Reason for Visit * Reason Onset Date Comments Med Refill 09/27/2024 Encounter Details Date Type Department Care Team ([facility] st Contact Info) Description 09/27/[address] [facility] [address] [place], [place] [phone] Fermín Hernandez MD [address] [place] [address] Med Refill Social History Tobacco Use Types [...] 100 MCG tablet To be sent to: [facility] - [place], [place] - [address] [place] [address] documented in this encounter Plan of Treatment Not on file documented as of this encounter Visit Diagnoses Not on filedocumented in this encounter Care Teams Whipped Topping Finisher Relationship Specialty Start Date End Date Scarlett Perez MD [address] [place] [address] PCP - General Family Medicine 12/25/24 documented as of this encounter
--- OUTSIDE RECORDS SUMMARY | 2025-05-17 11:46 | XMS_ITS | Encounter Summary ---
Author Organization [employer] Address [address] [place] [address] Care Team Providers Care Web Services Professional Name Role Phone Scarlett Perez MD Primary Care Provider [phone] Encounter Details Date Type Department Care Team (Latest Contact Info) Description 05/17/2025 Travel Social History Tobacco Use Types Packs/Day [...] documented as of this encounter Care Teams Web Services Professional Relationship Specialty Start Date End Date Scarlett Perez MD [address] [place] [address] PCP - General Family Medicine 12/25/24 documented as of this encounter
--- OUTSIDE RECORDS SUMMARY | 2025-05-17 11:46 | XMS_ITS | Encounter Summary ---
Author Organization [employer] Address [address] 7[address] [place] [address] Care Team Providers Care Story Writer Name Role Phone Scarlett Perez MD Primary Care Provider [phone] Encounter Details Date Type Department Care Team (Latest Contact Info) Description 05/16/2025 Travel Social History Tobacco Use Types Packs/Day [...] AM EST documented as of this encounter Functional Status * Over the past 2 weeks, how often have you been bothered by any of the following problems? Question Answer Date of Assessment Author Patient Health Questionnaire -2 Score 0 05/16/2025 3:13 PM EDT Priscilla Ely [place] * Little interest or pleasure in doing things Answer Date of Assessment Author Not at all 05/16/2025 3:13 PM SAMT Priscilla Ely [place] * Feeling down, depressed, or hopeless Answer Date of Assessment Author Not at all 05/16/2025 3:13 PM Priscilla Oquendo [place] * Trouble falling or staying asleep, [...] Author Not at all 05/16/2025 3:13 PM Priscilla Oquendo [place] * Feeling bad about yourself - or that you are a failure or have let yourself or your family down Answer Date of Assessment Author Not at all 05/16/2025 3:13 PM Priscilla Oquendo [place] * Trouble concentrating on things, such [...] of Assessment Author 0 05/16/2025 3:13 PM EDT Priscilla Ely MA * Over the last 2 weeks, how often have you been bothered by any of the following problems? Question Answer Date of Assessment Author Feeling nervous, anxious, or on edge 0 05/16/2025 3:13 PM EDT Priscilla Ely [place] Not being able to stop or co ntrol worrying 0 05/16/2025 3:13 PM EDT Priscilla Ely [place] Worrying too much about [...] documented as of this encounter Care Teams Story Writer Relationship Specialty Start Date End Date Scarlett Perez MD [address] [place] [address] PCP - General Family Medicine 12/25/24 documented as of this encounter
[2025-05-18 04:39] LABS: Follicle Stimulating Hormone 49.0 mIU/mL
== END 2025-05-17 09:55 | disposition home or self-care (01) ==
LOC: HO.HHCL 09:54
PROVIDERS: PCP General Practice; Visit Provider General Practice
DX: R06.02 Shortness of breath (principal); R07.89 Other chest pain; R09.89 Other specified symptoms and signs involving the circulatory and respiratory systems; R10.20 Pelvic and perineal pain unspecified side; Z77.22 Contact with and (suspected) exposure to environmental tobacco smoke (acute) (chronic)
CPT/HCPCS: 36415; 71046; 82672; 83001; 83002; 83036

== ENCOUNTER → 2025-05-17 10:05 | Outpatient (BNV) | payer OTHER, SELFPAY | PROVIDERS: PCP General Practice; Visit Provider Radiology Body Imaging | DX: R06.02 Shortness of breath (principal); R07.89 Other chest pain | CPT/HCPCS: 71046 ==

== ENCOUNTER 2025-05-31 09:41 | Outpatient (AMB) | payer OTHER, SELFPAY ==
--- OUTSIDE RECORDS SUMMARY | 2025-05-29 09:15 | XMS_ITS | Encounter Summary ---
Author Organization [email or web address] Address [address] [facility] [address] [place] [address] Care Team Providers Care Network Systems Operator Name Role Phone Scarlett Perez MD Primary Care Provider [phone] Reason for Visit * Reason Comments Acupuncture Encounter Details Date Type Department Care Team ([facility] Contact Info) Description 05/29/2025 9:15 AM EST Office Visit [facility] [address] [place], [place] [phone] Sandra Allen MD [address] [place] [address] Chronic left shoulder pain (Primary Dx) Social History Tobacco Use Types Packs/Day Years [...] as of this encounter Progress Notes * Sandra Allen MD - 05/29/2025 9:15 AM EST Subjective Patient ID: Bonnie Worthy is a 54 y.o. female who presents for Acupuncture. Bonnie is here for acupuncture treatment #2 for left shoulder pain. She experienced some temporary pain reduction with the first treatment and plans to come a bit more frequently for maximum benefit. Review of Systems Musculoskeletal: Positive for arthralgias. Objective Physical Exam Constitutional: Appearance: Normal appearance. Skin: General: Skin is warm and dry. Neurological: Mental Status: She is alert and oriented to person, place, and time. Assessment/Plan Diagnoses and all orders for this visit: Chronic left shoulder pain Written consent obtained for ear acupuncture. Ears prepped with alcohol pad. Five ear points needled bilaterally: Sympathetic, Pederson Men, Kidney, Liver and Lung. Treatment duration: 30 minutes. Good hemostasis. Patient tolerated well. Follow up weekly for repeat acupuncture treatments as desired. documented in this encounter Plan of Treatment Not on file documented as of this encounter Visit Diagnoses Diagnosis Chronic left shoulder pain- Primary Pain in joint, shoulder region documented in this encounter Additional Health Concerns Assessment Noted Time PHQ-9 Depression Total Score: 0 05/16/20 3:13 PM EDT documented as of this encounter Care Teams Network Systems Operator Relationship Specialty Start Date End Date Scarlett Perez MD [address] [place] [address] PCP - General Family Medicine 12/25/24 documented as of this encounter
--- NOTE | 2025-05-31 09:55 | MHC.OFFVIS ---
Vital Signs 05/31/25 09:57 Height 5 ft 5 in Weight 162 lb BMI 27.0 BP 135/76 Blood Pressure Location Lt brachial Position Sitting Pulse 65 Intake Visit Reasons: Gastritis Intake Note: Patient new consult for Gastritis Patient cc: upper abdominal pain with chronic constipation, acid reflux and some swallowing difficulties and dizziness with vomit sensation. Passport Application Examiner Required: Yes Passport Application Examiner Name: [facility] Interpeter Accompanied by: Spouse Allergies amoxicillin Allergy (Intermediate, Verified 05/31/25 10:00) Rash seafood Allergy (Intermediate, Verified 05/31/25 10:25) Difficulty Breathing Medication List - Last Reconciled 05/31/25 by Candace Edwards, [place] docusate sodium 100 mg PO DAILY levothyroxine 100 mcg PO DAILY HPI HPI Gastritis: Details: Patient is a 54-year-old female with PMH of anxiety, depression, hyperlipidemia, prediabetes, status post thyroidectomy. Somewhat difficult HPI despite in-house to diplomatic interpreter/translator. Patient is accompanied by her . Pt reports a three-year hx of burning epigastric pain, described as a persistent burning sensation in the stomach, sometimes with a sensation of being poked forcefully. Pain is partially relieved by eating small amounts (e.g., bread), but relief is short-lived. Associated daily morning sour/bitter regurgitation and occasional dark taste in mouth. Reports episodic dysphagia, primarily with liquids, which began after thyroid surgery reportedly complicated by possible vocal cord injury. Constipation is significant, with BM typically 2x weekly, stools are hard and require effort; pt uses OTC fiber supplements and Colace, with greatest relief from stool softener, but notes strong, painful cramping and persistent bloating after defecation, without subjective sense of full evacuation. Pt cannot confirm blood in stool but is undergoing further screening. Notes passing dark stools, but unclear etiology (question of B12 use vs. melena). Additional sx include fatigue, wt gain, and perimenopausal changes. No prior or current hx of GI/colon/liver malignancy, but maternal aunt has gastric CA. No prior hx or current sx suggestive of upper/lower GI bleed, anemia, or urinary complaints. Diet is variable; pt reports inconsistent fiber and vegetable intake Ongoing management of hypothyroidism with levothyroxine, though pt feels current dose is inadequate. Patient denies: fever/chills, n/v, appetite changes, regurgitation, unintentional wt loss. Social hx: -denies ETOH use -denies recreational drug use -non-smoker, but regular exposure to 2nd-hand smoke. - family hx as below -denies personal hx of CA -tolerated anesthesia in the past without difficulty. PFSH Medical History (Updated 05/31/25 @ 11:05 by Candace Edwards CNP) Acquired hypothyroidism Colon cancer screening Dysphagia Epigastric pain Constipation Family History (Updated 05/31/25 @ 10:29 by Candace Edwards CNP) Maternal Aunt Stomach cancer Social History (Updated 05/31/25 @ 10:01 by Niesha Moreno) Household Members: Family Alcohol intake: never Patient Tobacco Use Status: Never used Tobacco Review of Systems Const Reports as per HPI ENT Reports as per HPI Card Reports as per HPI Resp Reports as per HPI GI Reports as per HPI Reports as per HPI Physical Exam Vital Signs: Last Vital Signs Pulse 65 05/31/25 09:57 BP 135/76 05/31/25 09:57 BMI result Body Mass Index 27.0 Const General: healthy appearing, no acute distress and well developed Nutritional Appearance: average body habitus Orientation/consciousness: patient oriented x3 HEENT Head: Yes normal to inspection, Yes normocephalic and Yes atraumatic Face and sinus: Yes normal facial exam Eyes General: appearance normal, both eyes and all related structures Neck Neck: Yes normal visual inspection Resp Effort & Inspection: normal respiratory effort, able to speak in complete sentences, no tracheal deviation and symmetric chest movement Cardio Jugular venous distension: no JVD GI Inspection: Yes normal to inspection, No distended and Yes obesity Palpation (GI): Soft to palpation, not firm, nontender and No hepatosplenomegaly present Auscultation: normal bowel sounds Neuro General: patient oriented x3 Gait exam (Neuro): Normal gait present Psych Appearance: grossly normal Mental Status: mental status grossly normal Speech and movement: Normal speech and movement present Affect: normal affect Attitude: cooperative Thought process: Normal thought process present Thought content: Normal thought content present Insight: Good insight present (Psych) Judgement: Good judgement present (Psych) Assessment & Plan Assessment & Plan (1) Constipation: Code(s): K59.00 - Constipation, unspecified Category: Medical Qualifiers: Constipation type: unspecified constipation type Qualified Code(s): K59.00 - Constipation, unspecified Plan: Infrequent, hard BM, incomplete evacuation, best response to stool softener, fails fiber/prunes; significant impact on QOL; no alarm symptoms for obstruction. Additional Testing: -CBC, TSH (labs Aug normal; if persistent issues, repeat) -colonoscopy planned to review at next visit -will consider abdominal films or transit study if further refractory. Medication Management: Begin daily lactulose, titrate to effect; discontinue Colace if cramping persists; continue fiber supplement; avoid agents that worsen constipation. Lifestyle Recommendations: Increase daily fiber (vegetables/fruits/beans); maintain adequate hydration; regular exercise; structured meal pattern to support gut motility. Follow-Up: 8 weeks to reassess response; prior to colonoscopy; sooner if sx worsen. (2) Epigastric pain: Code(s): R10.13 - Epigastric pain Category: Medical Plan: Longstanding daily burning, regurgitation, partial meal relief, hx negative H. pylori, unclear response to current empiric acid suppression. Additional Testing: Upper endoscopy planned; review/confirm current acid suppressant; stool testing not required if proceeding to endoscopy; repeat H. pylori only if guidelines indicate. Medication Management: Continue current reflux tx until clarified; withhold new PPI/H2RA until med list confirmed; may adjust/switch/add agent after med reconciliation. Lifestyle Recommendations: Avoid late/evening meals; elevation HOB, avoid trigger foods/beverages (caffeine, acidic foods); consistent meal timing; maintain healthy weight. Follow-Up: 8 weeks or earlier prn; med adjustment after med reconciliation. (3) Dysphagia: Code(s): R13.10 - Dysphagia, unspecified Category: Medical Qualifiers: Dysphagia type: unspecified Qualified Code(s): R13.10 - Dysphagia, unspecified Plan: Intermittent, especially liquids, onset post-thyroidectomy; possible vocal cord injury per pt; no solids impaction or aspiration reported. -Additional Testing: -Upper endoscopy to evaluate for stricture -will discuss barium swallow at next visit Medication Management: None at present. Lifestyle Recommendations: Swallow precautions, slow eating/drinking. (4) Colon cancer screening: Code(s): Z12.11 - Encounter for screening for malignant neoplasm of colon Category: Medical Plan: Age-appropriate, chronic constipation, family hx (aunt with gastric CA), incomplete prior stool-based screening; defers stool test in favor of colonoscopy. Additional Testing: Screening colonoscopy planned; upper endoscopy to evaluate for upper GI neoplasia/ulceration. Medication Management: N/A. Lifestyle Recommendations: As above (constipation). Follow-Up: Pre-colonoscopy consult. (5) Acquired hypothyroidism: Code(s): E03.9 - Hypothyroidism, unspecified Category: Medical Plan: Persistent fatigue, patient-reported lack of improvement, possible relationship to constipation. Additional Testing: Recommend TSH/free T4 recent repeat, consider endocrinology consult; monitor wt. Medication Management: Re-evaluate dosing in conjunction with labs and sxs. Lifestyle Recommendations: Adherence to prescribed dosing; avoid OTCs/supplements interfering with absorption. Follow-Up: Coordinate with PCP/weed sprayer. Plan Follow-up 8 weeks or sooner as needed Time: I spent a total of 50 minutes on the date of encounter which includes: Preparing to see the patient (reviewed previous documentation, test results and medical history) Performing a medically appropriate exam and/or evaluation Ordering medications, tests, and procedures Documenting clinical information in the health record Medications: New lactulose 10 grams (15 mL) PO DAILY 3,785 mL 1RF Coding Level of Care Code New Pt New Pt Level 5 (85098) Patient Type New Diagnoses Constipation, unspecified constipation type K59.00 Constipation type: unspecified constipation type Epigastric pain R10.13 Dysphagia, unspecified type R13.10 Dysphagia type: unspecified Colon cancer screening Z12.11 Acquired hypothyroidism E03.9
[2025-05-31 09:57] VITALS: BP 135/76; PULSE 65; BMI 27.0
--- OUTSIDE RECORDS SUMMARY | 2025-05-31 11:12 | XMS_ITS | Patient Health Record ---
Author Organization [facility] Address [address] [place] [phone] Care Team Providers Care Pharmacist In Charge Owner Name Role Phone MELVIN STORY Primary Care Provider UnavailRuperto Boykin Unavailable Unavailable Allergies No Known Allergies Reason For Referral No Information Medications Medication SIG (Take, Route, Frequency, Duration) Notes Start Date End Date Status Claritin 10 MG Tablet Chewable 1 tablet Orally Once a day Active Azithromycin 250 MG Tablet as directed Orally Active Clindamycin HCl 300 MG Capsule 2 capsules Orally every 8 hrs Active Colace 100 MG Capsule 1 capsule Orally T wice a day; Duration: 30 day(s) 03/28/2022 Active Levothyroxine Sodium 25 MCG Tablet 1 tablet in the morning on an empty stomach Orally Once a day Active Docusate Sodium 100 MG Tablet 1 tablet as needed Orally Once a day Active Atorvastatin Calcium 10 MG Tablet 1 tablet Orally Once a day Active Social History Tobacco Use: Social History Observation Description Date Details (start date - stop date) Never Smoker NA - NA Social History Drugs/Alcohol: Social Info Question Answer Notes Alcohol Screen Did you have a drink containing alcohol in the past year? Yes How often did you have a drink containing alcohol in the past year? 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 Problems Problem Type SNOMED Code ICD Code Onset Dates Problem Status W/U Status Risk Notes Problem Chronic idiopathic constipation (76536163) Chronic idiopathic constipation (K59.04) Active confirmed Plan Of Treatment No Information Insurance Providers Payer Name Payer Address Payer Phone Subscriber Number Group Number Insured Name Patient Relationship to Insured Coverage Start Date Coverage End Date [facility] [address] [place] [address] [id number] Bonnie Jean Self - patient is the insured MEDICAID [address] [place] [address] [id number] Bonnie Jean Self - patient is the insured Medical (General) History Medical History History ICD Code hypothyroidism Surgical History Surgery Date(Month/Year) thyroidectomy
--- OUTSIDE RECORDS SUMMARY | 2025-05-31 11:12 | XMS_ITS | Encounter Summary ---
Author Organization [employer] Address [address] [facility] [address] [place] [address] Care Team Providers Care Backend Tester Name Role Phone Scarlett Perez MD Primary Care Provider [phone] Reason for Visit * Reason Onset Date Comments telephone call 05/29/2025 Encounter Details Date Type Department Care Team ([facility] st Contact Info) Description 05/29/2025 Telephone [facility] MEDICINE [address] [place], [place] [phone] Scarlett Perez MD [address] [place] [address] telephone call Social History Tobacco Use Types Packs/Day Years [...] encounter Miscellaneous Notes * Telephone Encounter - Linda Coello RN - 05/29/2025 3:32 PM EST TC placed to patient [phone] in regards to below message. Patient did not answer, RN left requesting CB to red team nurses. Patient to f/u PRN for WNL BW results. * Telephone Encounter - Scarlett Perez MD - 05/29/2025 3:05 PM EST I placed the order for 5% lidocaine ointment for the patient. Her final labs just resulted as well,and her hormones are consistent with post menopause, nothing abnormal or outside of the expected. * Telephone Encounter - Linda Coello RN - 05/29/2025 2:52 PM EST TC placed to patient [phone] via [employer] (#[id number]) in regards to below message. Patient advised mammo was ordered on 09/25/2024 and patient should contact [facility] at [phone] to schedule mammogram. Patient verbalized understanding and reports she will call them to schedule. Patient advised in regards to lidocaine patches, the pharmacy reports lidocaine 5% ointment is $8 OOP compared to $40 OOP instead of lidocaine patches. Patient informed RN will send message to PCP to send prescription for lidocaine ointment instead. Patient verbalized understanding. Patient to f/u PRN. * Telephone Encounter - Charlotte Figueroa - 05/29/2025 10:30 AM EST Pt walked in stating she was waiting for a referral for a mammogram but she hasn't received anything yet and I didn't see any referral for this. She is also is requesting If her medication for the lidocaine patch if pcp can prescribe a different type because she said the last time she had to pick them up from the pharmacy she had to pay for them. documented in this encounter Plan of Treatment Not on file documented as of this encounter Visit Diagnoses Not on filedocumented in this encounter Additional Health Concerns Assessment Noted Time PHQ-9 Depression Total Score: 0 05/16/20 25 3:13 PM EDT documented as of this encounter Care Teams Backend Tester Relationship Specialty Start Date End Date Scarlett Perez MD [address] [place] [phone] PCP - General Family Medicine 12/25/24 documented as of this encounter
--- OUTSIDE RECORDS SUMMARY | 2025-05-31 11:12 | XMS_ITS | Encounter Summary ---
Author Organization [employer] Address [address] 7[address] [place] [address] Care Team Providers Care Signal Operator Linguist Name Role Phone Scarlett Perez MD Primary Care Provider [phone] Encounter Details Date Type Department Care Team (Latest Contact Info) Description 05/29/2025 Travel Social History Tobacco Use Types Packs/Day [...] documented as of this encounter Care Teams Signal Operator Linguist Relationship Specialty Start Date End Date Scarlett Perez MD [address] [place] [address] PCP - General Family Medicine 12/25/24 documented as of this encounter
--- OUTSIDE RECORDS SUMMARY | 2025-05-31 11:12 | XMS_ITS | Encounter Summary ---
Author Organization [employer] Address [address] [facility] 7t [place] [address] Care Team Providers Care Cherry Dipper Name Role Phone Scarlett Perez MD Primary Care Provider [phone] Reason for Referral * Imaging (Routine) - Authorized Specialty Diagnoses / [facility] To Contact Radiology Diagnoses Pelvic pain Procedures US Pelvis Transvaginal Scarlett Perez MD [address] [place] [address] Phone: tel: fax: [address] Phone: tel: fax: Referral ID Status Reason Start Date Expiration Date V isits Requested Visits Authorized [id number] Authorized 05/25/2025 05/25/2026 1 1 Encounter Details Date Type Department Care Team (Late st Contact Info) Description 05/25/2025 Orders Only [facility] MEDICINE [address] [place], [place] [phone] Scarlett Perez MD [address] [place] [address] Pelvic pain (Primary Dx) Social History Tobacco Use [...] Type Priority Associated Diagnoses Orde r Schedule US Pelvis Transvaginal Imaging Routine Pelvic pain Expected: 05/25/2025, Expires: 05/25/2026 documented as of this encounter Visit Diagnoses Diagnosis Pelvic pain- Primary documented in this encounter Additional Health Concerns Assessment Noted Time PHQ-9 Depression Total Score: 0 05/16/20 3:13 PM EDT documented as of this encounter Care Teams Cherry Dipper Relationship Specialty Start Date End Date Scarlett Perez MD [address] [place] [phone] PCP - General Family Medicine 12/25/24 documented as of this encounter
--- OUTSIDE RECORDS SUMMARY | 2025-05-31 11:12 | XMS_ITS | Clinical Summary ---
Author Organization [email or web address] Address [address] [facility] 7t [place] [address] Care Team Providers Care Junior Mechanical Engineer Name Role Phone Scarlett Perez MD Primary Care Provider [phone] Allergies Active Allergy Reactions Criticality Noted Date [...] or shortness of breath. 18 g 1 025 2025 Active Spacer/Aero-Holdi ng Chambers (OptiChamber Nicole) misc 1 each every 4 (four) hours if needed (asthma). 1 each Active omeprazole (PriLOSEC) [address] capsule Take 20 mg by mouth Once per day. Active ibuprofen 600 MG tabletIndications :Pelvic pain Take 1 tablet (600 mg) by mouth every 6 (six) hours if needed for mild pain for up to 20 doses. 20 tablet Active predniSONE (Deltasone) 20 MG tabletIndications :Facial swelling Take 1 tablet (20 mg) by mouth Once daily as needed (allergic reaction of skin swelling). 5 tablet Active levothyroxine (Synthroid) 100 MCG tabletIndications :H/O thyroidectomy Take 1 tablet (100 mcg) by mouth before breakfast. 90 tablet 3 025 2025 Active lidocaine (Xylocaine) 5 % ointment Apply topically if needed in the morning, at noon, and at bedtime (pain). 30 g 3 025 2025 Active levothyroxine (Synthroid) 100 MCG tabletIndications :H/O thyroidectomy Take 1 tablet (100 mcg) by mouth before breakfast. 90 tablet 3 025 2024 Discontinued(R eorder (will not trigger notification [...] 30 minutes following use. 473 mL 025 2024 Discontinued(T herapy completed) chlorhexidine (Peridex) 0.12 [...] days. 30 tablet 2024 Discontinued(T herapy completed) tiZANidine (Zanaflex) 2 MG tablet Take 1 tablet (2 mg) by mouth every 6 (six) hours if needed for muscle spasms for up to 10 days. 30 tablet 2024 Discontinued(T herapy completed) lidocaine (Lidoderm) 5 % patch Apply 1 patch topically Once per day. Remove & discard patch within 12 hours or as directed by MD. 30 patch 2 2024 Discontinued(C ost of medication) ciprofloxacin-hyd rocortisone (Cipro HC Otic) otic suspension Administer 3 drops into each ear 2 times daily for 7 days. 10 mL 025 2024 ondansetron ODT (Zofran-ODT) 4 MG disintegrating tablet 025 2024 Discontinued(T herapy completed) PARoxetine (Paxil) 10 MG tabletIndications :Symptoms, such as flushing, sleeplessness, headache, lack of concentration, associated with the menopause Take 1 tablet (10 mg) by mouth in the morning. For menopause symtpoms 90 tablet 3 025 2024 Discontinued(S madeline effects) Active Problems Problem Noted Date Diagnosed Date [...] Encounters Date Type Department Care Team Description 05/29/2025 9:15 AM EST Office Visit [address] [address] Sandra Allen MD Chronic left shoulder pain (Primary Dx) 05/29/[address] [address] Scarlett Perez MD telephone call 05/29/2025 Travel 05/25/2025 Orders Only [facility] MEDICINE [address] [place] [phone] Scarlett Perez MD Pelvic pain (Primary Dx) 05/25/2025 Telephone [facility] [address] [place] [address] Scarlett Perez MD 05/24/[address] [address] Scarlett Perez MD Medication Question 05/22/[address] [address] Scarlett Perez MD 05/17/2025 10:30 AM EDT Office Visit [address] [address] Sandra Allen MD Chronic left shoulder pain (Primary Dx) 05/17/2025 Travel 05/16/2025 3:00 PM EDT Office Visit [address] [address] Scarlett Perez MD Prediabetes (Primary Dx); Facial swelling; Second hand smoke exposure; Symptoms, such as flushing, sleeplessness, headache, lack of concentration, associated with the menopause; H/O thyroidectomy; Pelvic pain; Encounter for immunization; Screening for colon cancer; Vocal cord dysfunction 05/16/2025 Travel 05/15/2025 Telephone [facility] [address] [place] [address] Scarlett Perez MD chart prep 05/03/2025 10:30 AM EDT Office Visit [facility] [address] [place] [phone] Serene Ellsworth, OD Presbyopia (Primary Dx); Pterygium, right; Pinguecula of left eye; Combined forms of age-related cataract of both eyes 05/03/2025 Travel 04/24/2025 10:40 AM EDT Office Visit [facility] [address] [place] [address] Scott Birmingham MD Chronic left shoulder pain (Primary Dx); Trigger ring finger of left hand; Influenza-like symptoms; Acute otitis externa of left ear, unspecified type 03/21/2025 Telephone [facility] [address] [place] [address] Yuan Devine MD 03/01/2025 Results Follow-Up [facility] [address] [place] [address] Yuan Devine MD CBC auto differential, C-reactive Protein, Sed Rate by Modified Westergren, Additional followed-up results: 2 from Last 3 Months Immunizations Immunization Administration [...] Years (1 of 1 - PCV) 2018 RSV Patients and Patients Aged 60 years or older (1 - Risk 50-74 years 1-dose series) 2018 Zoster Vaccines (1 of 2) 2018 Dental Prophylaxis 03/07/2025 09/06/2024 COVID-19 Vaccine (1 - 2024-2 6 season) 2025 Dental Oral Exam 04/22/2025 10/20/2024 Dental X-Ray: Bitewings 09/07/2025 09/06/2024 Alcohol/Substance Use Screening 12/26/2025 12/26/2024 Disability Screening 12/26/2025 12/26/2024 SDOH Screening 12/26/2025 12/26/2024 Depression Screening 05/16/2026 05/16/2025, 05/16/2025 Tobacco Screening 05/16/2026 05/16/2025 Diabetes: Hemoglobin A1C 05/17/2026 025, 09/25/2024 Dental X-Ray: Full Mouth 09/07/2027 09/06/2024 HIV Screening Completed 02/25/2024 Influenza Vaccine Completed [...] 0 AM EDT Second hand smoke exposure ESTROGEN, TOTAL, SERUM Routine 05/17/2025 9:58 AM EDT Pelvic pain LH Routine 05/17/2025 9:58 AM EDT Pelvic pain FSH Routine 05/17/2025 9:58 AM EDT Pelvic pain HEMOGLOBIN A1C Routine 05/17/2025 9:58 AM EDT Pelvic pain POCT GLUCOSE Routine 05/16/2025 2:53 PM EDT Prediabetes XR SHOULDER 2+ VIEWS LEFT Routine 04/24/2025 12:17 PM EDT Chronic left shoulder pain POCT INFLUENZA B (ID NOW RAPID MOLECULAR) Routine 04/24/2025 11:50 AM EDT Influenza-like symptoms POCT INFLUENZA A (ID NOW RAPID MOLECULAR) Routine 04/24/2025 11:50 AM EDT Influenza-like symptoms POCT RAPID COVID ANTIGEN Routine 04/24/2025 11:50 AM EDT Influenza-like symptoms PERIODIC ORAL EVALUATION - ESTABLISHED PATIENT Routine 10/20/2024 11:00 AM EDT PROPHYLAXIS - ADULT Routine 09/06/2024 1 1:00 AM EST INTRAORAL - COMPLETE SERIES OF RADIOGRAPHIC IMAGES Routine 09/06/2024 11:00 AM EST from Last 3 Months or Most Recently Relevant to Health Maintenance Results * XR Chest 2 Views (05/17/2025 10:20 AM EDT) Anatomical Region Laterality Modality Chest Radiographic Jen ging 05/17/2025 10:2 0 AM EDT Narrative 05/17/2025 10:29 AM EDT [address] [address] XRay Report Signed Patient: Bonnie Worthy MR#: [id number] : 1970 Acct:[id number] Age/Sex: 54 / F ADM Date: 05/17/25 Loc: [facility] Attending Dr: Scarlett Perez MD Ordering Physician: Scarlett Perez Date of Service: 05/17/25 Procedure(s): XR chest 2V Accession Number(s): [id number] cc: Scarlett Perez Reason for Exam: feels [...] Eliane Arriaga MD 05/17/2025 10:26 AM EDT Dictated By: Eliane Arriaga MD Signed By: <Electronically signed by Elinae Arriaga MD in OV> 05/17/25 1026 DD/ 1020 TD/TT: 05/17/25 1021 Assurance Officer: Procedure Note Donotuseinterpreter, Image - 05/17/2025 [place] [address] XRay Report Signed Patient: Silverio Worthy#: [id number] : 1970Acct:[id number] Age/Sex: 54 / FADM Date: 05/17/25 Loc: [facility] Attending Dr: Scarlett Perez MD Ordering Physician: Scarlett Perez Date of Service: 05/17/25 Procedure(s): XR chest 2V Accession Number(s): [id number] cc: Scarlett Perez Reason for Exam: feels [...] 05/17/25 1026 DD/ 1020 TD/TT: 05/17/25 1021 Assurance Officer: Scarlett Perez MD IMG XR PROCEDURES Edited Resul t - Final * Estrogen, Total, Serum (05/17/2025 9:58 AM EDT) Estrogen, Total, Serum 37 pg/mL [facility] Comment:Reference Ranges for Total Estrogen: Follicular Phase: 51-601 Luteal Phase: 87-1194 Postmenopausal: < or = 214THIS TEST WAS PERFORMED AT:[employer] [id number] [facility] [place] [address]HFHUGJOSE ASH MD,PHD,MERA Blood Venous blood specimen / Unknown 05/17/2025 9:58 AM EDT 05/17/2025 11:30 AM EDT Scarlett Perez MD LAB BLOOD ORDERABLES Final Res ult [facility] [address] [place] [phone] [phone] * Hemoglobin A1c (05/17/2025 9:58 AM EDT) Hemoglobin A1c 6.0 <6.0 % [facility] Comment:Hemoglobin A1C Refer ence Range Adults: 4.8 - 6.0 % Non diabetic: < 6.0 % Goal: < 7.0 %Additional Action Suggested: > 8.0 %Note: Hemoglobin A1c results are invalid for patients with abnormal amounts of HbF. Blood transfusions may impact the HbA1c concentration in the patient sample. Estimated Average Glucose 126 mg/dL [facility] Comment:eAG = Estimated ave rage glucose which is %A1C expressed asaverage glucose, using the formula of the [id number] Glucose study (ADAG), Diabetes Care, Vol.31,#8,2007 Blood Venous blood specimen / Unknown 05/17/2025 9:58 AM EDT 05/17/2025 11:30 AM EDT Scarlett Perez MD LAB BLOOD ORDERABLES Final Res ult Performing Organization Address [facility] Co de Phone Number [facility] [address] [place] [phone] * LH (05/17/2025 9:58 AM EDT) Lutenizing Hormone 31.9 mIU/mL [facility] Comment:Reference Range Foll icular Phase 1.9-12.5 Mid-Cycle Peak 8.7-76.3 Luteal Phase 0.5-16.9 Postmenopausal 10.0-54.7THIS TEST WAS PERFORMED AT:[email or web address] [place] [phone] TERRY MD Blood Venous blood specimen / Unknown 05/17/2025 9:58 AM EDT 05/17/2025 11:30 AM EDT us Scarlett Perez MD LAB BLOOD ORDERABLES Final Res ult Performing Organization Address [facility] Co de Phone Number [facility] [address] [place] [phone] * FSH (05/17/2025 9:58 AM EDT) Follicle Stimulating Hormone 49.0 mIU/mL [facility] Comment:Reference Range Foll icular Phase 2.5-10.2 Mid-cycle Peak 3.1-17.7 Luteal Phase 1.5- 9.1 Postmenopausal 23.0-116.3THIS TEST WAS PERFORMED AT:[email or web address] [place] [phone] TERRY MD Blood Venous blood specimen / Unknown 05/17/2025 9:58 AM EDT 05/17/2025 11:30 AM EDT Scarlett Perez MD LAB BLOOD ORDERABLES Final Res ult [facility] [address] [place] [phone] * POCT Glucose (05/16/2025 2:53 PM EDT) [facility] Signature Glucose Blood, POC 109 60 - 200 [...] PM EDT Narrative 04/24/2025 12:24 PM EDT [facility] [address] [place] [address] XRay Report Signed Patient: Bonnie Worthy MR#: [id number] : 1970 Acct:[id number] Age/Sex: 54 / F ADM Date: 04/24/25 Loc: [facility] Attending Dr: Scott Birmingham MD Ordering Physician: SCOTT BIRMINGHAM MD Date of Service: 04/24/25 Procedure(s): XR shoulder LT min 2V Accession Number(s): [id number] cc: SCOTT BIRMINGHAM MD Reason for Exam: [...] 04/24/25 1222 DD/ 1217 TD/TT: 04/24/25 1217 Assurance Officer: Procedure Note Donotuseinterpreter, Image - 04/24/[address] [address] XRay Report Signed Patient: Silverio Worthy#: [id number] : 1970Acct:[id number] Age/Sex: 54 / FADM Date: 04/24/25 Loc: [facility] Attending Dr: Scott Birmingham MD Ordering Physician: SCOTT BIRMINGHAM MD Date of Service: 04/24/25 Procedure(s): XR shoulder LT min 2V Accession Number(s): [id number] cc: SCOTT BIRMINGHAM MD Reason for Exam: [...] 04/24/25 1222 DD/ 1217 TD/TT: 04/24/25 1217 Assurance Officer: us Scott Birmingham MD IMG XR PROCEDURES Final Result * Influenza B (ID NOW Rapid Molecular) (04/24/2025 11:50 AM EDT) [facility] Influenza B Negative Negative, Indeterminate [facility] Swab 04/24/2025 11:5 0 AM EDT us Scott Birmingham MD POINT OF CARE TEST ENTER/EDIT OR DERABLES Final Result Performing Organization Address [facility] Co de Phone Number [facility] [address] [place] [address] [phone] * Influenza A (ID NOW Rapid Molecular) (04/24/2025 11:50 AM EDT) [facility] Influenza A Negative Negative, Indeterminate [facility] Swab 04/24/2025 11:5 0 AM EDT us Scott Birmingham MD POINT OF CARE TEST ENTER/EDIT OR DERABLES Final Result Performing Organization Address [facility] Co de Phone Number [facility] [address] [place] [phone] * POCT Rapid COVID Ag (04/24/2025 11:50 AM EDT) Rapid COVID Ag Negative [facility] Swab 04/24/2025 11:5 0 AM EDT Scott Birmingham MD POINT OF CARE TEST ENTER/EDIT OR DERABLES Final Result [facility] [address] [place] [address] [phone] from Last 3 Months Insurance [facility] 2 HSN PARTIAL DENTAL - HSN FULL (MEDICAID) DENTAL-[facility] MEDICAID LIMITED ADULT Care Teams Junior Mechanical Engineer Relationship Specialty Start Date End Date Scarlett Perez MD [address] [place] [phone] PCP - General Family Medicine 12/25/24
--- OUTSIDE RECORDS SUMMARY | 2025-05-31 11:12 | XMS_ITS | Encounter Summary ---
Author Organization [employer] Address [address] [facility] [place] [address] Care Team Providers Care Cloud Systems Administrator Name Role Phone Scarlett Perez MD Primary Care Provider [phone] Reason for Visit * Reason Onset Date Comments Medication Question 05/24/2025 Encounter Details Date Type Department Care Team ([facility] st Contact Info) Description 05/24/2025 Telephone [facility] MEDICINE [address] [place], [place] [phone] Scarlett Perez MD [address] [place] [address] Medication Question Social History Tobacco Use Types Packs/Day Years [...] the past 12 months, has t he [employer], gas, oil or water company threatened to [...] Telephone Encounter - Linda Coello RN - 05/25/2025 10:42 AM EST TC placed to patient [phone] via [employer] (Yoselyn #[id number]) in regards to below message.Patient verbalized understanding and reports she will await to discuss medications at her next appointment. Patient reports she will NOT take the paxil medication in the mean time (patient reports she has stopped the 10mg already and is NOT interested in decreasing dose to 5mg either). Patient did not want a sooner appointment, currently on recall for 10/2025. Sending as FYI to PCP. * Telephone Encounter - Linda Coello RN - 05/24/2025 4:33 PM EST TC placed to patient [phone] via [employer] (Todd #[id number]) in regards to below message.Patient reports the paxil medication has been causing the patient to experience headaches, cold sweats and feelings of lightheadedness. Patient reports she would like to be prescribed an alternative medication which focuses only on menopause . Patient mentioned I know they have patches . Please advise if agreeable to prescribe alternative medication. Thank you! * Telephone Encounter - Donovan Chow - 05/24/2025 1:10 PM EST Tc from pt reporting that the medication PARoxetine (Paxil) 10 MG tablet Is giving her side affects and will like an alternative to only focus on menopause. Any questions contact pt at [phone] documented in this encounter Plan of Treatment Not on file documented as of this encounter Visit Diagnoses Not on filedocumented in this encounter Additional Health Concerns Assessment Noted Time PHQ-9 Depression Total Score: 0 05/16/20 3:13 PM EDT documented as of this encounter Care Teams Cloud Systems Administrator Relationship Specialty Start Date End Date Scarlett Perez MD [address] [place] [address] PCP - General Family Medicine 12/25/24 documented as of this encounter
--- OUTSIDE RECORDS SUMMARY | 2025-05-31 11:13 | XMS_ITS | Encounter Summary ---
Author Organization [employer] Address [address] [facility] 7t [place] [address] Care Team Providers Care Director Of Strategic Alliances Name Role Phone Scarlett Perez MD Primary Care Provider [phone] Reason for Visit * Reason Onset Date Comments Med Refill 09/27/2024 Encounter Details Date Type Department Care Team ([facility] st Contact Info) Description 09/27/2024 Telephone [facility] MEDICINE [address] [place], [place] [phone] Fermín Hernandez MD [address] [place] [address] Med Refill Social History Tobacco Use Types [...] 100 MCG tablet To be sent to: [facility] - [place], [place] - [address] [place] [address] documented in this encounter Plan of Treatment Not on file documented as of this encounter Visit Diagnoses Not on filedocumented in this encounter Care Teams Director Of Strategic Alliances Relationship Specialty Start Date End Date Scarlett Perez MD [address] [facility] [place] [address] PCP - General Family Medicine 12/25/24 documented as of this encounter
--- OUTSIDE RECORDS SUMMARY | 2025-05-31 11:13 | XMS_ITS | Clinical Summary ---
Author Organization [facility] Address [address] [place] [address] Care Team Providers Care Bag Builder Name Role Phone Robin Arriola NP Primary Care Provider [phone] Source Comments PLEASE NOTE, if this patient [...] sprayIndications:S easonal allergies,Need for vaccination Place 1 [address] in both nostrils once daily for 30 [...] 07/19/2024 04/18/2024 Diabetes Screening 02/24/2025 02/25/2024, 02/25/2024 [id number] ( season) 2025 Imm-Influenza (#1) 2025 04/18/2024 [...] TO FT4 1.39 0.40 - 4.50 mIU/L [facility] Comment: Reference Range > or = 20 Years 0.40-4.50 Ranges First trimester 0.26-2.66 Second trimester 0.55-2.73 Third trimester 0.43-2.91 Blood Blood / Unknown 04/19/2024 1 0:00 AM EDT 04/19/2024 10:01 AM EDT Narrative [facility] - 04/20/2024 6:34 AM EDT FASTING:NO us Trevon Ramirez HIM MANAGER LAB - BLOOD DRAW Final Resul t [facility] [address] [address], [facility] [address] [address] * HIV 1/2 AG & AB W/RFLX (4TH GEN) (02/25/2024 10:05 AM EDT) HIV AG/AB, 4TH GEN NON-REAC TIVE NON-REAC TIVE [facility] Comment: HIV-1 antigen and HIV-1/HIV-2 antibodies were [...] purpose. For additional information please refer to http://education.Benefit Mobile/faq/IVM700 (This link is being provided for informational/ educational purposes only.) The performance of this assay has not been clinically validated in patients less than 2 years old. Blood Blood / Unknown 02/25/2024 1 0:05 AM EDT 02/25/2024 10:05 AM EDT Narrative [facility] - 02/26/2024 8:37 AM EDT FASTING:YES Laura Mejia PA-C LAB - BLOOD DRAW Final Resul t [facility] [address] [place] [address], [facility] [address] [place] [phone] * (ABNORMAL) HGA1C W/EAG (02/25/2024 10:05 AM EDT) Pathologist [facility] HEMOGLOBIN A1C 6.0(H) <5.7 % of total Hgb [facility] Comment: For someone without known diabetes, a [...] diabetes for children. EAG (MG/DL) 126 mg/dL [facility] EAG (MMOL/L) 7.0 mmol/L [facility] Blood Blood / Unknown 02/25/2024 1 0:05 AM EDT 02/25/2024 10:05 AM EDT Narrative [facility] - 02/26/2024 8:37 AM EDT FASTING:YES Laura LANCASTERC LAB - BLOOD DRAW Edited Resu lt - Final [facility] [address] [address], [facility] [address] [address] * HEPATITIS PANEL W/RFLX (02/25/2024 10:05 AM EDT) HEPATITIS A IGM ANTIBODY NON-REACT ELLYN NON-REACT ELLYN [facility] COMMENT [facility] HEPATITIS B SURFACE ANTIGEN NON-REACT ELLYN NON-REACT ELLYN [facility] COMMENT [facility] HEPATITIS B CORE IGM ANTIBODY NON-REACT ELLYN NON-REACT ELLYN [facility] COMMENT [facility] HEPATITIS C ANTIBODY NON-REACT ELLYN NON-REACT ELLYN [facility] Comment: HCV antibody was non-reactive. There is no laboratory evidence of HCV infection. In most cases, no further action is required. However, if recent HCV exposure is suspected, a test for HCV RNA (test code 35516) is suggested. For additional information please refer to http://Qwiki.Benefit Mobile/faq/UIH13b2 (This link is being provided for informational/ educational purposes only.) Blood Blood / Unknown 02/25/2024 1 0:05 AM EDT 02/25/2024 10:05 AM EDT Narrative [facility] - 02/26/2024 8:37 AM EDT FASTING:YES For additional information, please refer to http://Tradyo/faq/QRL769 (This link is being provided for informational/ educational purposes only.) For additional information, please refer to http://education.Benefit Mobile/faq/FHK222 (This link is being provided for informational/ educational purposes only.) For additional information, please refer to http://Qwiki.Benefit Mobile/faq/BDG307 (This link is being provided for informational/ educational purposes only.) Laura Mejia PA-C LAB - BLOOD DRAW Final Resul t [facility] [address] [address], [facility] [address] [place] [address] * (ABNORMAL) LIPIDS W RFLX TO DIRECT LDL (02/25/2024 10:05 AM EDT) CHOLESTEROL, TOTAL 242(H) <200 mg/dL [facility] HDL CHOLESTEROL 71 > OR = 50 mg/dL [facility] TRIGLYCERIDES 140 <150 mg/dL [facility] LDL-CHOLESTEROL 145(H) 99 mg/dL (calc) [facility] Comment: Reference range: <100 Desirable range <100 mg/dL for primary prevention; <70 mg/dL for patients with CHD or diabetic patients with > or = 2 CHD risk factors. LDL-C is now calculated using the Rosas-Schuler calculation, which is a validated novel method providing better accuracy than the Friedewald equation in the estimation of LDL-C. Rosas GARCIA et al. TRUMAN. 2013;310(19): 9488-7340 (http://education.SoundSenasation.StatSims.com/faq/WJP496) CHOL/HDLC RATIO 3.4 <5.0 (calc) [facility] NON-HDL CHOLESTEROL 171(H) <130 mg/dL (calc) [facility] Comment: For patients with diabetes plus 1 major ASCVD risk factor, treating to a non-HDL-C goal of <100 mg/dL (LDL-C of <70 mg/dL) is considered a therapeutic option. Blood Blood / Unknown 02/25/2024 1 0:05 AM EDT 02/25/2024 10:05 AM EDT Narrative [facility] - 02/26/2024 8:37 AM EDT FASTING:YES us Laura Mejia PA-C LAB - BLOOD DRAW Final Resul t [facility] [address] [address], [facility] [address] [place] [address] from Last 3 Months or Most Recently Relevant to Health Maintenance Insurance [place] [employer] [place] Care Teams Bag Builder Relationship Specialty Start Date End Date Robin Arriola NP [address] [place] [address] PCP - General Family Medicine, SENIOR INSTRUCTIONAL DESIGNER 05/11/24
== END 2025-05-31 10:59 | disposition home or self-care (01) ==
LOC: HO.HGI 09:41
PROVIDERS: PCP Family Medicine; Visit Provider Nurse Practitioner Family
DX: K59.00 Constipation, unspecified (principal); R10.13 Epigastric pain; R13.10 Dysphagia, unspecified; E03.9 Hypothyroidism, unspecified
CPT/HCPCS: 99204

== ENCOUNTER → 2025-05-31 09:41 | Outpatient (BNVA) | payer MEDICAID, OTHER, SELFPAY | PROVIDERS: PCP Family Medicine; Visit Provider Nurse Practitioner Family | DX: Z01.818 Encounter for other preprocedural examination (principal); R13.10 Dysphagia, unspecified; E03.9 Hypothyroidism, unspecified; K59.00 Constipation, unspecified | CPT/HCPCS: 99202 ==

== ENCOUNTER 2025-06-26 10:12 | Outpatient (REF) | payer OTHER, SELFPAY ==
[2025-06-26 13:25] LABS: Free T4 (Free Thyroxine) 0.78 ng/dL (0.71-1.85)
== END 2025-06-26 10:13 | disposition home or self-care (01) ==
LOC: HO.HHCL 10:12
PROVIDERS: PCP General Practice; Visit Provider General Practice
DX: Z98.890 Other specified postprocedural states (principal); Z90.89 Acquired absence of other organs
CPT/HCPCS: 36415; 84439; 84443

== ENCOUNTER 2025-07-04 13:16 | Outpatient (REF) | payer OTHER, SELFPAY ==
--- OUTSIDE RECORDS SUMMARY | 2025-06-29 14:20 | XMS_ITS | Encounter Summary ---
Author Organization [employer] Address [address] [facility] [address] [place] [address] Care Team Providers Care Trolley Car Mechanic Name Role Phone Scarlett Perez MD Primary Care Provider [phone] Reason for Visit * Reason Comments Headache Generalized Body Aches Encounter Details Date Type Department Care Team ([facility] Contact Info) Description 06/29/2025 2:20 PM EST Office Visit [facility] [address] [place] [address] Linnea Sanchez NP [address] [place] [address] Hypothyroidism, unspecified type (Primary Dx) Social History Tobacco Use Types [...] Sign Reading Time Taken Comments Blood Pressure 121/87 06/29/2025 1:54 PM EST Pulse 64 06/29/2025 1:54 PM EST Temperature 36.7 C (98 F) 06/29/2025 1:54 PM EST Respiratory Rate 20 06/29/2025 1:54 PM EST Oxygen Saturation 98% 06/29/2025 1:54 PM EST Inhaled Oxygen Concentration - - Weight 74.9 kg (165 lb 3.2 oz) 06/29/2025 1:54 P M EST Height 160 cm (5' 3 ) 06/29/2025 1:54 PM EST Body Mass Index 29.26 06/29/2025 1:54 PM EST documented in this encounter Progress Notes * Linnea Sanchez NP - 06/29/2025 2:20 PM EST Bonnie Worthy, 54-year-old female - Headache onset ~3 days prior; described as severe; interferes with sleep - Diffuse body aches for 2-3 days; sensation of ???stabbing?? in bones - Feels progressively more fatigued and weak daily since symptom onset - Intermittent nasal congestion associated with cold weather - Shortness of breath, feels like asthma; worsens when lying down - Chronic constipation - Two recent episodes of dysuria; self-treated with trwc-yit-wcwajut pills that turned urine pink and improved symptoms - Denies known fever - History of hypothyroidism; prior partial thyroidectomy - Previously taking levothyroxine 150 mcg before moving; dose reduced to 100 mcg about 1 year ago; stopped thyroid medication due to feeling worse - Headache and ???stabbing?? head sensations previously improved when thyroid was treated Problem List[1] Medical History[2] Allergies[3] Review of Systems Constitutional: Positive for activity change. Gastrointestinal: Positive for constipation. BP 121/87 (BP Location: Left arm, Patient Position: Sitting, BP Cuff Size: Adult) Pulse 64 Temp98 ??F (36.7 ??C) (Oral) Resp 20 Ht 5' 3 (1.6 m) Wt 165 lb 3.2 oz (74.9 kg) SpO2 98% BMI29.26 kg/m?? Physical Exam Vitals reviewed. HENT: Head: Normocephalic and atraumatic. Nose: Nose normal. Eyes: Conjunctiva/sclera: Conjunctivae normal. Cardiovascular: Rate and Rhythm: Normal rate and regular rhythm. Pulmonary: Effort: Pulmonary effort is normal. Breath sounds: Normal breath sounds. Musculoskeletal: Cervical back: Normal range of motion and neck supple. Neurological: General: No focal deficit present. Mental Status: She is alert. Results: Orders Only on 06/26/2025 Component Date Value Ref Range Status Free T4 (Free Thyroxine) 06/26/2025 0.78 0.71 - 1.85 ng/dL Final Orders Only on 06/12/2025 Component Date Value Ref Range Status TSH reflex Free T4 06/26/2025 5.93 (H) 0.32 - 4.0 uIU/mL Final Assessment & Plan Hypothyroidism, unspecified type Orders: TSH W/Reflex to FT4; Future Assessment & Plan Hypothyroidism, unspecified type: - Symptoms of headache, myalgias, fatigue, and pruritus may be related to undertreated hypothyroidism. Recent TSH level elevated at 5, but not high enough to fully explain current severity of symptoms. Differential includes possible infection (COVID, influenza, urinary tract infection, or lung infection), but no clear evidence for these at present. Symptoms are familiar to previous episodes of undertreated hypothyroidism. - Prescribed levothyroxine 125 mcg daily. Advised to take first dose tonight (half tablet) and thencontinue daily in the morning on an empty stomach with water. Placed future order for repeat thyroid labs in 4-6 weeks to assess response to increased dose. Instructed to monitor for worsening symptoms and to seek care urgently if symptoms change or worsen. Offered to facilitate communication with pharmacy for expedited prescription fill. Offered follow-up with primary care provider as needed. Prescription - Levothyroxine 125 mcg daily: take half tablet tonight, then full tablet each morning on an empty stomach with a glass of water Current Medications[4] Based on our discussion, I have outlined the following instructions for you: - Start levothyroxine: take half a tablet tonight, then take one full 125 mcg tablet every morning on an empty stomach with a glass of water. - Watch your symptoms closely. If they worsen or change, seek urgent care, and schedule a follow-upvisit as needed. - Plan for repeat thyroid blood tests in 4-6 weeks to see how the dose is working. - If needed, ask to help coordinate with the pharmacy to get your prescription filled quickly. Next appointment(s): - Repeat thyroid labs in 4-6 weeks to assess response to increased dose. - Follow-up with primary care provider as needed. This note was drafted using Ambient (AI) technology. The patient/patient's guardian has been informed and has consented to the use of this technology: Yes Visit Conducted in: Botswanan Translation by: family member [1] Patient Active Problem List Diagnosis Prediabetes Seasonal allergies Mixed hyperlipidemia H/O thyroidectomy Facial swelling Rash Severe episode of recurrent major depressive disorder, without psychotic features (CMS/HCC) (HCC) MARIAH (generalized anxiety disorder) Hypothyroidism [2] Past Medical History: Diagnosis Date Disease of thyroid gland History of ST elevation myocardial infarction (STEMI) Prediabetes 02/28/2024 [3] Allergies Allergen Reactions Fish Protein-Containing Drug Products Penicillin G Shellfish Allergy [4] Current Outpatient Medications: acetaminophen (Tylenol) 500 MG tablet, Take 1 tablet (500 mg) by mouth every 6 (six) hours if needed for mild pain for up to 20 doses., Disp: 20 tablet, Rfl: 0 albuterol 108 (90 Base) MCG/ACT inhaler, Inhale 2 puffs every 4 (four) hours if needed for wheezingor shortness of breath., Disp: 18 g, Rfl: 1 cetirizine (ZyrTEC) 10 MG tablet, TAKE 1 TABLET BY MOUTH ONCE DAILY, Disp: 90 tablet, Rfl: 0 chlorhexidine (Peridex) 0.12 % solution, Swish 15 mL morning and night for 1 minute. Spit, do not swallow. Do not eat or drink for 30 minutes following use., Disp: 473 mL, Rfl: 0 famotidine (Pepcid) 20 MG tablet, Take 1 tablet (20 mg) by mouth 2 times daily., Disp: 60 tablet, Rfl: 11 fluticasone (Flonase Allergy Relief) 50 MCG/ACT nasal spray, Administer 1 spray into each nostril Once per day. Shake gently. Before first use, prime pump. After use, clean tip and replace cap., Disp: 16 g, Rfl: 12 ibuprofen 600 MG tablet, Take 1 tablet (600 mg) by mouth every 6 (six) hours if needed for mild pain for up to 20 doses., Disp: 20 tablet, Rfl: 0 levothyroxine (Synthroid) 125 MCG tablet, Take 1 tablet (125 mcg) by mouth Once per day., Disp: 30 tablet, Rfl: 2 lidocaine (Xylocaine) 5 % ointment, Apply topically if needed in the morning, at noon, and at bedtime (pain)., Disp: 30 g, Rfl: 3 omeprazole (PriLOSEC) [address] capsule, Take 20 mg by mouth Once per day. (Patient not taking: Reported on 06/19/2025), Disp: , Rfl: predniSONE (Deltasone) 20 MG tablet, Take 1 tablet (20 mg) by mouth Once daily as needed (allergic reaction of skin swelling)., Disp: 5 tablet, Rfl: 0 Spacer/Aero-Holding Chambers (OptiChamber Nicole) misc, 1 each every 4 (four) hours if needed (asthma)., Disp: 1 each, Rfl: 0 documented in this encounter Miscellaneous Notes * Assessment & Plan Note - Linnea Sanchez NP - 06/29/2025 2:20 PM ESTAssociated Problem(s): Hypothyroidism Orders: TSH W/Reflex to FT4; Future documented in this encounter Plan of Treatment Upcoming Encounters Date Type Department Care Team (Late st Contact Info) Description 07/31/2025 9:30 AM EST Office Visit [facility] [address] [place] [address] Rohit Ramirez 12/18/2025 9:30 AM EDT Office Visit [facility] [address] [place] [address] Shelby Abraham Scheduled Orders Name Type Priority Associated Diagnoses Orde r Schedule TSH W/Reflex to FT4 Lab Routine Hypothyroidism, unspecified type Expected: 07/13/2026 (Approximate), Expires: 10/11/2026 documented as of this encounter Visit Diagnoses Diagnosis Hypothyroidism, unspecified type- Primary documented in this encounter Additional Health Concerns Assessment Noted Time PHQ-9 Depression Total Score: 0 05/16/20 3:13 PM EDT documented as of this encounter Care Teams Trolley Car Mechanic Relationship Specialty Start Date End Date Scarlett Perez MD [address] [place] [id number] PCP - General Family Medicine 12/25/24 documented as of this encounter
--- OUTSIDE RECORDS SUMMARY | 2025-07-03 09:45 | XMS_ITS | Encounter Summary ---
Author Organization [email or web address] Address [address] [facility] [address] [address] [place] [address] Care Team Providers Care Rn Hemodialysis Charge Name Role Phone Scarlett Perez MD Primary Care Provider [phone] Reason for Visit * Reason Comments Acupuncture Encounter Details Date Type Department Care Team ([facility] Contact Info) Description 07/03/2025 9:45 AM EST Office Visit [facility] MEDICINE [address] [place], [place] [phone] Sandra Allen MD [address] [place] [address] Chronic left shoulder pain (Primary Dx) Social [...] as of this encounter Progress Notes * Sadnra Allen MD - 07/03/2025 9:45 AM EST Subjective Patient ID: Bonnie Gutierrez is a 54 y.o. female who presents for Acupuncture. Bonnie is here for acupuncture treatment #6 for left shoulder pain. Her shoulder pain has decreasedsignificantly. Review of Systems Musculoskeletal: Positive for arthralgias. [...] Description 07/31/2025 9:30 AM EST Office Visit [facility] [address] [place] [address] Rohit Ramirez 12/18/2025 9:30 AM EDT Office Visit [facility] [address] [place] [address] Shelby Abraham documented as of this encounter Visit Diagnoses Diagnosis Chronic left shoulder pain- Primary Pain in joint, shoulder region documented in this encounter Additional Health Concerns Assessment Noted Time PHQ-9 Depression Total Score: 0 05/16/20 25 3:13 PM EDT documented as of this encounter Care Teams Rn Hemodialysis Charge Relationship Specialty Start Date End Date Scarlett Perez MD [address] [place] [address] PCP - General Family Medicine 12/25/24 documented as of this encounter
--- NOTE | ~2025-07-04 | US_ITS ---
EXAMINATION: US PELVIS TRANSABDOMINAL AND TRANSVAGINAL HISTORY: pelvic pain COMPARISON: There are no prior studies available for comparison. TECHNIQUE: Transabdominal and endovaginal real-time 2D thayer-scale ultrasound was performed. FINDINGS: Uterus: Status post hysterectomy. Ovaries: Bilateral ovaries are not visualized. No mass or fluid collection is seen. Pelvic fluid: none. US/US pelvic and transvaginal IMPRESSION: Status post hysterectomy. Bilateral ovaries are not visualized. No mass or fluid collection is seen. Electronically signed by: Mark Welch MD 07/05/2025 11:00 AM [facility]
--- OUTSIDE RECORDS SUMMARY | 2025-07-04 17:26 | XMS_ITS | Patient Health Record ---
Author Organization [facility] Address [address] [place] [id number] Care Team Providers Care Reimbursement Director Name Role Phone MELVIN STORY Primary Care [...] Status Risk Notes Problem Chronic idiopathic constipation (96236278) Chronic idiopathic constipation (K59.04) Active confirmed Plan Of Treatment No Information Insurance Providers Payer Name Payer Address Payer Phone Subscriber Number Group Number Insured Name Patient Relationship to Insured Coverage Start Date Coverage End Date [facility] [address] [place] [address] [id number] Bonnie Jean Self - patient is the insured MEDICAID [address] [place] [address] [id number] Bonnie Jean Self - patient is the insured Medical (General) History Medical History History ICD Code hypothyroidism Surgical History Surgery Date(Month/Year) thyroidectomy
--- OUTSIDE RECORDS SUMMARY | 2025-07-04 17:26 | XMS_ITS | Clinical Summary ---
Author Organization [email or web address] Address [address] [place] [address] Care Team Providers Care Prom Burn Off Operator Name Role Phone Scarlett Perez MD Primary Care Provider [phone] Allergies Active Allergy Reactions Criticality Noted Date Comments Fish Protein-Containing Drug Products 02/25/2024 Penicillin G 09/18/2024 Shellfish Allergy 12/26/2024 Medications * This document contains information received from the source organization and may not represent a complete record from that organization. cetirizine (ZyrTEC) 10 MG tabletIndication s:Seasonal allergies TAKE 1 TABLET BY MOUTH ONCE DAILY 90 tablet 10/19/19 25 Active acetaminophen (Tylenol) 500 MG tablet [...] following use. 473 mL 12/08/19 25 Active famotidine (Pepcid) 20 MG tabletIndication s:Gastritis, presence of bleeding unspecified, unspecified chronicity, unspecified gastritis type Take 1 tablet (20 mg) by mouth 2 times daily. 60 tablet 11 02/09/20 25 026 Active fluticasone (Flonase Allergy Relief) 50 MCG/ACT nasal spray Administer 1 spray into each nostril Once per day. Shake gently. Before first use, prime pump. After use, clean tip and replace cap. 16 g 12 04/24/20 25 10/07/2 026 Active albuterol 108 (90 Base) MCG/ACT inhaler Inhale 2 puffs every 4 (four) hours if needed for wheezing or shortness of breath. 18 g 1 04/24/20 25 Active Spacer/Aero-Hold ing Chambers (OptiChamber Nicole) misc 1 each every 4 (four) hours if needed (asthma). 1 each 04/24/20 Active omeprazole (PriLOSEC) [address] capsule Take 20 mg by mouth Once per day. 12/28/19 Active ibuprofen 600 MG tabletIndication s:Pelvic pain Take 1 tablet (600 mg) by mouth every 6 (six) hours if needed for mild pain for up to 20 doses. 20 tablet 05/16/20 Active predniSONE (Deltasone) 20 MG tabletIndication s:Facial swelling Take 1 tablet (20 mg) by mouth Once daily as needed (allergic reaction of skin swelling). 5 tablet 05/16/20 25 Active lidocaine (Xylocaine) 5 % ointment Apply topically if needed in the morning, at noon, and at bedtime (pain). 30 g 3 05/29/20 25 026 Active levothyroxine (Synthroid) 125 MCG tablet Take 1 tablet (125 mcg) by mouth Once per day. 30 tablet 2 5 3:11 PM EST 06/29/20 25 026 Active levothyroxine (Synthroid) 100 MCG tabletIndication s:H/O thyroidectomy Take 1 tablet (100 mcg) by mouth before breakfast. 90 tablet 3 05/16/20 25 025 Discontinued Active Problems Problem Noted Date Diagnosed Date Hypothyroidism 06/29/2025 Assessment & Plan (07/01/2025 6:05 PM EST): Orders: TSH W/Reflex to FT4; Future Severe episode of recurrent major depressive disorder, [...] Encounters Date Type Department Care Team Description 07/03/2025 9:45 AM EST Office Visit [facility] [address] [place] [address] Sandra Allen MD Chronic left shoulder pain (Primary Dx) 07/03/2025 Travel 06/29/2025 2:20 PM EST Office Visit [facility] [address] [place] [phone] Linnea Sanchez NP Hypothyroidism, unspecified type (Primary Dx) 06/29/2025 Travel 06/26/2025 9:30 AM EST Office Visit [facility] [address] [place] [address] Sandra Allen MD Chronic left shoulder pain (Primary Dx) 06/26/2025 Orders Only [address] [address] Scarlett Perez MD 06/26/2025 Travel 06/19/2025 10:15 AM EST Office Visit [facility] ADULT DENTAL [address] [place] [address] Shelby Abraham Dental calculus (Primary Dx); Dental plaque 06/12/2025 9:30 AM EST Office Visit [address] [address] Sandra Allen MD Chronic left shoulder pain (Primary Dx) 06/12/2025 Orders Only [address] [address] Scarlett Perez MD H/O thyroidectomy (Primary Dx) 06/12/[address] [address] Scarlett Perez MD telephone call 06/12/2025 Travel 06/07/2025 Telephone [facility] [address] [place] [address] Rohit Ramirez insurance discrepancy rs appt 06/05/2025 9:30 AM EST Office Visit [address] [address] Sandra Allen MD Chronic left shoulder pain (Primary Dx) 06/05/2025 Travel 05/29/2025 9:15 AM EST Office Visit [address] [address] Sandra Allen MD Chronic left shoulder pain (Primary Dx) 05/29/[address] [address] Scarlett Perez MD telephone call 05/29/2025 Travel 05/25/2025 Orders Only [address] [address] Scarlett Perez MD Pelvic pain (Primary Dx) 05/25/2025 Telephone [facility] [address] [place] [address] [phone] Scarlett Perez MD 05/24/[address] [address] Scarlett Perez MD Medication Question 05/22/[address] [address] Scarlett Perez MD 05/17/2025 10:30 AM EDT Office Visit [facility] [address] [place] [address] Sandra Allen MD Chronic left shoulder pain (Primary Dx) 05/17/2025 Travel 05/16/2025 3:00 PM EDT Office Visit [facility] [address] [place] [address] Scarlett Perez MD Prediabetes (Primary Dx); Facial swelling; Second hand smoke exposure; Symptoms, such as flushing, sleeplessness, headache, lack of concentration, associated with the menopause; H/O thyroidectomy; Pelvic pain; Encounter for immunization; Screening for colon cancer; Vocal cord dysfunction 05/16/2025 Travel 05/15/2025 Telephone [facility] [address] [place] [address] Scarlett Perez MD chart prep 05/03/2025 10:30 AM EDT Office Visit [facility] OPTOMETRY [address] [place], [place] [phone] Serene Ellsworth OD Presbyopia (Primary Dx); Pterygium, right; Pinguecula of left eye; Combined forms of age-related cataract of both eyes 05/03/2025 Travel 04/24/2025 10:40 AM EDT Office Visit [facility] [address] [place] [address] Scott Birmingham MD Chronic left shoulder pain (Primary Dx); Trigger ring finger of left hand; Influenza-like symptoms; Acute otitis externa of left ear, unspecified type from Last 3 Months Immunizations Immunization Administration [...] Mass Index 29.26 06/29/2025 1:54 PM EST Plan of Treatment Upcoming Encounters Date Type Department Care Team (Late st Contact Info) Description 07/31/2025 9:30 AM EST Office Visit [facility] AD[facility] [address] [place] [address] Rohit Ramirez 12/18/2025 9:30 AM EDT Office Visit [facility] [address] [place] [address] Shelby Abraham Health Maintenance Due Date Last Done Comments [...] of 2) 2018 COVID-19 Vaccine (1 - 2024-2 6 season) 2025 Dental Oral Exam 12/19/2025 06/19/2025, 06/19/2025, 10/20/2024 Dental Prophylaxis 12/19/2025 06/19/2025, 09/06/2024 Alcohol/Substance Use Screening 12/26/2025 12/26/2024 Disability Screening 12/26/2025 12/26/2024 SDOH Screening 12/26/2025 12/26/2024 Depression Screening 05/16/2026 05/16/2025, 05/16/2025 Diabetes: Hemoglobin A1C 05/17/202605/17/ 025, 09/25/2024, 02/25/2024 Dental X-Ray: Bitewings 06/20/2026 06/19/20 25, 09/06/2024 Tobacco Screening 06/29/2026 06/29/2025 Dental X-Ray: Full Mouth 09/07/2027 09/06/2024 HIV [...] Procedure Name Priority Date/Time Associated Diagnosis Comments T4, FREE Routine 06/26/2025 10:15 AM EST TSH W/REFLEX TO FT4 Routine 06/26/2025 1 0:15 AM EST H/O thyroidectomy COMPREHENSIVE ORAL EVALUATION - NEW OR ESTABLISHED PATIENT Routine 06/19/2025 10:15 AM EST PERIODIC ORAL EVALUATION - ESTABLISHED PATIENT Routine 06/19/2025 10:15 AM EST INTRAORAL - PERIAPICAL EACH ADDITIONAL RADIOGRAPHIC IMAGE Routine 06/19/2025 10:15 AM EST INTRAORAL - PERIAPICAL FIRST RADIOGRAPHIC IMAGE Routine 06/19/2025 10:15 AM EST BITEWING - SINGLE RADIOGRAPHIC IMAGE Routine 06/19/2025 10:15 AM EST ORAL HYGIENE INSTRUCTIONS Routine 06/19/2025 10:15 AM EST CASE PRESENTATION, DETAILED AND EXTENSIVE TREATMENT PLANNING Routine 06/19/2025 10:15 AM EST Full PROPHYLAXIS - ADULT Routine 06/19/2025 10:15 AM EST XR CHEST 2 VIEWS Routine 05/17/2025 10:2 [...] Routine 04/24/2025 11:50 AM EDT Influenza-like symptoms INTRAORAL - COMPLETE SERIES OF RADIOGRAPHIC IMAGES Routine 09/06/2024 11:00 AM EST from Last 3 Months or Most Recently Relevant to Health Maintenance Results * (ABNORMAL) TSH W/Reflex to FT4 (06/26/2025 10:15 AM EST) TSH reflex Free T4 5.93(H) 0.32 - 4.0 uIU/mL [facility] Blood Venous blood specimen / Unknown 06/26/2025 10:15 AM EST 06/26/2025 10:58 AM EST us Scarlett Perez MD LAB BLOOD ORDERABLES Final Res ult [facility] [address] [place] [phone] * T4, Free (06/26/2025 10:15 AM EST) Free T4 (Free Thyroxine) 0.78 0.71 - 1.85 ng/dL [facility] 06/26/2025 10:1 5 AM EST 06/26/2025 10:58 AM EST us Scarlett Perez MD LAB BLOOD ORDERABLES Final Res ult Performing Organization Address City/State/[facility] Co de Phone Number [facility] [address] [place] [phone] * XR Chest 2 Views (05/17/2025 10:20 AM EDT) Anatomical Region Laterality Modality Chest Radiographic Jen ging 05/17/2025 10:2 0 AM EDT Narrative 05/17/2025 10:29 AM EDT [address] [address] XRay Report Signed Patient: Bonnie Worthy MR#: [id number] : 1970 Acct:[id number] Age/Sex: 54 / F ADM Date: 05/17/25 Loc: .CL Attending Dr: Scarlett Perez MD Ordering Physician: Scarlett Perez Date of Service: 05/17/25 Procedure(s): XR chest 2V Accession Number(s): [id number] cc: Scarlett Perez Reason for Exam: feels [...] 05/17/25 1026 DD/ 1020 TD/TT: 05/17/25 1021 Computer Forwarding System Markup Clerk: Procedure Note Donotjuanter, Image - 05/17/2025 [place] [address] XRay Report Signed Patient: Silverio Worthy#: [id number] : 1970Acct:[id number] Age/Sex: 54 / FADM Date: 05/17/25 Loc: .[facility] Attending Dr: Scarlett Perez MD Ordering Physician: Scarlett Perez Date of Service: 05/17/25 Procedure(s): XR chest 2V Accession Number(s): [id number] cc: Scarlett Perez Reason for Exam: feels [...] 05/17/25 1026 DD/ 1020 TD/TT: 05/17/25 1021 Computer Forwarding System Markup Clerk: Scarlett Perez MD IMG XR PROCEDURES Edited Resul t - Final * Estrogen, Total, Serum (05/17/2025 9:58 AM EDT) Estrogen, Total, Serum 37 pg/mL [facility] Comment:Reference Ranges for Total Estrogen: Follicular Phase: 51-601 Luteal Phase: 87-1194 Postmenopausal: < or = 214THIS TEST WAS PERFORMED AT:[facility]/[employer] [id number] FERNIE BARRIENTOS [id number] ASH MD,PHD,MERA Blood Venous blood specimen / Unknown 05/17/2025 9:58 AM EDT 05/17/2025 11:30 AM EDT Scarlett Perez MD LAB BLOOD ORDERABLES Final Res ult Performing Organization Address [facility] Co de Phone Number [facility] [address] [place] [address] [phone] * Hemoglobin A1c (05/17/2025 9:58 AM EDT) Hemoglobin A1c 6.0 <6.0 % [facility] Comment:Hemoglobin A1C Refer ence Range Adults: 4.8 - 6.0 % Non diabetic: < 6.0 % Goal: < 7.0 %Additional Action Suggested: > 8.0 %Note: Hemoglobin A1c results are invalid for patients with abnormal amounts of HbF. Blood transfusions may impact the HbA1c concentration in the patient sample. Estimated Average Glucose 126 mg/dL [facility] Comment:eAG = Estimated ave rage glucose which is %A1C expressed asaverage glucose, using the formula of the H3I-DugrmupPiuchxv Glucose study (ADAG), Diabetes Care, Vol.31,#8,Feb. 2007 Blood Venous blood specimen / Unknown 05/17/2025 9:58 AM EDT 05/17/2025 11:30 AM EDT Scarlett Perez MD LAB BLOOD ORDERABLES Final Res ult Performing Organization Address [facility] Co de Phone Number [facility] [address] [place] [address] [phone] * LH (05/17/2025 9:58 AM EDT) Lutenizing Hormone 31.9 mIU/mL [facility] Comment:Reference Range Foll icular Phase 1.9-12.5 Mid-Cycle Peak 8.7-76.3 Luteal Phase 0.5-16.9 Postmenopausal 10.0-54.7THIS TEST WAS PERFORMED AT:[facility] [address] [id number] TERRY MD Blood Venous blood specimen / Unknown 05/17/2025 9:58 AM EDT 05/17/2025 11:30 AM EDT Scarlett Perez MD LAB BLOOD ORDERABLES Final Res ult Performing Organization Address [facility]/ZIP Co de Phone Number [facility] [address] [place] [phone] * FSH (05/17/2025 9:58 AM EDT) Follicle Stimulating Hormone 49.0 mIU/mL [facility] Comment:Reference Range Foll icular Phase 2.5-10.2 Mid-cycle Peak 3.1-17.7 Luteal Phase 1.5- 9.1 Postmenopausal 23.0-116.3THIS TEST WAS PERFORMED AT:[facility] [address] [id number] TERRY MD Blood Venous blood specimen / Unknown 05/17/2025 9:58 AM EDT 05/17/2025 11:30 AM EDT Scarlett Perez MD LAB BLOOD ORDERABLES Final Res ult Performing Organization Address [facility]/ZIP Co de Phone Number [facility] [address] [place] [phone] * POCT Glucose (05/16/2025 2:53 PM [...] PM EDT Narrative 04/24/2025 12:24 PM EDT [facility] [address] [place] [address] XRay Report Signed Patient: Bonnie Worthy MR#: [id number] : 1970 Acct:[id number] Age/Sex: 54 / F ADM Date: 04/24/25 Loc: HO.[facility]HCX Attending Dr: Scott Birmingham MD Ordering Physician: SCOTT BIRMINGHAM MD Date of Service: 04/24/25 Procedure(s): XR shoulder LT min 2V Accession Number(s): [id number] cc: SCOTT BIRMINGHAM MD Reason for Exam: [...] 04/24/25 1222 DD/ 1217 TD/TT: 04/24/25 1217 Computer Forwarding System Markup Clerk: Procedure Note Donotuseinterpreter, Image - 04/24/2025 [facility] [address] [place] [address] XRay Report Signed Patient: Silverio Worthy#: [id number] : 1970Acct:[id number] Age/Sex: 54 / FADM Date: 04/24/25 Loc: HO.HHCX Attending Dr: Scott Birmingham MD Ordering Physician: SCOTT BIRMINGHAM MD Date of Service: 04/24/25 Procedure(s): XR shoulder LT min 2V Accession Number(s): [id number] cc: SCOTT BIRMINGHAM MD Reason for Exam: [...] 04/24/25 1222 DD/ 1217 TD/TT: 04/24/25 1217 Computer Forwarding System Markup Clerk: us Scott Birmingham MD IMG XR PROCEDURES Final Result * Influenza B (ID NOW Rapid Molecular) (04/24/2025 11:50 AM EDT) Influenza B Negative Negative, Indeterminate [facility] Swab 04/24/2025 11:5 0 AM EDT us Scott Birmingham MD POINT OF CARE TEST ENTER/EDIT OR DERABLES Final Result Performing Organization Address City/[facility]/ZIP Co de Phone Number [facility] [address] [place] [phone] * Influenza A (ID NOW Rapid Molecular) (04/24/2025 11:50 AM EDT) Influenza A Negative Negative, Indeterminate [facility] Swab 04/24/2025 11:5 0 AM EDT Scott Birmingham MD POINT OF CARE TEST ENTER/EDIT OR DERABLES Final Result Performing Organization Address [facility]/ZIP Co de Phone Number [facility] [address] [place] [phone] * POCT Rapid COVID Ag (04/24/2025 11:50 AM EDT) Rapid COVID Ag Negative [facility] Swab 04/24/2025 11:5 0 AM EDT Scott Birmingham MD POINT OF CARE TEST ENTER/EDIT OR DERABLES Final Result Performing Organization Address [facility] Co de Phone Number [facility] [address] [place] [phone] from Last 3 Months Insurance [facility] DENTAL - HSN PARTIAL (MEDICAID) Care Teams Prom Burn Off Operator Relationship Specialty Start Date End Date Scralett Perez MD [address] [place] [phone] PCP - General Family Medicine 12/25/24
--- OUTSIDE RECORDS SUMMARY | 2025-07-04 17:26 | XMS_ITS | Encounter Summary ---
Author Organization [email or web address] Address [address] [place] [address] Care Team Providers Care Graduate Teaching Assistant Name Role Phone Scarlett Perez MD Primary Care Provider [phone] Encounter Details Date Type Department Care Team (Latest Contact Info) Description 07/03/2025 Travel Social History Tobacco Use Types Packs/Day [...] 9:30 AM EST Office Visit [facility] ADULT DENT[facility] [address] [place] [address] Rohit Ramirez 12/18/2025 9:30 AM EDT Office Visit [facility] ADULT DENT[facility] [address] [place] [address] Shelby Abraham documented as of this encounter Visit Diagnoses Not on filedocumented in this encounter Additional Health Concerns Assessment Noted Time PHQ-9 Depression Total Score: 0 05/16/20 25 3:13 PM EDT documented as of this encounter Care Teams Graduate Teaching Assistant Relationship Specialty Start Date End Date Scarlett Perez MD [address] [place] [phone] PCP - General Family Medicine 12/25/24 documented as of this encounter
--- OUTSIDE RECORDS SUMMARY | 2025-07-04 17:26 | XMS_ITS | Encounter Summary ---
Author Organization [email or web address] Address [address] [place] [address] Care Team Providers Care Director Of Neighborhood Service Center Name Role Phone Scarlett Perez MD Primary Care Provider [phone] Reason for Visit * Reason Onset Date Comments insurance discrepancy rs appt 06/07/2025 Encounter Details Date Type Department Care Team ([facility] st Contact Info) Description 06/07/2025 Telephone [facility] [address] [place] [address] Rohit Ramirez insurance discrepancy rs appt Social History Tobacco Use Types Packs/Day Years [...] encounter Miscellaneous Notes * Telephone Encounter - Deirdre Gómez - 06/07/2025 3:13 PM EST Patient called in to rs appointment. Upon insurance verification [employer] Partial Health Safety Net Portal [employer] and [employer]. documented in this encounter Plan of Treatment Upcoming Encounters Date Type Department Care Team (Late st Contact Info) Description 07/31/2025 9:30 AM EST Office Visit [facility] ADULT DENTAL [address] [place] [address] Rohit Ramirez 12/18/2025 9:30 AM EDT Office Visit [facility] ADULT DENT[facility] [address] [place] [address] Shelby Abraham documented as of this encounter Visit Diagnoses Not on filedocumented in this encounter Additional Health Concerns Assessment Noted Time PHQ-9 Depression Total Score: 0 05/16/20 25 3:13 PM EDT documented as of this encounter Care Teams Director Of Neighborhood Service Center Relationship Specialty Start Date End Date Scarlett Perez MD [address] [place] [phone] PCP - General Family Medicine 12/25/24 documented as of this encounter
--- OUTSIDE RECORDS SUMMARY | 2025-07-04 17:26 | XMS_ITS | Encounter Summary ---
Author Organization [employer] Address [address] [place] [address] Care Team Providers Care Professor Of Forest Planning Name Role Phone Scarlett Perez MD Primary Care Provider [phone] Encounter Details Date Type Department Care Team (Latest Contact Info) Description 06/29/2025 Travel Social History Tobacco Use Types Packs/Day [...] Description 07/31/2025 9:30 AM EST Office Visit [facility] ADULT DENTAL [address] [place] [address] Rohit Ramirez 12/18/2025 9:30 AM EDT Office Visit [facility] ADULT DENT[facility] [address] [place] [address] Shelby Abraham documented as of this encounter Visit Diagnoses Not on filedocumented in this encounter Additional Health Concerns Assessment Noted Time PHQ-9 Depression Total Score: 0 05/16/20 25 3:13 PM EDT documented as of this encounter Care Teams Professor Of Forest Planning Relationship Specialty Start Date End Date Scarlett Perez MD [address] [place] [phone] PCP - General Family Medicine 12/25/24 documented as of this encounter
--- OUTSIDE RECORDS SUMMARY | 2025-07-04 17:26 | XMS_ITS | Encounter Summary ---
Author Organization [employer] Address [address] [place] [address] Care Team Providers Care Law Clerk Name Role Phone Scarlett Perez MD Primary Care Provider [phone] Encounter Details Date Type Department Care Team ([facility] st Contact Info) Description 06/12/2025 Orders Only [facility] MED[facility]INE [address] [place], [place] [phone] Scarlett Perez MD [address] [place], [place] [phone] H/O thyroidectomy (Primary Dx) Social History Tobacco Use Types [...] Description 07/31/2025 9:30 AM EST Office Visit [facility] ADULT DENTAL [address] [place] [address] Rohit Ramirez 12/18/2025 9:30 AM EDT Office Visit [facility] ADULT DENTAL [address] [place] [address] Shelby Abraham documented as of this encounter Procedures Procedure Name Priority Date/Time Associated Diagnosis Comments TSH W/REFLEX TO FT4 Routine 06/26/2025 10:15 AM EST H/O thyroidectomy documented in this encounter Results * (ABNORMAL) TSH W/Reflex to FT4 (06/26/2025 10:15 AM EST) TSH reflex Free T4 5.93(H) 0.32 - 4.0 uIU/mL [facility] Blood Venous blood specimen / Unknown 06/26/2025 10:15 AM EST 06/26/2025 10:58 AM EST us Scarlett Perez MD LAB BLOOD ORDERABLES Final Res ult [facility] [address] [place] [phone] [phone] documented in this encounter Visit Diagnoses Diagnosis H/O thyroidectomy- Primary documented in this encounter Additional Health Concerns Assessment Noted Time PHQ-9 Depression Total Score: 0 05/16/20 3:13 PM EDT documented as of this encounter Care Teams Law Clerk Relationship Specialty Start Date End Date Scarlett Perez MD [address] [place] [address] PCP - General Family Medicine 12/25/24 documented as of this encounter
--- OUTSIDE RECORDS SUMMARY | 2025-07-04 17:26 | XMS_ITS | Encounter Summary ---
Author Organization [employer] Address [address] [facility] [place] [address] Care Team Providers Care Mica Plate Layer Hand Name Role Phone Scarlett Perez MD Primary Care Provider [phone] Reason for Visit * Reason Onset Date Comments Med Refill 09/27/2024 Encounter Details Date Type Department Care Team ([facility] st Contact Info) Description 09/27/2024 Telephone [facility] [address] [place], [place] [phone] Fermín Hernandez MD [address] [place] [address] Med Refill Social History Tobacco Use Types [...] 100 MCG tablet To be sent to: [facility] - [place], [place] - [address] [facility] documented in this encounter Plan of Treatment Upcoming Encounters Date Type Department Care Team (Late st Contact Info) Description 07/31/2025 9:30 AM EST Office Visit [facility] ADULT DENTAL [address] [place] [address] Rohit Ramirez 12/18/2025 9:30 AM EDT Office Visit [facility] ADULT DENTAL [address] [place] [address] Shelby Abraham documented as of this encounter Visit Diagnoses Not on filedocumented in this encounter Care Teams Mica Plate Layer Hand Relationship Specialty Start Date End Date Scarlett Perez MD [address] [facility] [place] [address] PCP - General Family Medicine 12/25/24 documented as of this encounter
--- OUTSIDE RECORDS SUMMARY | 2025-07-04 17:26 | XMS_ITS | Encounter Summary ---
Author Organization [employer] Address 75 [facility] 7t [place] [address] Care Team Providers Care Skull Splitter Name Role Phone Scarlett Perez MD Primary Care Provider [phone] Reason for Referral * Imaging (Routine) - Authorized Specialty Diagnoses / Procedures [facility] Referred To Contact Radiology Diagnoses Pelvic pain Procedures US Pelvis Transvaginal Scarlett Perez MD [address] [place] [address] Phone: tel: fax: [facility] [address] [place] [phone] Phone: tel: fax: Referral ID Status Reason Start Date Expiration Date V isits Requested Visits Authorized [id number] Authorized 05/25/2025 05/25/2026 1 1 Encounter Details Date Type Department Care Team (Late st Contact Info) Description 05/25/2025 Orders Only [facility] MED[facility]INE [address] [place], [place] [phone] Scarlett Perez MD [address] [place] [address] Pelvic pain (Primary Dx) Social History [...] Description 07/31/2025 9:30 AM EST Office Visit [facility] [address] [place] [address] Rohit Ramirez 12/18/2025 9:30 AM EDT Office Visit [facility] [address] [place] [address] Shelby Abraham Scheduled Orders Name Type Priority Associated Diagnoses Orde r Schedule US Pelvis Transvaginal Imaging Routine Pelvic pain Expected: 05/25/2025, Expires: 05/25/2026 documented as of this encounter Visit Diagnoses Diagnosis Pelvic pain- Primary documented in this encounter Additional Health Concerns Assessment Noted Time PHQ-9 Depression Total Score: 0 05/16/20 3:13 PM EDT documented as of this encounter Care Teams Skull Splitter Relationship Specialty Start Date End Date Scarlett Perez MD [address] [place] [address] PCP - General Family Medicine 12/25/24 documented as of this encounter
--- OUTSIDE RECORDS SUMMARY | 2025-07-04 17:26 | XMS_ITS | Encounter Summary ---
Author Organization [employer] Address [address] [facility] [address] [place] [address] Care Team Providers Care Bass Guitar Teacher Name Role Phone Scarlett Perez MD Primary Care Provider [phone] Reason for Visit * Reason Onset Date Comments Medication Question 05/24/2025 Encounter Details Date Type Department Care Team ([facility] Contact Info) Description 05/24/2025 Telephone [facility] [address] [place], [place] [phone] Scarlett Perez MD [address] [place] [address] Medication Question Social History Tobacco Use Types [...] the past 12 months, has t he [employer], gas, oil or water company threatened to [...] 10:42 AM EST TC placed to patient [phone] via [employer] (Yoselyn #[id number]) in regards to below message.Patient verbalized understanding [...] 4:33 PM EST TC placed to patient [phone] via [employer] (Todd #[id number]) in regards to below message.Patient reports the [...] on menopause. Any questions contact pt at [phone] documented in this encounter Plan of Treatment Upcoming Encounters Date Type Department Care Team (Late st Contact Info) Description 07/31/2025 9:30 AM EST Office Visit [facility]ULT D[facility] [address] [place] [address] Rohit Ramirez 12/18/2025 9:30 AM EDT Office Visit [facility] [address] [place] [address] Shelby Abraham documented as of this encounter Visit Diagnoses Not on filedocumented in this encounter Additional Health Concerns Assessment Noted Time PHQ-9 Depression Total Score: 0 05/16/20 3:13 PM EDT documented as of this encounter Care Teams Bass Guitar Teacher Relationship Specialty Start Date End Date Scarlett Perez MD [address] [place] [address] PCP - General Family Medicine 12/25/24 documented as of this encounter
== END 2025-07-04 13:17 ==
LOC: HO.US 13:16
PROVIDERS: PCP General Practice; Visit Provider General Practice
DX: R10.21 Pelvic and perineal pain right side (principal)
CPT/HCPCS: 76830; 76856

== ENCOUNTER 2025-07-05 09:56 | Outpatient (AMB) | payer OTHER, SELFPAY ==
--- OUTSIDE RECORDS SUMMARY | 2025-07-03 09:45 | XMS_ITS | Encounter Summary ---
Author Organization [employer] Address [address] [address] [place] [address] Care Team Providers Care Logistic Specialist Name Role Phone Scarlett Perez MD Primary Care Provider [phone] Reason for Visit * Reason Comments Acupuncture Encounter Details Date Type Department Care Team ([facility] Contact Info) Description 07/03/2025 9:45 AM EST Office Visit [facility] MED[facility] [address] [place], [place] [phone] Sandra Allen MD [address] [place] [address] Chronic left shoulder pain (Primary Dx) Social [...] Progress Notes * Sandra Allen MD - 07/03/2025 9:45 AM EST [...] Description 07/31/2025 9:30 AM EST Office Visit [facility] [address] [place] [address] Rohit Ramirez 12/18/2025 9:30 AM EDT Office Visit [facility] [address] [place] [address] Shelby Abraham documented as of this encounter Visit Diagnoses Diagnosis Chronic left shoulder pain- Primary Pain in joint, shoulder region documented in this encounter Additional Health Concerns Assessment Noted Time PHQ-9 Depression Total Score: 0 05/16/20 25 3:13 PM EDT documented as of this encounter Care Teams Logistic Specialist Relationship Specialty Start Date End Date Scarlett Perez MD [address] [place] [address] PCP - General Family Medicine 12/25/24 documented as of this encounter
--- NOTE | 2025-07-05 10:02 | MHC.OFFVIS ---
Vital Signs 07/05/25 10:09 Weight 166 lb Handedness Left Intake Visit Reasons: Left shoulder pain and weakness Intake Note: Bonnie is a 54 year old female who presents with complaints of progressively worsening left shoulder pain and weakness. The patient states that her symptoms have gotten worse over the last few months in spite of continued non operative treatments. She reports difficulty lifting her left hand above shoulder height. She has failed the last 6 weeks of conservative treatment which has included Tylenol, anti-inflammatory medicines, physical therapy exercises and a home exercise program. She denies any numbness or tingling in either of her upper extremities. 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 Services: Registered Nurse Float Pool Present Registered Nurse Float Pool Name: [id number] Rich Allergies amoxicillin Allergy (Intermediate, Verified 07/05/25 10:09) Rash seafood Allergy (Intermediate, Verified 07/05/25 10:09) Difficulty Breathing Medication List - Last Reconciled 07/05/25 by Justus Griffin MD lactulose 10 grams (15 mL) PO DAILY levothyroxine 100 mcg PO DAILY omeprazole 20 mg PO DAILY PFSH Medical History Acquired hypothyroidism Colon cancer screening Dysphagia Epigastric pain Constipation Family History (Updated 05/31/25 @ 10:29 by Candace Edwards CNP) Maternal Aunt Stomach cancer Social History (Updated 05/31/25 @ 10:01 by Niesha Moreno) Household Members: Family Alcohol intake: never Patient Tobacco Use Status: Never used Tobacco Physical Exam Extrem Other: Left shoulder examination shows decreased range of motion when compared to her right shoulder, 4+ out of 5 strength with supraspinatus testing, positive impingement signs, tenderness over her acromioclavicular joint, no instability Results Reviewed Results Reviewed: X-rays of the patient's left shoulder show severe acromioclavicular joint narrowing, a type 3 acromion, no acute bony abnormalities Assessment & Plan Assessment & Plan (1) Rotator cuff insufficiency of left shoulder: Code(s): M25.312 - Other instability, left shoulder Category: Medical Plan Ms. Worthy presents with left shoulder pain and weakness due to impingement syndrome and possible rotator cuff tearing. Thus, I will send the patient for an MRI of her left shoulder for further evaluation. I will see her back once the MRI is completed to discuss the findings and treatment options. Feel free to call me at any time should questions regarding her orthopedic management arise. Thank you very much for asking me to see this very friendly patient. I spent 20 minutes in reviewing the patient's records and imaging studies, seeing the patient and documenting in the medical record. Orders: Orders MR shoulder LT wo con 07/06/25 M25.312 - Other instability, left shoulder Coding Level of Care Code New Pt Level 3 (77052) Add On Problem Visit Only Diagnoses Rotator cuff insufficiency of left shoulder M25.312
--- OUTSIDE RECORDS SUMMARY | 2025-07-05 12:12 | XMS_ITS | Encounter Summary ---
Author Organization [employer] Address 75 [facility] 7t [place] [address] Care Team Providers Care Metrology Technician Name Role Phone Scarlett Perez MD Primary Care Provider [phone] Reason for Referral * Imaging (Routine) - Closed Specialty Diagnoses / Procedures [facility] Referred To Contact Radiology Diagnoses Pelvic pain Procedures US Pelvis Transvaginal Scarlett Perez MD [address] [place] [address] Phone: tel: fax: [facility] [address] [place] [phone] Phone: tel: fax: Referral ID Status Reason Start Date Expiration Date Visits Re quested Visits Authorized [id number] Closed 05/25/2025 05/25/2026 1 1 Encounter Details Date Type Department Care Team (Late st Contact Info) Description 05/25/2025 Orders Only [facility] [address] [place], [place] [phone] Scarlett Perez MD [address] [place] [address] Pelvic pain (Primary Dx) Social History [...] Description 07/31/2025 9:30 AM EST Office Visit [facility]ULT D[facility] [address] [place] [address] Rohit Ramirez 12/18/2025 9:30 AM EDT Office Visit [facility]ULT [facility] [address] [place] [address] Shelby Abraham documented as of this encounter Procedures Procedure Name Priority Date/Time Associated Diagnosis Comments US PELVIS TRANSVAGINAL Routine 07/04/2025 1:53 PM EST Pelvic pain documented in this encounter Results * US Pelvis Transvaginal (07/04/2025 1:53 PM EST) Anatomical Region Laterality Modality Pelvis Ultrasound 07/04/2025 1:53 PM EST Narrative 07/05/2025 11:03 AM EST [address] [address] Ultrasound Report Signed Patient: Bonnie Worthy MR#: [id number] : 1970 Acct:[id number] Age/Sex: 54 / F ADM Date: 07/04/25 Loc: HO.US Attending Dr: Scarlett Perez MD Ordering Physician: Scarlett Perez Date of Service: 07/04/25 Procedure(s): US pelvic and transvaginal Accession Number(s): [id number] cc: Scarlett Perez Reason for Exam: pelvic pain EXAMINATION: US PELVIS TRANSABDOMINAL AND TRANSVAGINAL HISTORY: pelvic pain COMPARISON: There are no prior studies available for comparison. TECHNIQUE: Transabdominal and endovaginal real-time 2D thayer-scale ultrasound was performed. FINDINGS: Uterus: Status post hysterectomy. Ovaries: Bilateral ovaries are not visualized. No mass or fluid collection is seen. Pelvic fluid: none. US/US pelvic and transvaginal IMPRESSION: Status post hysterectomy. Bilateral ovaries are not visualized. No mass or fluid collection is seen. Electronically signed by: Mark Welch MD 07/05/2025 11:00 AM EST Dictated By: Mark Welch MD Signed By: <Electronically signed by Mark Welch MD in OV> 07/05/25 1100 DD/ 1353 TD/TT: 07/04/25 1400 Dormitory Maid: ROMY Procedure Note Donotuseinterpreter, Image - 07/05/[address] [address] Ultrasound Report Signed Patient: Silverio Worthy#: [id number] : 1970Acct:[id number] Age/Sex: 54 / FADM Date: 07/04/25 Loc: HO.US Attending Dr: Scarlett Perez MD Ordering Physician: Scarlett Perez Date of Service: 07/04/25 Procedure(s): US pelvic and transvaginal Accession Number(s): [id number] cc: Scarlett Perez Reason for Exam: pelvic pain EXAMINATION: US PELVIS TRANSABDOMINAL AND TRANSVAGINAL HISTORY: pelvic pain COMPARISON: There are no prior studies available for comparison. TECHNIQUE: Transabdominal and endovaginal real-time 2D thayer-scale ultrasound was performed. FINDINGS: Uterus: Status post hysterectomy. Ovaries: Bilateral ovaries are not visualized. No mass or fluid collection is seen. Pelvic fluid: none. US/US pelvic and transvaginal IMPRESSION: Status post hysterectomy. Bilateral ovaries are not visualized. No mass or fluid collection is seen. Electronically signed by: Mark Welch MD 07/05/2025 11:00 AM [facility] Dictated By: Mark Welch MD Signed By: <Electronically signed by Mark Welch MD in OV> 07/05/25 1100 DD/ 1353 TD/TT: 07/04/25 1400 Dormitory Maid: ROMY us Scarlett Perez MD IMG US PROCEDURES Final Result documented in this encounter Visit Diagnoses Diagnosis Pelvic pain- Primary documented in this encounter Additional Health Concerns Assessment Noted Time PHQ-9 Depression Total Score: 0 05/16/20 3:13 PM EDT documented as of this encounter Care Teams Metrology Technician Relationship Specialty Start Date End Date Scarlett Perez MD [address] [place] [address] PCP - General Family Medicine 12/25/24 documented as of this encounter
--- OUTSIDE RECORDS SUMMARY | 2025-07-05 12:12 | XMS_ITS | Encounter Summary ---
Author Organization [employer] Address 75 [facility] 7t [place] [address] Care Team Providers Care Skeet Operator Name Role Phone Scarlett Perez MD Primary Care Provider [phone] Reason for Visit * Reason Onset Date Comments Med Refill 09/27/2024 Encounter Details Date Type Department Care Team ([facility] st Contact Info) Description 09/27/[address] [facility] MEDICINE [address] [place], [place] [phone] Fermín Hernandez MD [address] [place] [address] Med Refill Social History Tobacco Use Types [...] 100 MCG tablet To be sent to: [facility] [place], [place] - [address] [facility] documented in this encounter Plan of Treatment Upcoming Encounters Date Type Department Care Team (Late st Contact Info) Description 07/31/2025 9:30 AM EST Office Visit [facility] [address] [place] [address] Rohit Ramirez 12/18/2025 9:30 AM EDT Office Visit [facility] [address] [place] [address] Shelby Abraham documented as of this encounter Visit Diagnoses Not on filedocumented in this encounter Care Teams Skeet Operator Relationship Specialty Start Date End Date Scarlett Perez MD [address] [facility] [place] [address] PCP - General Family Medicine 12/25/24 documented as of this encounter
--- OUTSIDE RECORDS SUMMARY | 2025-07-05 12:13 | XMS_ITS | Encounter Summary ---
Author Organization [employer] Address [address] [facility] [address] [place] [address] Care Team Providers Care Table Keeper Name Role Phone Scarlett Perez MD Primary Care Provider [phone] Reason for Visit * Reason Onset Date Comments Medication Question 05/24/2025 Encounter Details Date Type Department Care Team ([facility] st Contact Info) Description 05/24/2025 Telephone [facility]INE [address] [place], [place] [phone] Scarlett Perez MD [address] [place] [address] Medication Question Social History Tobacco Use Types [...] the past 12 months, has t he [employer], gas, oil or water company threatened to [...] 10:42 AM EST TC placed to patient [phone] via [employer] (Yoselyn #[id number]) in regards to below message.Patient verbalized understanding [...] 4:33 PM EST TC placed to patient [phone] via [employer] a [employer] interpre[employer] (Todd #[id number]) in regards to below message.Patient reports the [...] on menopause. Any questions contact pt at [phone] documented in this encounter Plan of Treatment Upcoming Encounters Date Type Department Care Team (Late st Contact Info) Description 07/31/2025 9:30 AM EST Office Visit [facility] [address] [place] [address] Rohit Ramirez 12/18/2025 9:30 AM EDT Office Visit [facility] [address] [place] [address] Shelby Abraham documented as of this encounter Visit Diagnoses Not on filedocumented in this encounter Additional Health Concerns Assessment Noted Time PHQ-9 Depression Total Score: 0 05/16/20 3:13 PM EDT documented as of this encounter Care Teams Table Keeper Relationship Specialty Start Date End Date Scarlett Perez MD [address] [place] [address] PCP - General Family Medicine 12/25/24 documented as of this encounter
--- OUTSIDE RECORDS SUMMARY | 2025-07-05 12:13 | XMS_ITS ---
Attending Dr: Scarlett Perez MD Ordering Physician: Scarlett Perez Date of Service: 07/04/25 Procedure(s): US pelvic and transvaginal Accession Number(s): [id number] cc: Scarlett Perez Reason for Exam: pelvic [...] by: Mark Welch MD 07/05/2025 11:00 AM [facility] Dictated By: Mark Welch MD Signed By: <Electronically signed by Mark Welch MD in OV> 07/05/25 1100 DD/ 1353 TD/TT: 07/04/25 1400 Substation Wireman: ROMY Procedure Note Donotuseinterpreter, Image - 07/05/2025 [place] [address] Ultrasound Report Signed Patient: Silverio Worthy#: [id number] : 1970Acct:[id number] Age/Sex: 54 / FADM Date: 07/04/25 Loc: HO.US Attending Dr: Scarlett Perez MD Ordering Physician: Scarlett Perez Date of Service: 07/04/25 Procedure(s): US pelvic and transvaginal Accession Number(s): [id number] cc: Scarlett Perez Reason for Exam: pelvic [...] 07/05/25 1100 DD/ 1353 TD/TT: 07/04/25 1400 Substation Wireman: ROMY Scarlett Perez MD IMG US PROCEDURES Final Result * (ABNORMAL) TSH W/Reflex to FT4 (06/26/2025 10:15 AM EST) TSH reflex Free T4 5.93(H) 0.32 - 4.0 uIU/mL [facility] Blood Venous blood specimen / Unknown 06/26/2025 10:15 AM EST 06/26/2025 10:58 AM EST Scarlett Perez MD LAB BLOOD ORDERABLES Final Res ult Performing Organization Address [facility] Co de Phone Number [facility] [address] [place] [phone] * T4, Free (06/26/2025 10:15 AM EST) Free T4 (Free Thyroxine) 0.78 0.71 - 1.85 ng/dL [facility] 06/26/2025 10:1 5 AM EST 06/26/2025 10:58 AM EST Scarlett Perez MD LAB BLOOD ORDERABLES Final Res ult [facility] [address] [place] [phone] * XR Chest 2 Views (05/17/2025 10:20 AM EDT) Anatomical Region Laterality Modality Chest Radiographic Jen ging 05/17/2025 10:2 0 AM EDT Narrative 05/17/2025 10:29 AM EDT [address] [address] XRay Report Signed Patient: Bonnie Worthy MR#: [id number] : 1970 Acct:[id number] Age/Sex: 54 / F ADM Date: 05/17/25 Loc: .[facility] Attending Dr: Scarlett Perez MD Ordering Physician: Scarlett Perez Date of Service: 05/17/25 Procedure(s): XR chest 2V Accession Number(s): [id number] cc: Scarlett Perez Reason for Exam: feels [...] 05/17/25 1026 DD/ 1020 TD/TT: 05/17/25 1021 Substation Wireman: Procedure Note Donotuseinterpreter, Image - 05/17/[address] [address] XRay Report Signed Patient: Silverio Worthy#: [id number] : 1970Acct:[id number] Age/Sex: 54 / FADM Date: 05/17/25 Loc: HO.HHCL Attending Dr: Scarlett Perez MD Ordering Physician: Scarlett Perez Date of Service: 05/17/25 Procedure(s): XR chest 2V Accession Number(s): [id number] cc: Scarlett Perez Reason for Exam: feels [...] radiographs of the ribs. Electronically signed by: lEiane Arriaga MD 05/17/2025 10:26 AM EDT Dictated By: Eliane Arriaga MD Signed By: <Electronically signed by Eliane Arriaga MD in OV> 05/17/25 1026 DD/ 1020 TD/TT: 05/17/25 1021 Substation Wireman: Scarlett Perez MD IMG XR PROCEDURES Edited Resul t - Final * Estrogen, Total, Serum (05/17/2025 9:58 AM EDT) Estrogen, Total, Serum 37 pg/mL [facility] Comment:Reference Ranges for Total Estrogen: Follicular Phase: 51-601 Luteal Phase: 87-1194 Postmenopausal: < or = 214THIS TEST WAS PERFORMED AT:[employer] [id number] FERNIE BARRIENTOS [phone] ASH MD,PHD,MERA Blood Venous blood specimen / Unknown 05/17/2025 9:58 AM EDT 05/17/2025 11:30 AM EDT Scarlett Perez MD LAB BLOOD ORDERABLES Final Res ult Performing Organization Address [facility] Co de Phone Number [facility] [address] [place] [phone] * Hemoglobin A1c (05/17/2025 9:58 AM EDT) Hemoglobin A1c 6.0 <6.0 % [facility] Comment:Hemoglobin A1C Refer ence Range Adults: 4.8 - 6.0 % Non diabetic: < 6.0 % Goal: < 7.0 %Additional Action Suggested: > 8.0 %Note: Hemoglobin A1c results are invalid for patients with abnormal amounts of HbF. Blood transfusions may impact the HbA1c concentration in the patient sample. Estimated Average Glucose 126 mg/dL [facility] Comment:eAG = Estimated ave rage glucose which is %A1C expressed asaverage glucose, using the formula of the R1J-RpphjjxYmtbpzj Glucose study (ADAG), Diabetes Care, Vol.31,#8,2007 Blood Venous blood specimen / Unknown 05/17/2025 9:58 AM EDT 05/17/2025 11:30 AM EDT Scarlett Perez MD LAB BLOOD ORDERABLES Final Res ult Performing Organization Address [facility] Co de Phone Number [facility] [address] [place] [phone] * LH (05/17/2025 9:58 AM EDT) Lutenizing Hormone 31.9 mIU/mL [facility] Comment:Reference Range Foll icular Phase 1.9-12.5 Mid-Cycle Peak 8.7-76.3 Luteal Phase 0.5-16.9 Postmenopausal 10.0-54.7THIS TEST WAS PERFORMED AT:[employer] [place] [id number] TERRY MD Blood Venous blood specimen / Unknown 05/17/2025 9:58 AM EDT 05/17/2025 11:30 AM EDT Scarlett Perez MD LAB BLOOD ORDERABLES Final Res ult Performing Organization Address [facility] de Phone Number [facility] [address] [place] [phone] * FSH (05/17/2025 9:58 AM EDT) Follicle Stimulating Hormone 49.0 mIU/mL [facility] Comment:Reference Range Foll icular Phase 2.5-10.2 Mid-cycle Peak 3.1-17.7 Luteal Phase 1.5- 9.1 Postmenopausal 23.0-116.3THIS TEST WAS PERFORMED AT:[employer] [place] [phone] TERRY MD Blood Venous blood specimen / Unknown 05/17/2025 9:58 AM EDT 05/17/2025 11:30 AM EDT Scarlett Perez MD LAB BLOOD ORDERABLES Final Res ult Performing Organization Address [facility] Co de Phone Number [facility] [address] [place] [phone] * POCT Glucose (05/16/2025 2:53 PM [...] PM EDT Narrative 04/24/2025 12:24 PM EDT [address] XRay Report Signed Patient: Bonnie Worthy MR#: [id number] : 1970 Acct:[id number] Age/Sex: 54 / F ADM Date: 04/24/25 Loc: TRIPX Attending Dr: Scott Jarvis MD Ordering Physician: SCOTT JARVIS MD Date of Service: 04/24/25 Procedure(s): XR shoulder LT min 2V Accession Number(s): [id number] cc: SCOTT JARVIS MD Reason for Exam: atraumatic left shoulder [...] 04/24/25 1222 DD/ 1217 TD/TT: 04/24/25 1217 Substation Wireman: Procedure Note Donotuseinterpreter, Image - 04/24/[address] [address] XRay Report Signed Patient: Silverio Worthy#: [id number] : 1970Acct:[id number] Age/Sex: 54 / FADM Date: 04/24/25 Loc: TAMELA Attending Dr: Scott Jarvis MD Ordering Physician: SCOTT JARVIS MD Date of Service: 04/24/25 Procedure(s): XR shoulder LT min 2V Accession Number(s): [id number] cc: SCOTT JARVIS MD Reason for Exam: atraumatic left shoulder [...] 04/24/25 1222 DD/ 1217 TD/TT: 04/24/25 1217 Substation Wireman: Scott Jarvis MD IMG XR PROCEDURES Final Result * Influenza B (ID NOW Rapid Molecular) (04/24/2025 11:50 AM EDT) Influenza B Negative Negative, Indeterminate [facility] Swab 04/24/2025 11:5 0 AM EDT Scott Jarvis MD POINT OF CARE TEST ENTER/EDIT OR DERABLES Final Result [facility] [address] [place] [phone] * Influenza A (ID NOW Rapid Molecular) (04/24/2025 11:50 AM EDT) Pathologist [facility] Influenza A Negative Negative, Indeterminate [facility] Swab 04/24/2025 11:5 0 AM EDT us Scott Jarvis MD POINT OF CARE TEST ENTER/EDIT OR DERABLES Final Result Performing Organization Address City/[facility]/ZIP Co de Phone Number [facility] [address] [place] [phone] * POCT Rapid COVID Ag (04/24/2025 11:50 AM EDT) Rapid COVID Ag Negative [facility] Swab 04/24/2025 11:5 0 AM EDT us Scott Jarvis MD POINT OF CARE TEST ENTER/EDIT OR DERABLES Final Result Performing Organization Address [facility] Co de Phone Number [facility] [address] [place] [phone] from Last 3 Months Insurance [facility] Address: [facility] [address] [place] [address] DENTAL - HSN PARTIAL (MEDICAID) Care Teams Day Light Relief Operator Relationship Specialty Start Date End Date Scarlett Perez MD [address] [place] [phone] PCP - General Family Medicine 12/25/24 Clinical Summary Created on: July 05, 2025 Bonnie Gutierrez : 1970 Sex: Female Author Organization [employer] Address [address] [place] [address] [address] [place] [address] Care Team Providers Care Day Light Relief Operator Name Role Phone Scarlett Perez MD Primary Care Provider Allergies Active Allergy Reactions Criticality Noted Date [...] times daily. 60 tablet 11 02/09/20 25 Active fluticasone (Flonase Allergy Relief) 50 MCG/ACT nasal spray Administer 1 spray into each nostril Once per day. Shake gently. Before first use, prime pump. After use, clean tip and replace cap. 16 g 12 04/24/20 25 Active albuterol 108 (90 Base) MCG/ACT inhaler Inhale 2 puffs every 4 (four) hours if needed for wheezing or shortness of breath. 18 g 1 04/24/20 25 Active Spacer/Aero-Hold ing Chambers (OptiChamber Nicole) misc 1 each every 4 (four) hours if needed (asthma). 1 each 04/24/20 25 Active omeprazole (PriLOSEC) [address] capsule Take 20 mg by mouth Once per day. 12/28/19 25 Active ibuprofen 600 MG tabletIndication s:Pelvic pain Take 1 tablet (600 mg) by mouth every 6 (six) hours if needed for mild pain for up to 20 doses. 20 tablet 05/16/20 25 Active predniSONE (Deltasone) 20 MG tabletIndication [...] 2 5 3:11 PM EST 06/29/20 25 Active levothyroxine (Synthroid) 100 MCG tabletIndication s:H/O [...] Description 07/03/2025 9:45 AM EST Office Visit [facility] [address] [place], [place] [phone] Sandra Allen MD Chronic left shoulder pain (Primary Dx) 07/03/2025 Travel 06/29/2025 2:20 PM EST Office Visit [facility] [address] [place] [address] Linnea Sanchez NP Hypothyroidism, unspecified type (Primary Dx) 06/29/2025 Travel 06/26/2025 9:30 AM EST Office Visit [address] [address] Sandra Allen MD Chronic left shoulder pain (Primary Dx) 06/26/2025 Orders Only [address] [address] Scarlett Perez MD 06/26/2025 Travel 06/19/2025 10:15 AM EST Office Visit [facility] [address] [place] [address] Shelby Abraham Dental calculus (Primary Dx); Dental plaque 06/12/2025 9:30 AM EST Office Visit [address] [address] Sandra Allen MD Chronic left shoulder pain (Primary Dx) 06/12/2025 Orders Only [address] [address] Scarlett Perez MD H/O thyroidectomy (Primary Dx) 06/12/[address] [address] Scarlett Perez MD telephone call 06/12/2025 Travel 06/07/2025 Telephone [facility] [address] [place] [phone] Rohit Ramirez insurance discrepancy rs appt 06/05/2025 9:30 AM EST Office Visit [address] [address] Sandra Allen MD Chronic left shoulder pain (Primary Dx) 06/05/2025 Travel 05/29/2025 9:15 AM EST Office Visit [address] [address] Sandra Allen MD Chronic left shoulder pain (Primary Dx) 05/29/[address] [address] Scarlett Perez MD telephone call 05/29/2025 Travel 05/25/2025 Orders Only [address] [address] Scarlett Perez MD Pelvic pain (Primary Dx) 05/25/2025 Telephone [facility] [address] [place] [phone] Scarlett Perez MD 05/24/2025 Telephone [facility] [address] [place] [phone] Scarlett Perez MD Medication Question 05/22/[address] [address] Scarlett Perez MD 05/17/2025 10:30 AM EDT Office Visit [facility] [address] [place] [address] Sandra Allen MD Chronic left shoulder pain (Primary Dx) 05/17/2025 Travel 05/16/2025 3:00 PM EDT Office Visit [facility] [address] [place] [address] Scarlett Perez MD Prediabetes (Primary Dx); Facial swelling; Second hand smoke exposure; Symptoms, such as flushing, sleeplessness, headache, lack of concentration, associated with the menopause; H/O thyroidectomy; Pelvic pain; Encounter for immunization; Screening for colon cancer; Vocal cord dysfunction 05/16/2025 Travel 05/15/[address] [address] Scarlett Perez MD chart prep 05/03/2025 10:30 AM EDT Office Visit [facility] [address] [place] [address] Serene Ellsworth OD Presbyopia (Primary Dx); Pterygium, right; Pinguecula of left eye; Combined forms of age-related cataract of both eyes 05/03/2025 Travel 04/24/2025 10:40 AM EDT Office Visit [facility] [address] [place] [address] Scott Jarvis MD Chronic left shoulder pain (Primary Dx); [...] 9:30 AM EST Office Visit [facility] [address] [place] [address] Rohit Ramirez 12/18/2025 9:30 AM EDT Office Visit [facility] [address] [place] [address] Shelby Abraham Health Maintenance Due Date Last [...] Screening 05/16/2026 05/16/2025, 05/16/2025 Diabetes: Hemoglobin A1C 05/17/2026 025, 09/25/2024, 02/25/2024 Dental X-Ray: Bitewings 06/20/2026 [...] Routine 07/04/2025 1:53 PM EST Pelvic pain T4, FREE Routine 06/26/2025 10:15 AM EST [...] Recently Relevant to Health Maintenance Results * US Pelvis Transvaginal (07/04/2025 1:53 PM EST) Anatomical Region Laterality Modality Pelvis Ultrasound 07/04/2025 1:53 PM EST Narrative 07/05/2025 11:03 AM EST [address] [address] Ultrasound Report Signed Patient: Bonnie Worthy MR#: [id number] : 1970 Acct:[id number] Age/Sex: 54 / F ADM Date: 07/04/25 Loc: HO.US
--- OUTSIDE RECORDS SUMMARY | 2025-07-05 12:13 | XMS_ITS | Encounter Summary ---
Author Organization [employer] Address [address] [place] [address] Care Team Providers Care Bow Maker Name Role Phone Scarlett Perez MD Primary Care Provider [phone] Encounter Details Date Type Department Care Team ([facility] st Contact Info) Description 06/12/2025 Orders Only [facility] [address] [place], [place] [phone] Scarlett Perez MD [address] [place], [place] [phone] H/O thyroidectomy (Primary Dx) Social History Tobacco [...] your housing situation today? I have arsh awng 01/08/[address] you li [...] 9:30 AM EST Office Visit [facility] [address] [place] [address] Rohit Ramirez 12/18/2025 9:30 AM EDT Office Visit [facility] [address] [place] [address] Shelby Abraham documented as of this encounter Procedures Procedure Name Priority Date/Time Associated Diagnosis Comments TSH W/REFLEX TO FT4 Routine 06/26/2025 10:15 AM EST H/O thyroidectomy documented in this encounter Results * (ABNORMAL) TSH W/Reflex to FT4 (06/26/2025 10:15 AM EST) TSH reflex Free T4 5.93(H) 0.32 - 4.0 uIU/mL [facility] Blood Venous blood specimen / Unknown 06/26/2025 10:15 AM EST 06/26/2025 10:58 AM EST us Scarlett Perez MD LAB BLOOD ORDERABLES Final Res ult [facility] [address] [place] [address] [phone] documented in this encounter Visit Diagnoses Diagnosis H/O thyroidectomy- Primary documented in this encounter Additional Health Concerns Assessment Noted Time PHQ-9 Depression Total Score: 0 05/16/20 3:13 PM EDT documented as of this encounter Care Teams Bow Maker Relationship Specialty Start Date End Date Scarlett Perez MD [address] [place] [address] PCP - General Family Medicine 12/25/24 documented as of this encounter
--- OUTSIDE RECORDS SUMMARY | 2025-07-05 12:13 | XMS_ITS | Encounter Summary ---
Author Organization [employer] Address [address] [place] [address] Care Team Providers Care Home Service Advisor Name Role Phone Scarlett Perez MD Primary Care Provider [phone] Reason for Visit * Reason Onset Date Comments insurance discrepancy rs appt 06/07/2025 Encounter Details Date Type Department Care Team ([facility] st Contact Info) Description 06/07/2025 Telephone [facility] [address] [place] [address] Rohit Ramirez insurance discrepancy rs appt Social [...] verification MMIS Partial Health Safety Net Portal [employer]. documented in this encounter Plan of Treatment Upcoming Encounters Date Type Department Care Team (Late st Contact Info) Description 07/31/2025 9:30 AM EST Office Visit [facility] [address] [place] [address] Rohit Ramirez 12/18/2025 9:30 AM EDT Office Visit [facility] [address] [place] [address] Shelby Abraham documented as of this encounter Visit Diagnoses Not on filedocumented in this encounter Additional Health Concerns Assessment Noted Time PHQ-9 Depression Total Score: 0 05/16/20 25 3:13 PM EDT documented as of this encounter Care Teams Home Service Advisor Relationship Specialty Start Date End Date Scarlett Perez MD [address] [place] [phone] PCP - General Family Medicine 12/25/24 documented as of this encounter
--- OUTSIDE RECORDS SUMMARY | 2025-07-05 12:13 | XMS_ITS | Patient Health Record ---
Author Organization [facility] Address [address] [place] [phone] Care Team Providers Care Business Associate Name Role Phone MELVIN STORY Primary Care [...] Status Risk Notes Problem Chronic idiopathic constipation (75317997) Chronic idiopathic constipation (K59.04) Active confirmed Plan Of Treatment No Information Insurance Providers Payer Name Payer Address Payer Phone Subscriber Number Group Number Insured Name Patient Relationship to Insured Coverage Start Date Coverage End Date [facility] [address] [place] [address] [id number] Bonnie Jean Self - patient is the insured MEDICAID [address] [place] [address] [id number] Bonnie Jean Self - patient is the insured Medical (General) History Medical History History ICD Code hypothyroidism Surgical History Surgery Date(Month/Year) thyroidectomy
--- OUTSIDE RECORDS SUMMARY | 2025-07-05 12:13 | XMS_ITS | Encounter Summary ---
Author Organization [employer] Address [address] [place] [address] Care Team Providers Care Keyboard Operator Name Role Phone Scarlett Perez MD Primary Care Provider [phone] Encounter Details Date Type Department Care Team [...] Description 07/31/2025 9:30 AM EST Office Visit [facility] [address] [place] [address] Rohit Ramirez 12/18/2025 9:30 AM EDT Office Visit [facility] [address] [place] [address] Shelby Abraham documented as of this encounter Visit Diagnoses Not on filedocumented in this encounter Additional Health Concerns Assessment Noted Time PHQ-9 Depression Total Score: 0 05/16/20 25 3:13 PM EDT documented as of this encounter Care Teams Keyboard Operator Relationship Specialty Start Date End Date Scarlett Perez MD [address] [place] [phone] PCP - General Family Medicine 12/25/24 documented as of this encounter
== END 2025-07-05 10:25 | disposition home or self-care (01) ==
LOC: HO.HOS 09:56
PROVIDERS: PCP General Practice; Visit Provider Orthopaedic Surgery
DX: M25.312 Other instability, left shoulder (principal)
CPT/HCPCS: 99203

== ENCOUNTER → 2025-07-05 09:56 | Outpatient (BNVA) | payer OTHER, SELFPAY | PROVIDERS: PCP General Practice; Visit Provider Orthopaedic Surgery | DX: M75.42 Impingement syndrome of left shoulder (principal); M25.312 Other instability, left shoulder | CPT/HCPCS: 99202 ==

== ENCOUNTER 2025-07-10 08:55 | Outpatient (AMB) | payer OTHER, SELFPAY ==
[2025-07-10 09:08] VITALS: BMI 27.0
--- NOTE | 2025-07-10 09:08 | A.OFFVIS_ITS ---
Vital Signs 07/10/25 09:08 Height 5 ft 5 in Weight 162 lb BMI 27.0 Intake Visit Reasons: New prob- LT RF Locking & Catching Intake Note: Bonnie is a 54 year old left hand dominant Indian speaking female who presents today for a New Problem Visit complaining of Left Ring Finger Locking & Catching. Patient reports for the last 5 months she has been waking up with left hand swelling. She explains her left ring finger locks up when doing activities like writing. She takes Tylenol PRN or Ibuprofen PRN with minimal relief. She explains she does not tolerate Ibuprofen well. She denies any previous treatments or injuries. 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 Launch Engineer Required: Yes Launch Engineer Language: Electrostatic Paint Operator Name: [id number] Jakub Allergies amoxicillin Allergy (Intermediate, Verified 07/10/25 09:09) Rash seafood Allergy (Intermediate, Verified 07/10/25 09:09) Difficulty Breathing HPI HPI New prob- LT RF Locking & Catching: Details: Bonnie is a 54 year old left hand dominant Indian speaking female who presents today for a New Problem Visit complaining of Left Ring Finger Locking & Catching. Patient reports for the last 5 months she has been waking up with left hand swelling. She explains her left ring finger locks up when doing activities like writing. Of note, the patient also reports intermittent but daily, but worse at night and early in the morning numbness and tingling in the left hand. She takes Tylenol PRN or Ibuprofen PRN with minimal relief. She explains she does not tolerate Ibuprofen well. She denies any previous treatments or injuries. 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 Neuro: Normal sensation of the tips of all digits of the left hand at this time Vascular: Cap refill brisk Pain: Minimal tenderness to palpation of the A1 usha of the left ring finger Pain associated with locking and catching of the left ring finger ROM: There is a visible and palpable locking and catching of the left ring finger Patient is able to flex and extend all other digits of the left hand fully and without difficulty Skin: No lacerations or abrasions. General: No ecchymosis, erythema, or evidence of infection. Psych: Appears grossly normal Affect normal Attitude cooperative Assessment & Plan Assessment & Plan (1) Trigger finger, left ring finger: Code(s): M65.342 - Trigger finger, left ring finger Category: Medical (2) Numbness and tingling of left hand: Code(s): R20.0 - Anesthesia of skin; R20.2 - Paresthesia of skin Category: Medical Plan 1. Numbness and tingling of left hand Symptoms intermittent, daily, worse at night Patient is educated about this condition Patient is educated about the typical diagnostic and treatment course EMG and nerve conduction study ordered today to assess the health of the nerves of the left upper extremity Follow-up after EMG for results review and discussion of further treatment options if indicated Patient understands this and is amenable to this plan 2. Left ring finger trigger finger Patient is educated about this condition Patient is educated about the treatment options available Patient would not like a steroid injection at this time, would like to move forward with surgical intervention However, after educated on potential carpal tunnel syndrome and treatment options, and learning that we can do both surgeries at the same time if needed, patient would like to hold off on surgical intervention for the left ring finger trigger finger until after EMG and nerve conduction study Orders: Orders NE nerve conduction velocity Today R20.0 - Anesthesia of skin, R20.2 - Paresthesia of skin NE electromyogram (EMG) Today R20.0 - Anesthesia of skin, R20.2 - Paresthesia of skin Coding Level of Care Code New Pt Level 3 (43078) Diagnoses Trigger finger, left ring finger M65.342 Numbness and tingling of left hand R20.0; R20.2
--- OUTSIDE RECORDS SUMMARY | 2025-07-10 09:17 | XMS_ITS | Encounter Summary ---
Author Organization [employer] Address [address] 7t [place] [address] Care Team Providers Care Sample Mounter Name Role Phone Scarlett Perez MD Primary Care Provider Encounter Details Date Type Department Care Team ([facility] st Contact Info) Description 06/12/2025 Orders Only [facility] [address] [place], [place] [phone] Scarlett Perez MD [address] [place], [place] [phone] H/O thyroidectomy (Primary Dx) Social History Tobacco [...] Visit [facility] [address] [place] [address] Rohit Ramirez 12/18/2025 9:30 AM EDT Office Visit [facility] [address] [place] [address] Shelby Abraham documented as of this encounter Procedures Procedure Name Priority Date/Time Associated Diagnosis Comments TSH W/REFLEX TO FT4 Routine 06/26/2025 10:15 AM EST H/O thyroidectomy documented in this encounter Results * (ABNORMAL) TSH W/Reflex to FT4 (06/26/2025 10:15 AM EST) TSH reflex Free T4 5.93(H) 0.32 - 4.0 uIU/mL [facility] Blood Venous blood specimen / Unknown 06/26/2025 10:15 AM EST 06/26/2025 10:58 AM EST us Scarlett Perez MD LAB BLOOD ORDERABLES Final Res ult [facility] [address] [place] [phone] [phone] documented in this encounter Visit Diagnoses Diagnosis H/O thyroidectomy- Primary documented in this encounter Additional Health Concerns Assessment Noted Time PHQ-9 Depression Total Score: 0 05/16/20 3:13 PM EDT documented as of this encounter Care Teams Sample Mounter Relationship Specialty Start Date End Date Scareltt Perez MD [address] [place] [address] PCP - General Family Medicine 12/25/24 documented as of this encounter
--- OUTSIDE RECORDS SUMMARY | 2025-07-10 09:17 | XMS_ITS | Clinical Summary ---
Author Organization [employer] Address [address] [facility] 7t [place] [address] Care Team Providers Care Time Stamp Assembler Name Role Phone Scarlett Perez MD Primary Care Provider [phone] Allergies Active Allergy Reactions Criticality Noted Date [...] Encounters Date Type Department Care Team Description 07/05/2025 Results Follow-Up [facility] [address] [place] [address] Scarlett Perez MD US Pelvis Transvaginal 07/03/2025 9:45 AM EST Office Visit [facility] [place] [address] Sandra Allen MD Chronic left shoulder pain (Primary Dx) 07/03/2025 Travel 06/29/2025 2:20 PM EST Office Visit [facility] [place] [address] Linnea Sanchez NP Hypothyroidism, unspecified type (Primary Dx) 06/29/2025 Travel 06/26/2025 9:30 AM EST Office Visit [facility] [place] [address] Sandra Allen MD Chronic left shoulder pain (Primary Dx) 06/26/2025 Orders Only [facility] [address] [place] [address] [place] [address] Scarlett Perez MD 06/26/2025 Travel 06/19/2025 10:15 AM EST Office Visit [facility] [address] [place] [address] Shelby Abraham Dental calculus (Primary Dx); Dental plaque 06/12/2025 9:30 AM EST Office Visit [facility] [address] [place] [address] Sandra Allen MD Chronic left shoulder pain (Primary Dx) 06/12/2025 Orders Only [facility] [address] [place] [address] Scarlett Perez MD H/O thyroidectomy (Primary Dx) 06/12/[address] [address] Scarlett Perez MD telephone call 06/12/2025 Travel 06/07/2025 Telephone [facility] [address] [place] [address] Rohit Ramirez insurance discrepancy rs appt 06/05/2025 9:30 AM EST Office Visit [facility] [address] [place] [address] Sandra Allen MD Chronic left shoulder pain (Primary Dx) 06/05/2025 Travel 05/29/2025 9:15 AM EST Office Visit [facility] [address] [place] [address] Sandra Allen MD Chronic left shoulder pain (Primary Dx) 05/29/2025 Telephone [facility] [address] [place] [address] Scarlett Perez MD telephone call 05/29/2025 Travel 05/25/2025 Orders Only [facility] [address] [place] [address] Scarlett Perez MD Pelvic pain (Primary Dx) 05/25/2025 Telephone [facility] [address] [place] [address] Scarlett Perez MD 05/24/[address] [address] Scarlett Perez MD Medication Question 05/22/2025 Telephone [facility] [address] [place] [address] Scarlett Perez MD 05/17/2025 10:30 AM EDT Office Visit [facility] [address] [place] [address] Sandra Allen MD Chronic left shoulder pain (Primary Dx) 05/17/2025 Travel 05/16/2025 3:00 PM EDT Office Visit [facility] [address] [place] [address] Scarlett Perez MD Prediabetes (Primary Dx); Facial swelling; Second hand smoke exposure; Symptoms, such as flushing, sleeplessness, headache, lack of concentration, associated with the menopause; H/O thyroidectomy; Pelvic pain; Encounter for immunization; Screening for colon cancer; Vocal cord dysfunction 05/16/2025 Travel 05/15/2025 Telephone [facility] [address] [place] [address] Scarlett Perez MD chart prep 05/03/2025 10:30 AM EDT Office Visit [facility] [address] [place] [address] Serene [place], TRISHA Presbyopia (Primary Dx); Pterygium, right; Pinguecula of left eye; Combined forms of age-related cataract of both eyes 05/03/2025 Travel 04/24/2025 10:40 AM EDT Office Visit [facility] [address] [place] [address] Scott Jarvis MD Chronic left shoulder pain [...] [facility] [address] [place] [address] Rohit Ramirez 12/18/2025 9:30 AM EDT Office Visit [facility] [address] [place] [address] Shelby Abraham Health Maintenance Due Date Last [...] 9:58 AM EDT Pelvic pain POCT GLUCOSE ([id number]) Routine 05/16/2025 2:53 PM EDT Prediabetes XR [...] PM EST Narrative 07/05/2025 11:03 AM EST [address] [address] Ultrasound Report Signed Patient: Bonnie Worthy MR#: [id number] : 1970 Acct:[id number] Age/Sex: 54 / F ADM Date: 07/04/25 Loc: HO.US Attending Dr: Scarlett Perez MD Ordering Physician: Scarlett Perez Date of Service: 07/04/25 Procedure(s): US pelvic and transvaginal Accession Number(s): [id number] cc: Scarlett Perez Reason for Exam: pelvic [...] 07/05/2025 11:00 AM [facility] Dictated By: Mark Welch MD Signed By: <Electronically signed by Mark Welch MD in OV> 07/05/25 1100 DD/ 1353 TD/TT: 07/04/25 1400 Edge Gluer: Procedure Note Donotuseinterpreter, Image - 07/05/[address] [address] Ultrasound Report Signed Patient: Silverio Worthy#: [id number] : 1970Acct:[id number] Age/Sex: 54 / FADM Date: 07/04/25 Loc: .US Attending Dr: Scarlett Perez MD Ordering Physician: Scarlett Perez Date of Service: 07/04/25 Procedure(s): US pelvic and transvaginal Accession Number(s): [id number] cc: Scarlett Perez Reason for Exam: pelvic [...] 07/05/25 1100 DD/ 1353 TD/TT: 07/04/25 1400 Edge Gluer: HB us Scarlett Perez MD IMG US PROCEDURES Final Result * (ABNORMAL) TSH W/Reflex to FT4 (06/26/2025 10:15 AM EST) TSH reflex Free T4 5.93(H) 0.32 - 4.0 uIU/mL [facility] Blood Venous blood specimen / Unknown 06/26/2025 10:15 AM EST 06/26/2025 10:58 AM EST us Scarlett Perez MD LAB BLOOD ORDERABLES Final Res ult [facility] [address] [place] [phone] * T4, Free (06/26/2025 10:15 AM EST) Free T4 (Free Thyroxine) 0.78 0.71 - 1.85 ng/dL [facility] 06/26/2025 10:1 5 AM EST 06/26/2025 10:58 AM EST us Scarlett Perez MD LAB BLOOD ORDERABLES Final Res ult [facility] [address] [place] [phone] * XR Chest 2 Views (05/17/2025 10:20 AM EDT) Anatomical Region Laterality Modality Chest Radiographic Jen ging 05/17/2025 10:2 0 AM EDT Narrative 05/17/2025 10:29 AM EDT [address] [address] XRay Report Signed Patient: Bonnie Worthy MR#: [id number] : 1970 Acct:[id number] Age/Sex: 54 / F ADM Date: 05/17/25 Loc: [facility] Attending Dr: Scarlett Perez MD Ordering Physician: Scarlett Perez Date of Service: 05/17/25 Procedure(s): XR chest 2V Accession Number(s): [id number] cc: Scarlett Perez Reason for Exam: feels [...] 05/17/25 1026 DD/ 1020 TD/TT: 05/17/25 1021 Edge Gluer: Procedure Note Donotuseinterpreter, Image - 05/17/[address] [address] XRay Report Signed Patient: Silverio Worthy#: [id number] : 1970Acct:[id number] Age/Sex: 54 / FADM Date: 05/17/25 Loc: HO[facility] Attending Dr: Scarlett Perez MD Ordering Physician: Scarlett Perez Date of Service: 05/17/25 Procedure(s): XR chest 2V Accession Number(s): [id number] cc: Scarlett Perez Reason for Exam: feels [...] 05/17/25 1026 DD/ 1020 TD/TT: 05/17/25 1021 Edge Gluer: us Scarlett Perez MD IMG XR PROCEDURES Edited Resul t - Final * Estrogen, Total, Serum (05/17/2025 9:58 AM EDT) Estrogen, Total, Serum 37 pg/mL [facility] Comment:Reference Ranges for Total Estrogen: Follicular Phase: 51-601 Luteal Phase: 87-1194 Postmenopausal: < or = 214THIS TEST WAS PERFORMED AT:[facility] [id number] FERNIE BARRIENTOS [id number] ASH MD,PHD,MERA Blood Venous blood specimen / Unknown 05/17/2025 9:58 AM EDT 05/17/2025 11:30 AM EDT Scarlett Perez MD LAB BLOOD ORDERABLES Final Res ult Performing Organization Address [facility] Co de Phone Number [facility] [address] [place] [address] [phone] * Hemoglobin A1c (05/17/2025 9:58 AM EDT) Hemoglobin A1c 6.0 <6.0 % [facility] Comment:Hemoglobin A1C Refer ence Range Adults: 4.8 - 6.0 % Non diabetic: < 6.0 % Goal: < 7.0 %Additional Action Suggested: > 8.0 %Note: Hemoglobin A1c results are invalid for patients with abnormal amounts of HbF. Blood transfusions may impact the HbA1c concentration in the patient sample. Estimated Average Glucose 126 mg/dL [facility] Comment:eAG = Estimated ave rage glucose which is %A1C expressed asaverage glucose, using the formula of the O7N-DiawmbpXqvfadb Glucose study (ADAG), Diabetes Care, Vol.31,#8,2007 Blood Venous blood specimen / Unknown 05/17/2025 9:58 AM EDT 05/17/2025 11:30 AM EDT Scarlett Perez MD LAB BLOOD ORDERABLES Final Res ult Performing Organization Address [facility] Co de Phone Number [facility] [address] [place] [address] [phone] * LH (05/17/2025 9:58 AM EDT) Lutenizing Hormone 31.9 mIU/mL [facility] Comment:Reference Range Foll icular Phase 1.9-12.5 Mid-Cycle Peak 8.7-76.3 Luteal Phase 0.5-16.9 Postmenopausal 10.0-54.7THIS TEST WAS PERFORMED AT:[facility] [address] [id number] TERRY MD Blood Venous blood specimen / Unknown 05/17/2025 9:58 AM EDT 05/17/2025 11:30 AM EDT Scarlett Perez MD LAB BLOOD ORDERABLES Final Res ult Performing Organization Address [facility] Phone Number [facility] [address] [place] [phone] * FSH (05/17/2025 9:58 AM EDT) Follicle Stimulating Hormone 49.0 mIU/mL [facility] Comment:Reference Range Foll icular Phase 2.5-10.2 Mid-cycle Peak 3.1-17.7 Luteal Phase 1.5- 9.1 Postmenopausal 23.0-116.3THIS TEST WAS PERFORMED AT:[facility] [address] [id number] TERRY MD Blood Venous blood specimen / Unknown 05/17/2025 9:58 AM EDT 05/17/2025 11:30 AM EDT Scarlett Perez MD LAB BLOOD ORDERABLES Final Res ult Performing Organization Address [facility] de Phone Number [facility] [address] [place] [phone] * POCT Glucose (05/16/2025 2:53 PM [...] PM EDT Narrative 04/24/2025 12:24 PM EDT [address] [address] XRay Report Signed Patient: Bonnie Worthy MR#: [id number] : 1970 Acct:[id number] Age/Sex: 54 / F ADM Date: 04/24/25 Loc: HO.[facility]X Attending Dr: Scott Jarvis MD Ordering Physician: SCOTT JARVIS MD Date of Service: 04/24/25 Procedure(s): XR shoulder LT min 2V Accession Number(s): [id number] cc: SCOTT JARVIS MD Reason for Exam: [...] 04/24/25 1222 DD/ 1217 TD/TT: 04/24/25 1217 Edge Gluer: Procedure Note Donotjuanter, Image - 04/24/[address] [address] XRay Report Signed Patient: Silverio Worthy#: [id number] : 1970Acct:[id number] Age/Sex: 54 / FADM Date: 04/24/25 Loc: HO.HHCX Attending Dr: Scott Jarvis MD Ordering Physician: SCOTT JARVIS MD Date of Service: 04/24/25 Procedure(s): XR shoulder LT min 2V Accession Number(s): [id number] cc: SCOTT JARVIS MD Reason for Exam: [...] 04/24/25 1222 DD/ 1217 TD/TT: 04/24/25 1217 Edge Gluer: Scott Jarvis MD IMG XR PROCEDURES Final Result * Influenza B (ID NOW Rapid Molecular) (04/24/2025 11:50 AM EDT) Influenza B Negative Negative, Indeterminate [facility] Swab 04/24/2025 11:5 0 AM EDT Scott Jarvis MD POINT OF CARE TEST ENTER/EDIT OR DERABLES Final Result [facility] [address] [place] [phone] * Influenza A (ID NOW Rapid Molecular) (04/24/2025 11:50 AM EDT) Influenza A Negative Negative, Indeterminate [facility] Swab 04/24/2025 11:5 0 AM EDT us Scott Jarvis MD POINT OF CARE TEST ENTER/EDIT OR DERABLES Final Result [facility] [address] [place] [address] [phone] * POCT Rapid COVID Ag (04/24/2025 11:50 AM EDT) Rapid COVID Ag Negative [facility] Swab 04/24/2025 11:5 0 AM EDT us Scott Jarvis MD POINT OF CARE TEST ENTER/EDIT OR DERABLES Final Result Performing Organization Address City/[facility] Co de Phone Number [facility] [address] [place] [address] [phone] from Last 3 Months Insurance [facility] 2 DENTAL - HSN PARTIAL (MEDICAID) Care Teams Time Stamp Assembler Relationship Specialty Start Date End Date Scarlett Perez MD [address] [place] [phone] PCP - General Family Medicine 12/25/24
--- OUTSIDE RECORDS SUMMARY | 2025-07-10 09:17 | XMS_ITS | Encounter Summary ---
Author Organization [employer] Address [address] [facility] 7t [place] [address] Care Team Prov[address] Care Court Magistrate Name Role Phone Scarlett Perez MD Primary Care Provider [phone] Reason for Referral * Imaging (Routine) - Closed Specialty Diagnoses / Procedures [facility] Referred To Contact Radiology Diagnoses Pelvic pain Procedures US Pelvis Transvaginal Scarlett Perez MD [address] [place] [phone] Phone: tel: fax: [facility] [address] [place] [phone] Phone: tel: fax: Referral ID Status Reason Start Date Expiration Date Visits Re quested Visits Authorized [id number] Closed 05/25/2025 05/25/2026 1 1 Encounter Details Date Type Department Care Team (Late st Contact Info) Description 05/25/2025 Orders Only [facility] [address] [place], [place] [phone] Scarlett Perez MD [address] [place] [phone] Pelvic pain (Primary Dx) Social History [...] [facility] [address] [place] [address] Rohit Ramirez 12/18/2025 9:30 AM EDT Office Visit [facility] [address] [place] [address] Shelby Abraham documented as of this encounter Procedures Procedure Name Priority Date/Time Associated Diagnosis Comments US PELVIS TRANSVAGINAL Routine 07/04/2025 1:53 PM EST Pelvic pain documented in this encounter Results * US Pelvis Transvaginal (07/04/2025 1:53 PM EST) Anatomical Region Laterality Modality Pelvis Ultrasound 07/04/2025 1:53 PM EST Narrative 07/05/2025 11:03 AM EST [address] [address] Ultrasound Report Signed Patient: Bonnie Worthy MR#: [id number] : 1970 Acct:[id number] Age/Sex: 54 / F ADM Date: 07/04/25 Loc: HO.US Attending Dr: Scarlett Perez MD Ordering Physician: Scarlett Perez Date of Service: 07/04/25 Procedure(s): US pelvic and transvaginal Accession Number(s): [id number] cc: Scarlett Perez Reason for Exam: pelvic [...] 07/05/25 1100 DD/ 1353 TD/TT: 07/04/25 1400 Wet Process Operator: ROMY Procedure Note Donotuseinterpreter, Image - 07/05/[address] [address] Ultrasound Report Signed Patient: Silverio Worthy#: [id number] : 1970Acct:[id number] Age/Sex: 54 / FADM Date: 07/04/25 Loc: HO.US Attending Dr: Scarlett Perez MD Ordering Physician: Scarlett Perez Date of Service: 07/04/25 Procedure(s): US pelvic and transvaginal Accession Number(s): [id number] cc: Scarlett Perez Reason for Exam: pelvic [...] by: Mark Welch MD 07/05/2025 11:00 AM [facility] Dictated By: Mark Welch MD Signed By: <Electronically signed by Mark Welch MD in OV> 07/05/25 1100 DD/ 1353 TD/TT: 07/04/25 1400 Wet Process Operator: ROMY us Scarlett Perez MD IMG US PROCEDURES Final Result documented in this encounter Visit Diagnoses Diagnosis Pelvic pain- Primary documented in this encounter Additional Health Concerns Assessment Noted Time PHQ-9 Depression Total Score: 0 05/16/20 3:13 PM EDT documented as of this encounter Care Teams Court Magistrate Relationship Specialty Start Date End Date Scarlett Perez MD [address] [place] [address] PCP - General Family Medicine 12/25/24 documented as of this encounter
--- OUTSIDE RECORDS SUMMARY | 2025-07-10 09:17 | XMS_ITS | Encounter Summary ---
Author Organization [employer] Address [address] 7[address] [place] [address] Care Team Providers Care Line Assigner Name Role Phone Scarlett Perez MD Primary Care Provider [phone] Reason for Visit * Reason Onset Date Comments insurance discrepancy rs appt 06/07/2025 Encounter Details Date Type Department Care Team ([facility] st Contact Info) Description 06/07/2025 Telephone [facility] [address] [place] [address] Rohit Ramirez insurance discrepancy rs appt Social [...] verification MMIS Partial Health Safety Net Portal [employer]. documented in this encounter Plan of Treatment Upcoming Encounters Date Type Department Care Team (Late st Contact Info) Description 07/31/2025 9:30 AM EST Office Visit [facility] [address] [place] [address] Rohit Ramirez 12/18/2025 9:30 AM EDT Office Visit [facility] [address] [place] [address] Shelby Abraham documented as of this encounter Visit Diagnoses Not on filedocumented in this encounter Additional Health Concerns Assessment Noted Time PHQ-9 Depression Total Score: 0 05/16/20 25 3:13 PM EDT documented as of this encounter Care Teams Line Assigner Relationship Specialty Start Date End Date Scarlett Perez MD [address] [place] [phone] PCP - General Family Medicine 12/25/24 documented as of this encounter
--- OUTSIDE RECORDS SUMMARY | 2025-07-10 09:17 | XMS_ITS | Encounter Summary ---
Author Organization [employer] Address [address] [place] [address] Care Team Providers Care Fruit Cutter Name Role Phone Scarlett Perez MD Primary Care Provider [phone] Reason for Visit * Reason Onset Date Comments Medication Question 05/24/2025 Encounter Details Date Type Department Care Team ([facility] st Contact Info) Description 05/24/2025 Telephone [facility] MED[facility] [address] [place], [place] [phone] Scarlett Perez MD [address] [place] [address] Medication Question Social History Tobacco Use Types [...] the past 12 months, has t he [employer], gas, oil or water company threatened to [...] 10:42 AM EST TC placed to patient [phone] via [employer] (Yoselyn #[id number]) in regards to below message.Patient verbalized understanding [...] 4:33 PM EST TC placed to patient [phone] via [employer] (Todd #[id number]) in regards to below message.Patient reports the [...] on menopause. Any questions contact pt at [phone] documented in this encounter Plan of Treatment Upcoming Encounters Date Type Department Care Team (Late st Contact Info) Description 07/31/2025 9:30 AM EST Office Visit [facility]ULT [facility] [address] [place] [address] Rohit Ramirez 12/18/2025 9:30 AM EDT Office Visit [facility] [address] [place] [address] Shelby Abraham documented as of this encounter Visit Diagnoses Not on filedocumented in this encounter Additional Health Concerns Assessment Noted Time PHQ-9 Depression Total Score: 0 05/16/20 3:13 PM EDT documented as of this encounter Care Teams Fruit Cutter Relationship Specialty Start Date End Date Scarlett Perez MD [address] [place] [address] PCP - General Family Medicine 12/25/24 documented as of this encounter
--- OUTSIDE RECORDS SUMMARY | 2025-07-10 09:17 | XMS_ITS | Patient Health Record ---
Author Organization [facility] Address [address] [place] [phone] Care Team Providers Care Public Relations Associate Name Role Phone MELVIN STORY Primary [...] Status Risk Notes Problem Chronic idiopathic constipation (91516572) Chronic idiopathic constipation (K59.04) Active confirmed Plan Of Treatment No Information Insurance Providers Payer Name Payer Address Payer Phone Subscriber Number Group Number Insured Name Patient Relationship to Insured Coverage Start Date Coverage End Date [facility] [address] [place] [address] [id number] Bonnie Jean Self - patient is the insured MEDICAID [address] [place] [address] [id number] Bonnie Jean Self - patient is the insured Medical (General) History Medical History History ICD Code hypothyroidism Surgical History Surgery Date(Month/Year) thyroidectomy
--- OUTSIDE RECORDS SUMMARY | 2025-07-10 09:17 | XMS_ITS | Encounter Summary ---
Author Organization [employer] Address [address] [facility] 7t [place] [address] Care Team Providers Care Manager Concrete Name Role Phone Scarlett Perez MD Primary Care Provider [phone] Reason for Visit * Reason Onset Date Comments Med Refill 09/27/2024 Encounter Details Date Type Department Care Team ([facility] st Contact Info) Description 09/27/2024 Telephone [facility] MED[facility] [address] [place], [place] [phone] Fermín Hernandez MD [address] [place] [address] Med Refill Social History Tobacco Use Types [...] 100 MCG tablet To be sent to: [facility] - [place], [place] - [address] [facility] documented in this encounter Plan of Treatment Upcoming Encounters Date Type Department Care Team (Late st Contact Info) Description 07/31/2025 9:30 AM EST Office Visit [facility] [address] [place] [address] Rohit Ramirez 12/18/2025 9:30 AM EDT Office Visit [facility] [address] [place] [address] Shelby Abraham documented as of this encounter Visit Diagnoses Not on filedocumented in this encounter Care Teams Manager Concrete Relationship Specialty Start Date End Date Scarlett Perez MD [address] [place] [address] PCP - General Family Medicine 12/25/24 documented as of this encounter
--- OUTSIDE RECORDS SUMMARY | 2025-07-10 09:18 | XMS_ITS | Encounter Summary ---
Author Organization [employer] Address [address] [place] [address] Care Team Providers Care Barback Name Role Phone Scarlett Perez MD Primary Care Provider [phone] Reason for Visit * Reason Onset Date Comments Results 07/05/2025 Encounter Details Date Type Department Care Team (Latest Contact Info) Description 07/05/2025 Results Follow-Up [facility] [address], [place] [id number] Scarlett Perez MD [address] [place] [address] US Pelvis Transvaginal Social History Tobacco Use Types Packs/Day Years [...] encounter Miscellaneous Notes * Telephone Encounter - Poppy Evans RN - 07/06/2025 2:29 PM EST TC placed again to pt., advised of normal pelvic US results. Advised of slightly elevated TSH, pt. Will continue taking 125mcg daily and recheck in 8-12 weeks. Order has been placed. Postponing message to 09/28/25 to remind pt. To return to lab * Telephone Encounter - Poppy Evans RN - 07/06/2025 10:05 AM EST TC placed to pt. At [phone] to advise of results, no answer, left VM. Will reattempt in pm if no c/b * Result Encounter Note - Scarlett Perez MD - 07/05/2025 7:17 PM EST Please let patient know that her pelvic US showed: Status post hysterectomy. Bilateral ovaries are not visualized. No mass or fluid collection is seen. This means her pelvis has a normal appearance. Her thyroid stimulating hormone was a little bit high, but her circulating amount of actual thyroid hormone was normal, so we should recheck in 8-12 weeks. I hope she has a vic holiday and new year! documented in this encounter Plan of Treatment Upcoming Encounters Date Type Department Care Team (Late st Contact Info) Description 07/31/2025 9:30 AM EST Office Visit [facility] [address] [place] [address] Rohit Ramirez 12/18/2025 9:30 AM EDT Office Visit [facility] [address] [place] [address] Shelby Abraham documented as of this encounter Visit Diagnoses Not on filedocumented in this encounter Additional Health Concerns Assessment Noted Time PHQ-9 Depression Total Score: 0 05/16/20 25 3:13 PM EDT documented as of this encounter Care Teams Barback Relationship Specialty Start Date End Date Scarlett Perez MD [address] [place] [phone] PCP - General Family Medicine 12/25/24 documented as of this encounter
== END 2025-07-10 09:34 | disposition home or self-care (01) ==
LOC: HO.HOS 08:55
PROVIDERS: PCP General Practice
DX: M65.342 Trigger finger, left ring finger (principal); R20.0 Anesthesia of skin; R20.2 Paresthesia of skin
CPT/HCPCS: 99213

== ENCOUNTER → 2025-07-10 08:55 | Outpatient (BNVA) | payer OTHER, SELFPAY | PROVIDERS: PCP General Practice | DX: M65.342 Trigger finger, left ring finger (principal); R20.0 Anesthesia of skin; R20.2 Paresthesia of skin | CPT/HCPCS: 99212 ==